=== PATIENT | male | born 1960 | race Caucasian/White ===

== ENCOUNTER 2021-12-16 09:45 | Emergency (ER) | payer OTHER, SELFPAY ==
[2021-12-16 09:45] VITALS: BP 106/77; PULSE 78; RESP 14; TEMP 36.4; O2SAT 93; BMI 25.1
--- NOTE | 2021-12-16 11:28 | RAD_ITS ---
STUDY: X-RAY - LEFT HAND, ATTENTION INDEX FINGER REASON FOR EXAM: Left index finger pain, finger injury. TECHNIQUE: 3 view(s) of the finger were obtained. COMPARISON: None. FINDINGS: Normal metacarpal head. Normal metacarpophalangeal joint. Normal proximal phalanx. Normal middle phalanx. Normal distal phalanx. Normal proximal interphalangeal joint. Normal distal interphalangeal joint. There is a laceration of the distal left index finger with a small foreign body. RAD/Finger(s) Min 2 Views IMPRESSION: Small foreign body in laceration of the distal index finger. Electronically Signed: Jeff Almonte MD at 12:23 EDT ,
--- NOTE | 2021-12-16 12:07 | NURSING ---
See downtime documentation for further information.
--- NOTE | 2021-12-16 12:11 | EX.ED.UPPERE ---
HPI History of Present Illness HPI Narrative: Left index fingertip partial amputation. Chief Complaint: Laceration Informant: patient Onset/Context/Timing Onset: Today Context: Sudden Onset Timing: Continuous Current Severity: Mild Maximum Severity: Mild Associated Symptoms Associated Symptoms: Negative for Parasthesia, Weakness and Loss of Funtion Narrative Narrative: 61-year-old male [id number]. He was at work using a post whole digger and caught his left index finger and it causing a partial rotation of the tip of his left index finger. This occurred about 915. He is unsure of his last tetanus shot will be updated. He does have history of diabetes, hypertension high cholesterol. Tetanus Immunization: Unknown Prior similar symptoms: No Recent Illness/Hospitalization: No PFSH PFSH Home Medications lisinopril 5 mg PO DAILY 08/07/15 [History Last Taken Unknown] metformin 1,000 mg PO BIDCM 08/07/15 [History Last Taken Unknown] ondansetron 4 mg PO Q8H PRN PRN #10 tab 08/07/15 [Rx Last Taken Unknown] oxycodone-acetaminophen 1 - 2 tab PO Q4H PRN PRN #20 tab 08/07/15 [Rx Last Taken Unknown] simvastatin 20 mg PO QHS 08/07/15 [History Last Taken Unknown] tamsulosin 0.4 mg PO DAILY 14 Days capsule 08/07/15 [Rx Last Taken Unknown] Allergy/AdvReac Type Severity Reaction Status Date / Time No Known Allergies Allergy Verified 08/07/15 22:03 Social History Smoking Status: Never smoker ROS ROS ED ROS Narrative Denies recent illness. Review of Systems ROS Unobtainable: Denies due to encephalopathy Constitutional Constitutional ED: Denies fever(s) Eyes Eyes: Denies change in vision ENT ENT ED: Denies ear pain Cardiovascular Cardiovascular: Denies chest pain Respiratory/Chest Respiratory/Chest: Denies dyspnea Gastrointestinal Gastrointestinal: Denies abdominal pain, nausea or vomiting Genitourinary Genitourinary ED: Denies dysuria Musculoskeletal Musculoskeletal: Denies myalgias Integumentary Denies rash Neurologic Neurologic: Denies headache(s) Psychiatric Psychiatric: Denies depression Endocrine Endocrinology: Denies polyuria Hematologic/Lymphatic Hematologic/Lymphatic: Denies easy bruising Allergic/Immunologic Allergic/Immunologic ED: Denies urticaria EXAM Physical Exam Narrative Exam Narrative: 61-year-old male vital signs stable afebrile. HEENT, neck, heart, lung and abdominal exams are unremarkable. His left index finger has a partial amputation of a circular area at the tip where he is basically taken out about 80 to 90% of the blood supply. There is oozing of blood. There is no foreign body. The nailbed and bone do not appear to be involved. He is full range of motion to the finger. There is no infection. No bony deformity. Normal touch sensation. Const Vital Signs: 12/16/21 09:45 Temperature 97.6 F L Temperature Source Temporal Pulse Rate 78 Respiratory Rate 14 Blood Pressure 106/77 Blood Pressure Mean 86 Pulse Ox 93 Oxygen Delivery Method Room Air Positive well nourished and well developed; Negative for obese, cachectic, contractures or unkempt General Appearance ED: well developed and NAD; Negative for unkempt, cachectic, contractures, cyanotic or diaphoretic Nutritional Appearance: Negative for cachectic or obese HEENT Reports moist mucous membranes normocephalic and atraumatic Eyes PERRL and EOMs intact bilaterally Neck full ROM and supple General: Negative for tenderness Chest Wall inspection of chest normal and palpation of chest normal Resp normal respiratory effort and clear to auscultation bilaterally Effort and Inspection: Negative for pain with movement Auscultation: Negative for rales, rhonchi or wheezes Cardio regular rate, regular rhythm, S1 normal heart sound, S2 normal heart sound and no murmurs GI non-tender, non-distended and no masses Auscultation: normoactive bowel sounds Palpation: soft; Negative for tender or guarding Back/Spine no CVA tenderness Extremity normal to inspection and full ROM Extremity Narrative: Except left index finger at the tip he has a circular area that is approximately 3 to 4 cm circumferentially. About 2 cm wide. Its been almost completely avulsed. The partial amputation. General Extremety ED: Negative for edema General Extremity: Negative for edema Neuro oriented x3 Sensorium / Orientation: alert, oriented to person, oriented to place and oriented to time Motor Exam: strength 5/5 throughout Psych mental status grossly normal Appearance: Negative for unkempt Skin Skin Narrative: Left index fingertip partial amputation. Lesions: no lesions Rashes: no rashes Trauma: laceration; Negative for no lacerations or abrasions MDM MDM MDM Narrative Medical decision making narrative: Worker's Comp. left index finger partial amputation. X-ray obtained was negative. No bony abnormality. No foreign body. Area was digitally blocked and repaired. Patient tolerated well. He was given wound care instructions. Tetanus was updated. Radiography Diagnostic Testing: Left index finger x-ray 3 views interpreted myself shows no acute abnormality. Soft tissue injury. No bony deformity. No foreign body. Procedures Lacerations Left index finger partial amputation at the tip: Length: 1.57 in Depth: Sub Q Shape: Flap Prep: Sterile Conditions and Shure-Clens Laceration repair: Digital block, Irrigated, Lidocaine, Nerve block, Skin sutures and Wound explored Number of Sutures/Jenny: 7 Suture Information: Ethilon, Simple and 4-0 Comment: Today fingertip partial amputation. Approximately 4 cm in length. It was circular. Flat. Washed. Explored. Irrigated. After digital block was repaired using 4-0 Ethilon sutures. 7 simple interrupted sutures. Patient tolerated procedure well. Discharge Plan Triage Chief Complaint: Laceration ED Provider: Primitivo Solano Dx/Rx/DC Orders Clinical Impression: Finger laceration, Encounter related to worker's compensation claim Instructions: ED Laceration, Hand: All Closures Prescriptions: No Action simvastatin 10 MG tablet 20 mg PO QHS RF: 0 metformin 1,000 MG tablet 1,000 mg PO BIDCM RF: 0 lisinopril 5 MG tablet 5 mg PO DAILY RF: 0 oxycodone-acetaminophen 1 TABLET tablet 1 - 2 tab PO Q4H PRN PRN (Reason: Pain) Qty: 20 RF: 0 ondansetron 4 MG tablet 4 mg PO Q8H PRN PRN (Reason: Nausea) Qty: 10 RF: 0 tamsulosin 0.4 MG capsule 0.4 mg PO DAILY 14 Days RF: 0 Primary Care Provider: Gregg Torrez Referrals: Gregg Torrez MD [Primary Care Provider] - 10 Day for suture removal Activity Restrictions/Additional Instructions: Keep the wound clean and dry. Do not soak it in bath water or dishwater. If it gets wet or dirty clean and dry it well. Ice and elevate to decrease pain and swelling. If our dressing stays dry and clean leave it on for for 5 days then change and clean daily. Remove the sutures in 10 days. We can do that, you can do it or your primary care physician's office. Any signs of infection such as pus, redness, streaks or fever return. If this takes it will heal nicely. If it does not the skin will dry up eventually come off and it will just be a larger wound that will take longer to heal. Disposition Disposition: Home, Self Care
== END 2021-12-16 12:32 | disposition home or self-care (01) ==
PROVIDERS: Emergency Provider Emergency Medicine; PCP Family Medicine; Visit Provider Emergency Medicine
DX: S68.121A Partial traumatic metacarpophalangeal amputation of left index finger, initial encounter (principal); E11.9 Type 2 diabetes mellitus without complications; E78.00 Pure hypercholesterolemia, unspecified; W23.0XXA Caught, crushed, jammed, or pinched between moving objects, initial encounter; Y99.0 Civilian activity done for income or pay; I10 Essential (primary) hypertension; Z79.899 Other long term (current) drug therapy; Z79.84 Long term (current) use of oral hypoglycemic drugs; Z23 Encounter for immunization
CPT/HCPCS: 12002; 99281; 73140; 90471; 90715; 99284

== ENCOUNTER 2022-05-13 20:25 | Emergency (ER) | payer OTHER, SELFPAY ==
[2022-05-13 20:26] VITALS: BP 131/82; PULSE 78; RESP 18; TEMP 36.7; O2SAT 99; BMI 24.1
--- NOTE | 2022-05-13 20:32 | RAD_ITS ---
STUDY: X-RAY CHEST REASON FOR EXAM: Male, 61 years old. HIT IN THE L RIBS TECHNIQUE: AP portable COMPARISON: None. FINDINGS: The lungs are clear and expanded. There is no demonstrated pleural abnormality. Normal size heart. Normal mediastinum and jono. Normal visualized pulmonary arteries. Normal visualized aortic arch and descending thoracic aorta. Dorsal spine demonstrates mild degenerative change Normal visualized ribs, clavicles, and shoulders. There is no demonstrated abnormality of the visualized soft tissue structures of the upper abdomen. RAD/Chest 1 View IMPRESSION: No acute cardiopulmonary pathology Electronically Signed: oJe Gold MD at 20:47 EDT ,
--- NOTE | 2022-05-13 22:35 | EDS_ITS ---
HPI History of Present Illness Chief Complaint: Other, Pain/Inj Detail of Chief Complaint: Left rib contusion Informant: patient Onset/Context/Timing Onset: Yesterday Current Severity: Mild Maximum Severity: Moderate Narrative Narrative: Patient presents after contusion to left lower ribs. Patient states he was cutting trees yesterday. A tree splintered and came back striking him in the left lower ribs. It knocked him backwards. He had to sit there for a few seconds to catch his breath. Tonight he has had intermittent sharp pain to the left lower ribs. He was concerned about possible internal injury so presented for evaluation. [facility] Medical History (Updated 05/13/22 @ 22:[address] Mariann Gates MD) BPH (benign prostatic hyperplasia) Diabetes High cholesterol Hypertension Medical History no medical history Home Medications lisinopril 5 mg tablet 5 mg PO DAILY 08/07/15 [History Last Taken Unknown] metformin 1,000 mg tablet 1,000 mg PO BIDCM 08/07/15 [History Last Taken Unknown] ondansetron 4 mg disintegrating tablet 4 mg PO Q8H PRN PRN Nausea #10 tabs 08/07/15 [Rx Last Taken Unknown] oxycodone-acetaminophen 5 mg-325 mg tablet 1 - 2 tab PO Q4H PRN PRN Pain #20 tabs 08/07/15 [Rx Last Taken Unknown] simvastatin 10 mg tablet 20 mg PO QHS 08/07/15 [History Last Taken Unknown] tamsulosin 0.4 mg capsule 0.4 mg PO DAILY 14 days 08/07/15 [Rx Last Taken Unknown] Allergy/AdvReac Type Severity Reaction Status Date / Time No Known Allergies Allergy Verified 05/13/22 20:29 Social History Smoking Status: Never smoker ROS ROS ED Constitutional Constitutional ED: Denies chills or fever(s) Eyes Eyes: Denies discharge from eye(s) ENT ENT ED: Denies discharge from eye(s), rhinorrhea or sore throat Cardiovascular Cardiovascular: Reports chest pain; Denies palpitations Respiratory/Chest Respiratory/Chest: Denies cough or dyspnea Gastrointestinal Gastrointestinal: Denies abdominal pain, nausea or vomiting Musculoskeletal Musculoskeletal: Denies back pain Integumentary Denies Abrasions or rash Neurologic Neurologic: Denies headache(s), paresthesias or weakness Psychiatric Psychiatric: Denies anxiety or depression Allergic/Immunologic Allergic/Immunologic ED: Denies lip swelling or urticaria EXAM Physical Exam Const Vital Signs: 05/13/22 20:26 Temperature 98.0 F Temperature Source Temporal Pulse Rate 78 Respiratory Rate 18 Blood Pressure 131/82 H Blood Pressure Mean 98 Pulse Ox 99 Oxygen Delivery Method Room Air Positive well nourished and well developed General Appearance ED: well developed HEENT Reports normocephalic and head/scalp atraumatic Eyes PERRL and EOMs intact bilaterally Neck supple Chest Wall inspection of chest normal Chest Narrative: Reproducible focal tenderness to the left lower anterior ribs along the cartilage/bone border. No crepitus noted. No overlying skin change. Resp normal respiratory effort and clear to auscultation bilaterally Cardio regular rate and regular rhythm GI normal to inspection, nondistended, normoactive bowel sounds Palpation: soft Neuro oriented x3 and no sensory deficits noted Sensorium / Orientation: alert Motor Exam: strength 5/5 throughout Psych mental status grossly normal Skin no rashes or lesions noted MDM MDM MDM Narrative Medical decision making narrative: Chest x-ray obtained per nursing protocol. Radiography Diagnostic Testing: Clinical Impression(s) from Imaging Studies Chest X-Ray 05/13/22 20:32 IMPRESSION: No acute cardiopulmonary pathology Electronically Signed: Joe Gold MD at 20:47 EDT , Treatment and Re-Evaluation Narrative: Chest x-ray per my interpretation shows no obvious rib fracture. No pneumothorax. No free air under the diaphragm. Radiology interpretation is reviewed and agrees. Patient has no tenderness over the spleen or abdomen. He has reproducible tenderness over the bony lower ribs. I do not feel patient needs further imaging. He will continue supportive care at home. Discharge Plan Triage Chief Complaint: Other, Pain/Inj ED Provider: Mariann Gates Dx/Rx/DC Orders Clinical Impression: Chest wall contusion Instructions: ED Chest Wall Contusion Prescriptions: No Action simvastatin 10 MG tablet 20 mg PO QHS metformin 1,000 MG tablet 1,000 mg PO BIDCM lisinopril 5 MG tablet 5 mg PO DAILY oxycodone-acetaminophen 1 TABLET tablet 1 - 2 tab PO Q4H PRN PRN (Reason: Pain) Qty: 20 0RF ondansetron 4 MG tablet 4 mg PO Q8H PRN PRN (Reason: Nausea) Qty: 10 0RF tamsulosin 0.4 MG capsule 0.4 mg PO DAILY 14 Days 0RF Stand Alone Forms: Work Status Form Primary Care Provider: Gregg Torrez Referrals: [facility] [Group of Physicians] - 3-5 Days Gregg Torrez MD [Primary Care Provider] - 10-14 Days if not better Disposition Disposition: Home, Self Care
[2022-05-13] MEDS: predniSONE 20 MG Tablet 40 MG PO (22:56)
== END 2022-05-13 23:06 | disposition home or self-care (01) ==
PROVIDERS: Emergency Provider Emergency Medicine; PCP Family Medicine; Visit Provider Emergency Medicine
DX: S20.20XA Contusion of thorax, unspecified, initial encounter (principal); E11.9 Type 2 diabetes mellitus without complications; R07.9 Chest pain, unspecified; E78.00 Pure hypercholesterolemia, unspecified; I10 Essential (primary) hypertension; X58.XXXA Exposure to other specified factors, initial encounter
CPT/HCPCS: 71045; 99283

== ENCOUNTER → 2025-04-13 | Outpatient (CLI) | payer BC, SELFPAY ==
--- OUTSIDE RECORDS SUMMARY | 2025-04-13 08:20 | XMS RPT_ITS | CCD ---
Author Organization [facility] Inform ion Partnership [facility] Care Team Providers Care Vehicle Safety Inspector Name Role Phone Cisco Koroma MD Primary Care Provider Cisco Koroma MD Primary Care Provider Abraham SLIP TENDER.Karrie KIM Unavailable Scot SLIP TENDER.Cal KIM Unavailable [phone] CISCO KOROMA Primary Care Unavailable KARRIE ROSARIO Attending Unavailable CISCO KOROMA Primary Care Unavailable KARRIE ROSARIO Referring Unavailable CISCO KOROMA Primary Care Unavailable KARRIE ROSARIO Attending Unavailable CISCO KOROMA Primary Care Unavailable KARRIE ROSARIO Referring Unavailable CISCO KOROMA Primary Care Unavailable KARRIE ROSARIO Attending Unavailable CISCO KOROMA Primary Care Unavailable KARRIE ROSARIO Referring Unavailable CISCO KOROMA Primary Care Unavailable KARRIE ROSARIO Attending Unavailable CISCO KOROMA Primary Care Unavailable KARRIE ROSARIO Referring Unavailable Cisco Koroma Primary Care Unavailable Karrie Rosario Attending Unavailable Medications Current Medications Medication Drug Class(es) Dates Sig (Normalized) Sig (Original) acetaminophen 325 mg / oxyCODONE hydrochloride 5 mg oral tablet (2 sources) Opioid Agonist Start: 08-07-2015 take 1 tablet by mouth every four hours as needed Oxycodone-Acetamino phen Active 1 - 2 TABLET PO EVERY 4 HOURS NEEDED August 08, 2015 12:27am aspirin 81 mg delayed release oral tablet (20 sources) Platelet Aggregation Inhibitor, Nonsteroidal Anti-inflammatory Drug Start: 04-18-2014 take 1 tablet by mouth once daily aspirin, enteric coated (ASPIRIN LOW DOSE) 81 mg EC tablet Take 1 tablet by mouth once daily. 0 04/18/2014 Active Comment on above: Take 1 tablet by [facility] once daily. benzonatate 100 mg oral capsule (16 sources) Non-narcotic Antitussive Start: 10-12-2022 take 1 capsule by mouth every eight hours as needed benzonatate (TESSALON PERLES) 100 mg capsule Take 1 capsule by mouth three times daily as needed for cough. 14 capsule 10/12/2022 Active Comment on above: Take 1 capsule by mo [facility] three times daily as needed for cough. 0.5 ml dulaglutide 3 mg/ml auto-injector (7 sources) GLP-1 Receptor Agonist Start: 09-26-2024 End: 03-25-2025 inject 1.5 mg by subcutaneous injection every week dulaglutide (TRULICITY) 1.5 mg/0.5 mL pen injector Indications: Controlled type 2 diabetes mellitus without complication, without long-term current use of insulin (HCC) Inject 1.5 mg subcutaneously one time a week. Discard Pen After 2 mL 5 09/26/2024 03/25/2025 Active Start: 06-06-2024 End: 12-03-2024 inject 0.75 mg by subcutaneous injection every week dulaglutide (TRULICITY) 0.75 mg/0.5 mL pen injector Indications: Controlled type 2 diabetes mellitus without complication, without long-term current use of insulin (HCC) Inject 0.75 mg subcutaneously one time a week. Inject dose once per week. Discard Pen After 2 mL 5 06/06/2024 09/26/2024 Discontinued glimepiride 4 mg oral tablet (20 sources) Sulfonylurea Start: 09-22-2021 End: 10-24-2024 take 2 tablets by mouth once daily at breakfast glimepiride (AMARYL) 4 mg tablet Indications: Controlled type 2 diabetes mellitus without complication, without long-term current use of insulin (HCC) Take 2 tablets by mouth daily with breakfast. 180 tablet 3 10/24/2024 Active Comment on above: Take 2 tablets by mo [facility] daily with breakfast. TAKE 2 TABLETS BY MO [facility] DAILY WITH BREAKFAST lisinopril 2.5 mg oral tablet (20 sources) Angiotensin Converting Enzyme Inhibitor Start: 09-16-2021 End: 10-24-2024 take 1 tablet by mouth once daily lisinopril 2.5 mg tablet Take 1 tablet by mouth once daily. 90 tablet 3 10/24/2024 Active Start: 08-07-2015 take 5 mg by mouth once daily Lisinopril Active 5 MG PO DAILY August 07, 2015 11:25pm Comment on above: Take 1 tablet by berna th once daily. take 1 tablet by berna th once daily metFORMIN hydrochloride 1000 mg oral tablet (20 sources) Biguanide Start: 016 End: 025 take 1 tablet by mouth twice daily at mealtime metFORMIN (GLUCOPHAGE) 1,000 mg tablet Indications: Controlled type 2 diabetes mellitus without complication, without long-term current use of insulin (HCC) Take 1 tablet by mouth two times a day with meals. 180 tablet 3 10/24/2024 Active Comment on above: Take 1 tablet by berna th twice daily with meals. take 1 tablet by berna th twice daily with meals ondansetron 4 mg disintegrating oral tablet (2 sources) Serotonin-3 Receptor Antagonist Start: 016 take 4 mg by mouth every eight hours as needed Ondansetron Active 4 MG PO EVERY 8 HOURS NEEDED August 08, 2015 12:27am pioglitazone 30 mg oral tablet (10 sources) Peroxisome Proliferator Receptor alpha Agonist, Peroxisome Proliferator Receptor gamma Agonist, Thiazolidinedione Start: 024 End: 026 take 1 tablet by mouth once daily pioglitazone (ACTOS) 30 mg tablet Indications: Controlled type 2 diabetes mellitus without complication, without long-term current use of insulin (HCC) Take 1 tablet by mouth once daily. 90 tablet 3 10/24/2024 10/24/2025 Active Start: 11-09-2023 End: 02-08-2024 take 1 tablet by mouth once daily pioglitazone (ACTOS) 15 mg tablet Indications: Controlled type 2 diabetes mellitus without complication, without long-term current use of insulin (HCC) Take 1 tablet by mouth once daily. 30 tablet 11 11/09/2023 02/08/2024 Discontinued Comment on above: Take 1 tablet by berna th once daily. predniSONE 20 mg oral tablet (2 sources) Start: 10-13-19 End: 10-17-19 take 2 tablets by mouth once daily at mealtime predniSONE (DELTASONE) 20 mg tablet Take 2 tablets by mouth once daily for 4 days. Take daily with food. 8 tablet 0 10/12/2022 10/16/2022 Active Comment on above: Take 2 tablets by mo [facility] once daily for 4 days. Take daily with food. propranolol hydrochloride 10 mg oral tablet (1 source) beta-Adrenergic Reza Start: 10-25-19 End: 04-22-20 take 1 tablet by mouth twice daily propranolol (INDERAL) 10 mg tablet Indications: Tremor Take 1 tablet by mouth two times a day. 60 tablet 5 10/24/2024 04/22/2025 Active simvastatin 20 mg oral tablet (20 sources) HMG-CoA Reductase Inhibitor Start: 09-16-19 End: 10-25-19 take 1 tablet by mouth once daily at bedtime simvastatin (ZOCOR) 20 mg tablet Indications: Controlled type 2 diabetes mellitus without complication, without long-term current use of insulin (HCC) , Mixed hyperlipidemia Take 1 tablet by mouth daily at bedtime. 90 tablet 3 10/24/2024 Active Start: 08-07-2015 take 20 mg by mouth at bedtime Simvastatin Active 20 MG PO AT BEDTIME August 07, 2015 11:25pm Comment on above: Take 1 tablet by berna daily at bedtime. take 1 tablet by berna th daily at bedtime SUMAtriptan 100 mg oral tablet (20 sources) Serotonin-1b and Serotonin-1d Receptor Agonist Start: 022 End: SUMAtriptan (IMITREX) 100 mg tablet Indications: Migraine without aura, intractable, without status migrainosus Take 1 tablet by mouth as needed for migraine headache (see administration instructions). 9 tablet 5 11/08/2022 Active Comment on above: Take 1 tablet by berna th as needed for migraine headache (see administration instructions). tamsulosin hydrochloride 0.4 mg oral capsule (2 sources) alpha-Adrenergic Reza Start: 016 take 0.4 mg by mouth once daily Tamsulosin Active 0.4 MG PO DAILY August 08, 2015 12:27am traZODone hydrochloride 100 mg oral tablet (5 sources) Serotonin Reuptake Inhibitor Start: 024 End: 025 take 1 tablet by mouth once daily at bedtime traZODone (DESYREL) 100 mg tablet Indications: Difficulty sleeping Take 1 tablet by mouth daily at bedtime. 30 tablet 5 02/08/2024 08/06/2024 Active Start: 11-09-2023 End: 02-07-2024 take 1 tablet by mouth once daily at bedtime traZODone (DESYREL) 50 mg tablet Indications: Difficulty sleeping Take 1 tablet by mouth daily at bedtime. 30 tablet 2 11/09/2023 02/07/2024 Active Comment on above: Take 1 tablet by berna th daily at bedtime. Problems Active Problems Problem Classification Problem Date Documented Da te Episodic/Chronic Chronic obstructive pulmonary disease and bronchiectasis (1 source) Bronchitis; Translations: [Bronchitis, not specified as acute or chronic] Episodic Diabetes mellitus without complication (20 sources) Type 2 diabetes mellitus without complication; Translations: [Type 2 diabetes mellitus without complications] Onset: 01-15-2009 07-18-2015 Chronic Disorders of lipid metabolism (20 sources) Mixed hyperlipidemia; Translations: [Mixed hyperlipidemia] Onset: 01-15-2009 01-15-2009 Chronic Essential hypertension (5 sources) Essential hypertension; Translations: [Essential (primary) hypertension] Onset: 02-08-2024 11-07-2023 Chronic Headache; including migraine (20 sources) Migraine without aura, not refractory ; Translations: [Migraine without aura, not intractable, without status migrainosus] Onset: 02-24-2018 02-24-2018 Chronic Open wounds of extremities (2 sources) Laceration of finger; Translations: [Laceration without foreign body of unspecified finger without damage to nail, initial encounter] Episodic Other aftercare (1 source) Removal of sutures done; Translations: [Encounter for removal of sutures] Episodic Other hereditary and degenerative nervous system conditions (20 sources) Essential tremor; Translations: [Essential tremor] Onset: 07-18-2015 07-18-2015 Chronic Other injuries and conditions due to external causes (1 source) Injury of finger; Translations: [Unspecified injury of left wrist, hand and finger(s), initial encounter] Episodic Other injuries and conditions due to external causes (1 source) Muscle strain; Translations: [Other injury of unspecified body region, initial encounter] Episodic Other lower respiratory disease (1 source) Cough; Translations: [Acute cough] Episodic Other lower respiratory disease (1 source) Cough; Translations: [Acute cough] 10-12-2022 Episodic Other nervous system disorders (2 sources) Tremor; Translations: [Tremor, unspecified] 06-06-2024 Episodic Other nervous system disorders (1 source) Tremor, unspecified; Translations: [Tremor] Onset: 10-24-2024 Episodic Other non-traumatic joint disorders (2 sources) Pain in elbow; Translations: [Pain in right elbow] Episodic Residual codes; unclassified (3 sources) Difficulty sleeping ; Translations: [Sleep disorder, unspecified] 11-09-2023 Episodic Superficial injury; contusion (1 source) Contusion of chest; Translations: [Contusion of unspecified front wall of thorax, initial encounter] Episodic Past or Other Problems Problem Classification Problem Date Documented Da te Episodic/Chronic Abdominal pain (9 sources) Abdominal pain; Translations: [Unspecified abdominal pain] Onset: 02-21-2007 Resolved: 08-28-2010 08-28-2010 Episodic Administrative/social admission (12 sources) Patient encounter status; Translations: [Encounter for examination for insurance purposes] Onset: 07-15-2008 Resolved: 08-28-2010 08-28-2010 Episodic Calculus of urinary tract (20 sources) Kidney stone; Translations: [Calculus of kidney] Onset: 02-13-2016 02-13-2016 Episodic Immunizations and screening for infectious disease (1 source) Encounter for immunization; Translations: [Encounter for immunization] Onset: 06-06-2024 Episodic Other injuries and conditions due to external causes (20 sources) Foreign body in left cornea; Translations: [Foreign body in cornea, left eye, initial encounter] Onset: 07-20-2018 07-20-2018 Episodic Residual codes; unclassified (1 source) Sleep disorder, unspecified; Translations: [Difficulty sleeping] Onset: 02-08-2024 Episodic Spondylosis; intervertebral disc disorders; other back problems (20 sources) Cervical radiculopathy; Translations: [Radiculopathy, cervical region] Onset: 10-01-2010 10-01-2010 Episodic Results Test Name Value Interpretation Reference Range Facility [facility] 10-24-2024 CNOV Office Visit (FAMPWS ) ERICK SERNA ([id number]) 1960 M Date Time Provider Department 10/24/24 3:20 PM KARRIE ROSARIO During your visit today, we recorded the following information about you: Pulse Respiration Blood pressure Weight 98/minute 16/minute 130/88 75.5 kg Karrie Rosario APRN.CNP 10/24/2024 6:31 PM Signed This is a 63 year old male who presents today with: Patient presents with: Follow Up: 3 month HISTORY OF PRESENT ILLNESS: Erick Serna is a 63 year old male. Patient presents with: Follow Up: 3 month 3 month follow up Tremor in the hands bilaterally, has been on going for years. 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 Denies difficulty with gait, no family history of Parkinson's. Refers that symptoms seem to be getting worse. Has noticed some trouble trying to weld at work. Has an active consult for neurology, has yet to schedule. DM: Reports overall feeling well. Medication side effects: No. Home sugar checks: 130-150's Hypoglycemic spells: No. Watching diet: Trying to work on watching diet but due to work will eat late. Likes sweets. Unexpected weight loss: No. Polyuria, polydipsia: No. Vision Changes: No. Foot lesions or numbness or pain: No. Taking Metformin 1000 mg BID, amaryl 4 mg, 2 tablets daily, Actos 30 mg daily, and in September increase Trulicity 1.5 mg weekly. Had to stop Amaryl due to hypoglycemia, since he has been out of Trulicity due to cost started back on current dosing of Amaryl. Last A1C 7.0. Repeat labs due in November. due for eye exam. Refers that he has been having difficulty getting Trulicity due to insurance deductible. Has noticed some tingling in the tip of the feet at the end of the day and then resolves. Noitces in the morning and evening. HTN: Taking Lisinopril 2.5 mg for kidney protection. Migraines: Stable without medication Lipids: Taking atorvastatin 20 mg daily. Watching diet. Colonoscopy: Past due, would like to address at next visit. PAST MEDICAL HISTORY: PAST MEDICAL HISTORY Diagnosis Date Back pain Essential hypertension Hypercholesteremia Other and unspecified hyperlipidemia Type II or unspecified type diabetes mellitus without mention of complication, not stated as uncontrolled PAST SURGICAL HISTORY Procedure Laterality Date APPENDECTOMY 1990 COLONOSCOPY FLX DX W/COLLJ SPEC WHEN PFRMD Colonoscopy PAST SURGICAL HISTORY OF 05/23/2002 VENTERAL HERNIA REPAIR ALLERGIES Patient has no known allergies. MEDICATIONS Current Outpatient Medications Medication Sig dulaglutide (TRULICITY) 1.5 mg/0.5 mL pen injector Inject 1.5 mg subcutaneously one time a week. Discard Pen After pioglitazone (ACTOS) 30 mg tablet Take 1 tablet by mouth once daily. simvastatin (ZOCOR) 20 mg tablet take 1 tablet by mouth daily at bedtime lisinopril 2.5 mg tablet take 1 tablet by mouth once daily glimepiride (AMARYL) 4 mg tablet TAKE 2 TABLETS BY MOUTH DAILY WITH BREAKFAST metFORMIN (GLUCOPHAGE) 1,000 mg tablet take 1 tablet by mouth twice daily with meals SUMAtriptan (IMITREX) 100 mg tablet Take 1 tablet by mouth as needed for migraine headache (see administration instructions). benzonatate (TESSALON PERLES) 100 mg capsule Take 1 capsule by mouth three times daily as needed for cough. (Patient not taking: Reported on 12/29/2022) blood sugar diagnostic (BLOOD GLUCOSE TEST) test strip Test blood sugar(s) 1 times daily. Dx: Type 2 DM - Controlled E11.9 Insulin: No aspirin, enteric coated (ASPIRIN LOW DOSE) 81 mg EC tablet Take 1 tablet by mouth once daily. No current facility-administered medications for this visit. FAMILY HISTORY Problem Relation Age of Onset Diabetes Father No Ocular Disease No Family History Social History Tobacco Use Smoking status: Never Smokeless tobacco: Never Vaping Use Vaping status: Never Used Substance Use Topics Alcohol use: No Drug use: No REVIEW OF SYSTEMS GENERAL: No weight loss, malaise or fevers/chills HEENT: Negative for frequent or significant headaches, No changes in hearing or vision. NECK: Negative for lumps, goiter, pain and significant neck swelling RESPIRATORY: Negative for cough, hemoptysis, wheezing, dyspnea or shortness of breath CARDIOVASCULAR: Negative for chest pain, leg swelling, orthopnea, or palpitations GI: No nausea, vomiting, or diarrhea/constipation. No hematochezia/melena. No heartburn or reflux symptoms. : No history of dysuria, frequency or incontinence MUSCULOSKELETAL: Negative for joint pain or swelling. SKIN: Negative for lesions, rash, and itching ENDOCRINE: Negative for cold or heat intolerance, polyuria, polydipsia and goiter NEURO: + Tremor MOOD: Negative for depression, anxiety, or suicidal ideation. EXAM: BP 130/88 Pulse 98 Resp 16 Wt 75.5 kg (166 lb 7.2 oz) SpO2 98% BMI 23.21 (more content not included)... [facility] (FAMWS) ERICK SERNA ([id number]) 1960 M Date Time Provider Department 09/03/24 [facility] During your visit today, we recorded the following information about you: Karrie Rosario APRN.JULIO 09/03/2024 9:09 AM Signed Can you please call the patient and let him know that I reviewed his lab results. Labs are relatively stable. A1c went from 7.6 to 7.0. I would recommend increasing the Trulicity 1.5 mg weekly and recheck fasting labs in 3 months with office visit. Please let me know what he prefers. I would like him to continue to work on eating a low-carb diet and get some form exercise. Thank you. Karrie Rosario APRN.Garry Kennedy LPN 09/03/2024 9:27 AM Signed Patient notified of results, verbalizes understanding of instructions. Pt made 3 month appt. Garry Gonsales LPN Allergies As of Date: 09/03/2024 (No Known Allergies) Date Reviewed: 06/06/2024 Reviewed by: Garry Gonsales LPN - Fully Assessed Reason for Visit: Results [95] Cmt: Labs Primary Visit Diagnosis:Controlled type 2 diabetes mellitus without complication, without long-term current use of insulin (HCC) [E11.9] Other Visit Diagnosis:Mixed hyperlipidemia [E78.2] Order(s):COMPREHENSIVE METABOLIC PANEL [SQCMP] Order #: [id number] FUTURE HEMOGLOBIN A1C [WLYCW7E] Order #: [id number] FUTURE LIPID PANEL BASIC [SQLIPB] Order #: [id number] FUTURE Prescriptions as of 09/03/2024 - dulaglutide (TRULICITY) 0.75 mg/0.5 mL pen injector Inject 0.75 mg subcutaneously one time a week. Inject dose once per week. Discard Pen After - pioglitazone (ACTOS) 30 mg tablet Take 1 tablet by mouth once daily. - simvastatin (ZOCOR) 20 mg tablet take 1 tablet by mouth daily at bedtime - lisinopril 2.5 mg tablet take 1 tablet by mouth once daily - glimepiride (AMARYL) 4 mg tablet TAKE 2 TABLETS BY MOUTH DAILY WITH BREAKFAST - metFORMIN (GLUCOPHAGE) 1,000 mg tablet take 1 tablet by mouth twice daily with meals - SUMAtriptan (IMITREX) 100 mg tablet Take 1 tablet by mouth as needed for migraine headache (see administration instructions). - benzonatate (TESSALON PERLES) 100 mg capsule Take 1 capsule by mouth three times daily as needed for cough. - blood sugar diagnostic (BLOOD GLUCOSE TEST) test strip Test blood sugar(s) 1 times daily. Dx: Type 2 DM - Controlled E11.9 Insulin: No - aspirin, enteric coated (ASPIRIN LOW DOSE) 81 mg EC tablet Take 1 tablet by mouth once daily. Problem List As Of Date 09/03/2024 Noted Resolved Abdominal pain, other specified site [R10.9] 02/21/2007 08/28/2010 Screening for unspecified condition [Z13.9] 07/15/2008 08/28/2010 MIXED HYPERLIPIDEMIA [E78.2] 01/15/2009 Diabetes mellitus type 2, controlled, without c*01/15/2009 Cervical radiculopathy [M54.12] 10/01/2010 Benign essential tremor [G25.0] 07/18/2015 Kidney stone [N20.0] 02/13/2016 Migraine without aura and without status migrai*02/24/2018 Foreign body of left cornea [T15.02XA] 07/20/2018 Type 2 diabetes mellitus without retinopathy (H*07/20/2018 Encounter Status:Closed by GARRY GONSALES on 09/03/24 Normal [facility] Comprehensive metabolic 2000 panelon 08-31-2024 Albumin [Mass/Vol] 4.2 g/dL Normal 3.9-4.9 [facility] Comment on above: Order Comment: Speci men Type: BLOOD SPECIMEN Ordering Facility: [facility] Address: [address] [place] [address] Performed By: #### 5 5454-3 #### [facility] CLIA [id number] [address] [place] [address] [place] ALP [Catalytic activity/Vol] 64 U/L Normal 38-113 [facility] Comment on above: Order Comment: Speci men Type: BLOOD SPECIMEN Ordering Facility: [facility] Address: [address] [place] [address] Performed By: #### 5 5454-3 #### [facility] CLIA [id number] [address] [place] [address] [place] ALT [Catalytic activity/Vol] 16 U/L Normal 10-54 [facility] Comment on above: Order Comment: Speci men Type: BLOOD SPECIMEN Ordering Facility: [facility] Address: [address] [place] [address] Performed By: #### 5 5454-3 #### [facility] CLIA [id number] [address] [place] [address] [place] Anion gap [Moles/Vol] 11 mmol/L Normal 8-15 [facility] Comment on above: Order Comment: Speci men Type: BLOOD SPECIMEN Ordering Facility: [facility] Address: [address] [place] [address] Performed By: #### 5 5454-3 #### [facility] CLIA [id number] [address] [place] [address] [place] AST [Catalytic activity/Vol] 19 U/L Normal 14-40 [facility] Comment on above: Order Comment: Speci men Type: BLOOD SPECIMEN Ordering Facility: [facility] Address: [address] [place] [address] Performed By: #### 5 5454-3 #### [facility] CLIA [id number] [address] [place] [address] [place] Bilirubin [Mass/Vol] 0.8 mg/dL Normal 0.2-1.3 [facility] Comment on above: Order Comment: Speci men Type: BLOOD SPECIMEN Ordering Facility: [facility] Address: [address] [place] [address] Performed By: #### 5 5454-3 #### [facility] CLIA [id number] [address] [place] [address] [place] Calcium [Mass/Vol] 8.8 mg/dL Normal 8.5-10.2 [facility] Comment on above: Order Comment: Speci men Type: BLOOD SPECIMEN Ordering Facility: [facility] Address: [address] [place] [address] Performed By: #### 5 5454-3 #### [facility] CLIA [id number] [address] [place] [address] [place] Chloride [Moles/Vol] 104 mmol/L Normal 98-107 [facility] Comment on above: Order Comment: Speci men Type: BLOOD SPECIMEN Ordering Facility: [facility] Address: [address] [place] [address] Performed By: #### 5 5454-3 #### [facility] CLIA [id number] [address] [place] [address] [place] CO2 [Moles/Vol] 27 mmol/L Normal 22-30 [facility] Comment on above: Order Comment: Speci men Type: BLOOD SPECIMEN Ordering Facility: [facility] Address: [address] [place], [place] [id number] Performed By: #### 5 5454-3 #### [facility] CLIA [id number] [address] [place] [address] [place] Creatinine [Mass/Vol] 1.29 mg/dL High 0.73-1.22 [facility] Comment on above: Order Comment: Anaya cuevas Type: BLOOD SPECIMEN Ordering Facility: [facility] Address: [address] [place] [address] Performed By: #### 5 5454-3 #### [facility] CLIA [id number] [address] [place] [address] [place] Creatinine and Glomerular filtration rate.predicted panel (S/P/Bld) 62 mL/min/1.73m??? Normal >=60 [facility] Comment on above: Order Comment: Anaya cuevas Type: BLOOD SPECIMEN Ordering Facility: [facility] Address: [address] [place] [address] Result Comment: Guera mated Glomerular Filtration Rate (eGFR) is calculated using the 2020 CKD-EPI creatinine equation. This equation utilizes serum creatinine, sex, and age as parameters. The creatinine assay has traceable calibration to isotope dilution-mass spectrometry. Refer to KDIGO guidelines for clinical interpretation. In patients with unstable renal function, e.g. those with acute kidney injury, the eGFR may not accurately reflect actual GFR. Performed By: #### 5 5454-3 #### [facility] CLIA [id number] [address] [place] [address] [place] Glucose [Mass/Vol] 142 mg/dL High 74-99 [facility] Comment on above: Order Comment: Anaya cuevas Type: BLOOD SPECIMEN Ordering Facility: [facility] Address: [address] [place] [address] Result Comment: The [place] Diabetes Association (ADA) provides guidance for cutoff values for fasting glucose and random glucose. The ADA defines fasting as no caloric intake for at least 8 hours. Fasting plasma glucose results between 100 to 125 mg/dL indicate increased risk for diabetes (prediabetes). Fasting plasma glucose results greater than or equal to 126 mg/dL meet the criteria for diagnosis of diabetes. In the absence of unequivocal hyperglycemia, results should be confirmed by repeat testing. In a patient with classic symptoms of hyperglycemia or hyperglycemic crisis, random plasma glucose results greater than or equal to 200 mg/dL meet the criteria for diagnosis of diabetes. Reference: Standards of Medical Care in Diabetes 2016, [place] Diabetes Association. Diabetes Care. 2016.39(Suppl 1). Performed By: #### 5 5454-3 #### [facility] CLIA [id number] [address] [place] [address] [place] Potassium [Moles/Vol] 5.1 mmol/L Normal 3.7-5.1 [facility] Comment on above: Order Comment: Speci men Type: BLOOD SPECIMEN Ordering Facility: [facility] Address: [address] [place] [address] Performed By: #### 5 5454-3 #### [facility] CLIA [id number] [address] [place] [address] [place] Protein [Mass/Vol] 6.5 g/dL Normal 6.3-8.0 [facility] Comment on above: Order Comment: Speci men Type: BLOOD SPECIMEN Ordering Facility: [facility] Address: [address] [place] [address] Performed By: #### 5 5454-3 #### [facility] CLIA [id number] [address] [place] [address] [place] Sodium [Moles/Vol] 142 mmol/L Normal 136-144 [facility] Comment on above: Order Comment: Speci men Type: BLOOD SPECIMEN Ordering Facility: [facility] Address: [address] [place] [address] Performed By: #### 5 5454-3 #### [facility] CLIA [id number] [address] [place] [address] [place] Urea nitrogen [Mass/Vol] 29 mg/dL High 9-24 [facility] Comment on above: Order Comment: Speci men Type: BLOOD SPECIMEN Ordering Facility: [facility] Address: [address] [place] [address] Performed By: #### 5 5454-3 #### [facility] [place] [id number] [address] [place] [address] OF [facility] HbA1c (Bld)on 08-31-2024 Average glucose Estimated from glycated hemoglobin (Bld) [Mass/Vol] 154 mg/dL Normal [facility] Comment on above: Order Comment: Anaya cuevas Type: BLOOD SPECIMEN Ordering Facility: [facility] Address: [address] [place] [address] Result Comment: eAG: (Estimated average glucose) is a calculated value from HgbA1c and is advertising sales representative of the average blood glucose level in the last 2-3 month period. Performed By: #### 5 5454-3 #### [facility] IA [id number] [address] [place] [address] HbA1c (Bld) [Mass fraction] 7.0 % High 4.3-5.6 [facility] Comment on above: Order Comment: nAaya cuevas Type: BLOOD SPECIMEN Ordering Facility: [facility] Address: [address] [place] [address] Result Comment: Amer [place] Diabetes Association guidelines indicate that patients with HgbA1c in the range 5.7-6.4% are at increased risk for development of diabetes, and intervention by lifestyle modification may be beneficial. HgbA1c greater or equal to 6.5% is considered diagnostic of diabetes. Performed By: #### 5 5454-3 #### [facility] IA [id number] [address] [place] [address] OF [facility] Marcial 07-30-2024 CNPN Telephone (FAMPWS) ERICK SERNA ([id number]) 1960 M Date Time Provider Department 07/30/24 CISCO KOROMA During your visit today, we recorded the following information about you: Jessica Yin RN 07/30/2024 4:14 PM Signed Patient calling to give Karrie Rosario CNP a message. Patient reports Karrie ordered him Trulicity a couple months ago. He was able to pay $25-34 per month over the last 2 months, but his pharmacy has informed him that it will now cost him $900 a month. Patent states he cannot afford this and asking if Karrie can advise him. Patient also states his pharmacy told him that he will most likely have a high cost no matter what injectable medication is ordered.due to him having a high deducible. He believes he will likely have to take oral medication, moving forward, but he will await response from Karrie. Sandie advise patient. Thank you. Karrie Rosario APRN.JULIO 07/31/2024 12:34 PM Signed Can you please call the patient back and let him know that he has a couple options to consider. Most of the injectables such as Ozempic and Mounjaro offer savings cards on their websites. Usually this will give you a deal for 24 months. If he prefers to use oral medication this would include SGLT2 medication such as Farxiga or Jardiance. He is Welcome to check with his insurance to evaluate cost. Thank you Karrie Rosario APRN.Ami Thompson RN 07/31/2024 1:16 PM Signed Pt called and is notified of providers results and instructions. Pt voices understanding. He is going to see if his insurance will put the medication through now. He is going to call and see about the cost and will call back in. Ami Nova RN Allergies As of Date: 07/30/2024 (No Known Allergies) Date Reviewed: 06/06/2024 Reviewed by: Garry Gonsales LPN - Fully Assessed Reason for Visit: Patient Request [1696] Prescriptions as of 08/03/2024 - dulaglutide (TRULICITY) 0.75 mg/0.5 mL pen injector Inject 0.75 mg subcutaneously one time a week. Inject dose once per week. Discard Pen After - pioglitazone (ACTOS) 30 mg tablet Take 1 tablet by mouth once daily. - traZODone (DESYREL) 100 mg tablet Take 1 tablet by mouth daily at bedtime. - simvastatin (ZOCOR) 20 mg tablet take 1 tablet by mouth daily at bedtime - lisinopril 2.5 mg tablet take 1 tablet by mouth once daily - glimepiride (AMARYL) 4 mg tablet TAKE 2 TABLETS BY MOUTH DAILY WITH BREAKFAST - metFORMIN (GLUCOPHAGE) 1,000 mg tablet take 1 tablet by mouth twice daily with meals - SUMAtriptan (IMITREX) 100 mg tablet Take 1 tablet by mouth as needed for migraine headache (see administration instructions). - benzonatate (TESSALON PERLES) 100 mg capsule Take 1 capsule by mouth three times daily as needed for cough. - blood sugar diagnostic (BLOOD GLUCOSE TEST) test strip Test blood sugar(s) 1 times daily. Dx: Type 2 DM - Controlled E11.9 Insulin: No - aspirin, enteric coated (ASPIRIN LOW DOSE) 81 mg EC tablet Take 1 tablet by mouth once daily. 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] 07/20/2018 Type 2 diabetes mellitus without retinopathy (H*07/20/2018 Encounter Status:Closed by JESSICA YIN on 08/03/24 [facility] 06-06-2024 CNOV Office Visit (FAMPWS ) ERICK SERNA ([id number]) 1960 M Date Time Provider Department 06/06/24 6:00 PM KARRIE ROSARIO During your visit today, we recorded the following information about you: Pulse Respiration Blood pressure Weight 84/minute 16/minute 128/80 78.1 kg Karrie Rosario APRN.[place] [employer] 06/06/2024 6:35 PM Signed This is a 63 year old male who presents today with: Patient presents with: Follow Up: 3 month follow up and labs HISTORY OF PRESENT ILLNESS: Erick Serna is a 63 year old male. Patient presents with: Follow Up: 3 month follow up and labs 3 month follow up Tremor in the hands bilaterally, has been on going for years. 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 Denies difficulty with gait, no family history of Parkinson's. DM: Reports overall feeling well. Medication side effects: No. Home sugar checks: 130-150's Hypoglycemic spells: No. Watching diet: Trying to work on watching diet but due to work will eat late. Likes sweets. Unexpected weight loss: No. Polyuria, polydipsia: No. Vision Changes: No. Foot lesions or numbness or pain: No. Taking Metformin 1000 mg BID, amaryl 4 mg, 2 tablets daily. At last office visit Increased Actos 30 mg daily. A1C went from 7.7 to 7.6. Due for eye exam. Has noticed some tingling in the tip of the feet at the end of the day and then resolves. Noitces in the morning and evening. Sleep: Using trazodone 100 mg as needed. HTN: Taking Lisinopril 2.5 mg for kidney protection. Migraines: Stable without medication Lipids: Taking atorvastatin 20 mg daily. Watching diet. Colonoscopy: Past due, would like to address at next visit. Vaccines: Would like flu vaccine PAST MEDICAL HISTORY: PAST MEDICAL HISTORY Diagnosis Date Back pain Essential hypertension Hypercholesteremia Other and unspecified hyperlipidemia Type II or unspecified type diabetes mellitus without mention of complication, not stated as uncontrolled PAST SURGICAL HISTORY Procedure Laterality Date APPENDECTOMY 1990 COLONOSCOPY FLX DX W/COLLJ SPEC WHEN PFRMD Colonoscopy PAST SURGICAL HISTORY OF 05/23/2002 VENTERAL HERNIA REPAIR ALLERGIES Patient has no known allergies. MEDICATIONS Current Outpatient Medications Medication Sig pioglitazone (ACTOS) 30 mg tablet Take 1 tablet by mouth once daily. traZODone (DESYREL) 100 mg tablet Take 1 tablet by mouth daily at bedtime. simvastatin (ZOCOR) 20 mg tablet take 1 tablet by mouth daily at bedtime lisinopril 2.5 mg tablet take 1 tablet by mouth once daily glimepiride (AMARYL) 4 mg tablet TAKE 2 TABLETS BY MOUTH DAILY WITH BREAKFAST metFORMIN (GLUCOPHAGE) 1,000 mg tablet take 1 tablet by mouth twice daily with meals SUMAtriptan (IMITREX) 100 mg tablet Take 1 tablet by mouth as needed for migraine headache (see administration instructions). benzonatate (TESSALON PERLES) 100 mg capsule Take 1 capsule by mouth three times daily as needed for cough. (Patient not taking: Reported on 12/29/2022) blood sugar diagnostic (BLOOD GLUCOSE TEST) test strip Test blood sugar(s) 1 times daily. Dx: Type 2 DM - Controlled E11.9 Insulin: No aspirin, enteric coated (ASPIRIN LOW DOSE) 81 mg EC tablet Take 1 tablet by mouth once daily. No current facility-administered medications for this visit. FAMILY HISTORY Problem Relation Age of Onset Diabetes Father No Ocular Disease No Family History Social History Tobacco Use Smoking status: Never Smokeless tobacco: Never Vaping Use Vaping status: Never Used Substance Use Topics Alcohol use: No Drug use: No REVIEW OF SYSTEMS GENERAL: No weight loss, malaise or fevers/chills HEENT: Negative for frequent or significant headaches, No changes in hearing or vision. NECK: Negative for lumps, goiter, pain and significant neck swelling RESPIRATORY: Negative for cough, hemoptysis, wheezing, dyspnea or shortness of breath CARDIOVASCULAR: Negative for chest pain, leg swelling, orthopnea, or palpitations GI: No nausea, vomiting, or diarrhea/constipation. No hematochezia/melena. No heartburn or reflux symptoms. : No history of dysuria, frequency or incontinence MUSCULOSKELETAL: Negative for joint pain or swelling. SKIN: Negative for lesions, rash, and itching ENDOCRINE: Negative for cold or heat intolerance, polyuria, polydipsia and goiter NEURO: + Tremor MOOD: Negative for depression, anxiety, or suicidal ideation. EXAM: BP 128/80 Pulse 84 Resp 16 Wt 78.1 kg (172 lb 2.9 oz) SpO2 96% BMI 24.01 kg/m? PHYSICAL EXAM: General Appearance: Well appearing, alert, in no acute distress, well-hydrated, well nourished.. Skin: Skin color, texture, turgor normal, no suspicious rashes or lesions. Head: Normocephalic, no masses, lesions, tenderness or abnormalities. Eyes: Anicteric sclera. Pupils are equally round and reactive to (more content not included)... Normal [facility] ALBUMIN/CREATININE RATIO, UR INEon 06-02-2024 Albumin DL <= 20 mg/L (U) [Mass/Vol] 16.5 mg/L Normal [facility] Comment on above: Order Comment: Speci men Type: URINE SPECIMEN Ordering Facility: [facility] Address: [address] [place] [address] Performed By: #### U ACR #### [facility] CLIA [id number] [address] [place] [address] [place] Albumin/Creatinine (U) [Mass ratio] 12 mg/g Normal <30 [facility] Comment on above: Order Comment: Speci men Type: URINE SPECIMEN Ordering Facility: [facility] Address: [address] [place] [address] Result Comment: Adul t Male and Female Nephrotic Criteria: <30 mg/g is considered normal to mildly increased 30-300 mg/g is considered moderately increased >300 mg/g is considered severely increased KDIGO. (2013). KDIGO 2012 Clinical Practice Guideline for the Evaluation and Management of Chronic Kidney Disease. Official Journal of the International Society of Nephrology, 3(1), 1-150. Performed By: #### U ACR #### [facility] CLIA [id number] [address] [place] [address] [place] Creatinine (U) [Mass/Vol] 137.6 mg/dL Normal 20.0-300.0 [facility] Comment on above: Order Comment: Speci men Type: URINE SPECIMEN Ordering Facility: [facility] Address: [address] [place] [address] Performed By: #### U ACR #### [facility] CLIA [id number] [address] [place] [address] [place] Comprehensive metabolic 2000 panelon 06-02-2024 Albumin [Mass/Vol] 4.2 g/dL Normal 3.9-4.9 [facility] Comment on above: Order Comment: Speci men Type: BLOOD SPECIMEN Ordering Facility: [facility] Address: [address] [place] [address] Performed By: #### 5 5454-3 #### [facility] CLIA [id number] [address] [place] [address] [place] ALP [Catalytic activity/Vol] 70 U/L Normal 38-113 [facility] Comment on above: Order Comment: Speci men Type: BLOOD SPECIMEN Ordering Facility: [facility] Address: [address] [place] [address] Performed By: #### 5 5454-3 #### [facility] CLIA [id number] [address] [place] [address] [place] ALT [Catalytic activity/Vol] 18 U/L Normal 10-54 [facility] Comment on above: Order Comment: Speci men Type: BLOOD SPECIMEN Ordering Facility: [facility] Address: [address] [place] [address] Performed By: #### 5 5454-3 #### [facility] CLIA [id number] [address] [place] [address] [place] Anion gap [Moles/Vol] 13 mmol/L Normal 8-15 [facility] Comment on above: Order Comment: Speci men Type: BLOOD SPECIMEN Ordering Facility: [facility] Address: [address] [place] [address] Performed By: #### 5 5454-3 #### [facility] CLIA [id number] [address] [place] [address] [place] AST [Catalytic activity/Vol] 22 U/L Normal 14-40 [facility] Comment on above: Order Comment: Speci men Type: BLOOD SPECIMEN Ordering Facility: [facility] Address: [address] [place] [address] Performed By: #### 5 5454-3 #### [facility] CLIA [id number] [address] [place] [address] [place] Bilirubin [Mass/Vol] 1.0 mg/dL Normal 0.2-1.3 [facility] Comment on above: Order Comment: Speci men Type: BLOOD SPECIMEN Ordering Facility: [facility] Address: [address] [place] [address] Performed By: #### 5 5454-3 #### [facility] CLIA [id number] [address] [place] [address] [place] Calcium [Mass/Vol] 8.1 mg/dL Low 8.5-10.2 [facility] Comment on above: Order Comment: Speci men Type: BLOOD SPECIMEN Ordering Facility: [facility] Address: [address] [place] [address] Performed By: #### 5 5454-3 #### [facility] CLIA [id number] [address] [place] [address] [place] Chloride [Moles/Vol] 106 mmol/L Normal 98-107 [facility] Comment on above: Order Comment: Speci men Type: BLOOD SPECIMEN Ordering Facility: [facility] Address: [address] [place] [address] Performed By: #### 5 5454-3 #### [facility] CLIA [id number] [address] [place] [address] [place] CO2 [Moles/Vol] 23 mmol/L Normal 22-30 [facility] Comment on above: Order Comment: Speci men Type: BLOOD SPECIMEN Ordering Facility: [facility] Address: [address] [place] [address] Performed By: #### 5 5454-3 #### [facility] CLIA [id number] [address] [place] [address] [place] Creatinine [Mass/Vol] 1.19 mg/dL Normal 0.73-1.22 [facility] Comment on above: Order Comment: Anaya cuevas Type: BLOOD SPECIMEN Ordering Facility: [facility] Address: [address] [place] [address] Performed By: #### 5 5454-3 #### [facility] CLIA [id number] [address] [place] [address] [place] Creatinine and Glomerular filtration rate.predicted panel (S/P/Bld) 69 mL/min/1.73m??? Normal >=60 [facility] Comment on above: Order Comment: Anaya cuevas Type: BLOOD SPECIMEN Ordering Facility: [facility] Address: [address] [place] [address] Result Comment: Guera mated Glomerular Filtration Rate (eGFR) is calculated using the 2020 CKD-EPI creatinine equation. This equation utilizes serum creatinine, sex, and age as parameters. The creatinine assay has traceable calibration to isotope dilution-mass spectrometry. Refer to KDIGO guidelines for clinical interpretation. In patients with unstable renal function, e.g. those with acute kidney injury, the eGFR may not accurately reflect actual GFR. Performed By: #### 5 5454-3 #### [facility] CLIA [id number] [address] [place] [address] [place] Glucose [Mass/Vol] 147 mg/dL High 74-99 [facility] Comment on above: Order Comment: Anaya cuevas Type: BLOOD SPECIMEN Ordering Facility: [facility] Address: [address] [place] [address] Result Comment: The [place] Diabetes Association (ADA) provides guidance for cutoff values for fasting glucose and random glucose. The ADA defines fasting as no caloric intake for at least 8 hours. Fasting plasma glucose results between 100 to 125 mg/dL indicate increased risk for diabetes (prediabetes). Fasting plasma glucose results greater than or equal to 126 mg/dL meet the criteria for diagnosis of diabetes. In the absence of unequivocal hyperglycemia, results should be confirmed by repeat testing. In a patient with classic symptoms of hyperglycemia or hyperglycemic crisis, random plasma glucose results greater than or equal to 200 mg/dL meet the criteria for diagnosis of diabetes. Reference: Standards of Medical Care in Diabetes 2016, [place] Diabetes Association. Diabetes Care. 2016.39(Suppl 1). Performed By: #### 5 5454-3 #### [facility] CLIA [id number] [address] [place] [address] [place] Potassium [Moles/Vol] 4.7 mmol/L Normal 3.7-5.1 [facility] Comment on above: Order Comment: Speci men Type: BLOOD SPECIMEN Ordering Facility: [facility] Address: [address] [place] [address] Performed By: #### 5 5454-3 #### [facility] CLIA [id number] [address] [place] [address] [place] Protein [Mass/Vol] 6.5 g/dL Normal 6.3-8.0 [facility] Comment on above: Order Comment: Winteri men Type: BLOOD SPECIMEN Ordering Facility: [facility] Address: [address] [place] [address] Performed By: #### 5 5454-3 #### [facility] CLIA [id number] [address] [place] [address] [place] Sodium [Moles/Vol] 142 mmol/L Normal 136-144 [facility] Comment on above: Order Comment: Speci men Type: BLOOD SPECIMEN Ordering Facility: [facility] Address: [address] [place] [address] Performed By: #### 5 5454-3 #### [facility] CLIA [id number] [address] [place] [address] [place] Urea nitrogen [Mass/Vol] 21 mg/dL Normal 9-24 [facility] Comment on above: Order Comment: Speci men Type: BLOOD SPECIMEN Ordering Facility: [facility] Address: [address] [place] [address] Performed By: #### 5 5454-3 #### [facility] CLIA [id number] [address] [place] [address] [place] HbA1c (Bld)on 06-02-2024 Average glucose Estimated from glycated hemoglobin (Bld) [Mass/Vol] 171 mg/dL Normal [facility] Comment on above: Order Comment: Anaya cuevas Type: BLOOD SPECIMENOrdering Facility: [facility] Address: [address] [place] [address] Result Comment: eAG: (Estimated average glucose) is a calculated value from HgbA1c and is advertising sales representative of the average blood glucose level in the last 2-3 month period. Performed By: #### 5 5454-3 ####[facility] [id number] [address] [place] HbA1c (Bld) [Mass fraction] 7.6 % High 4.3-5.6 [facility] Comment on above: Order Comment: Anaya cuevas Type: BLOOD SPECIMENOrdering Facility: [facility] Address: [address] [place] [address] Result Comment: Amer [place] Diabetes Association guidelines indicate that patients with HgbA1c in the range 5.7-6.4% are at increased risk for development of diabetes, and intervention by lifestyle modification may be beneficial. HgbA1c greater or equal to 6.5% is considered diagnostic of diabetes. Performed By: #### 5 5454-3 ####[facility] [id number] [place] [address] [place] Lipid 1996 panelon 4 Cholesterol [Mass/Vol] 155 mg/dL Normal <200 [facility] Comment on above: Order Comment: Anaya cuevas Type: BLOOD SPECIMEN Ordering Facility: [facility] Address: [address] [place] [address] Result Comment: <200 mg/dL, Desirable 200-239 mg/dL, Borderline high >239 mg/dL, High Performed By: #### 5 5454-3 #### [facility] CLIA [id number] [facility] [address] OF [facility] Cholesterol in HDL [Mass/Vol] 53 mg/dL Normal >39 [facility] Comment on above: Order Comment: Anaya cuevas Type: BLOOD SPECIMEN Ordering Facility: [facility] Address: [address] [place] [address] Result Comment: 40-5 9 mg/dL, Acceptable >59 mg/dL, High: Negative risk factor for coronary heart disease <40 mg/dL, Low: Positive risk factor for coronary heart disease Performed By: #### 5 5454-3 #### [facility] CLIA [id number] [address] [place] [address] Cholesterol in LDL [Mass/Vol] 88 mg/dL Normal <100 [facility] Comment on above: Order Comment: Anaya cuevas Type: BLOOD SPECIMEN Ordering Facility: [facility] Address: [address] [place] [address] Result Comment: <100 mg/dL, Optimal 100-129 mg/dL, Near optimal/above optimal 130-159 mg/dL, Borderline high 160-189 mg/dL, High >189 mg/dL, Very high Secondary prevention optimal LDL Cholesterol levels are recommended to be < 70 mg/dL Performed By: #### 5 5454-3 #### [facility] CLIA [id number] [address] [place] [address] STATES OF [facility] Cholesterol in LDL/Cholesterol in HDL [Mass ratio] 1.66 {ratio} Normal <2.54 [facility] Comment on above: Order Comment: Anaya cuevas Type: BLOOD SPECIMEN Ordering Facility: [facility] Address: [address] [place] [address] Result Comment: Celina howard: 1. National Cholesterol Education Program ATP III Guideline At-A-Glance Quick Desk Reference: National Heart, Lung, and Blood [place]. National Institutes of Health. 2001: NIH Publication No. 01-3305. 2. An International Atherosclerosis Society position paper: global recommendations for the management of dyslipidemia: executive summary, Atherosclerosis. 2014: 232(2):410-413. Performed By: #### 5 5454-3 #### [facility] CLIA [id number] [address] [place] [address] [place] Cholesterol in VLDL [Mass/Vol] 14 mg/dL Normal <30 [facility] Comment on above: Order Comment: Speci men Type: BLOOD SPECIMEN Ordering Facility: [facility] Address: [address] [place] [address] Performed By: #### 5 5454-3 #### [facility] CLIA [id number] [address] [place] [address] [place] Cholesterol non HDL [Mass/Vol] 102 mg/dL Normal <130 [facility] Comment on above: Order Comment: Speci men Type: BLOOD SPECIMEN Ordering Facility: [facility] Address: [address] [place] [address] Result Comment: <130 mg/dL, Optimal 130-159 mg/dL, Near optimal/above optimal 160-189 mg/dL, Borderline high 190-219 mg/dL, High >219 mg/dL, Very high Secondary prevention optimal non HDL Cholesterol levels are recommended to be <100 mg/dL Performed By: #### 5 5454-3 #### [facility] CLIA [id number] [address] [place] [address] [place] Cholesterol.total/Ch olesterol in HDL [Mass ratio] 2.92 {ratio} Normal <5.10 [facility] Comment on above: Order Comment: Speci men Type: BLOOD SPECIMEN Ordering Facility: [facility] Address: [address] [place] [address] Performed By: #### 5 5454-3 #### [facility] CLIA [id number] [address] [place] [address] [place] FASTING TIME 13 hrs Normal [facility] Comment on above: Order Comment: Speci men Type: BLOOD SPECIMEN Ordering Facility: [facility] Address: [address] [place] [address] Performed By: #### 5 5454-3 #### [facility] CLIA [id number] [address] [place] [address] [place] Triglyceride [Mass/Vol] 69 mg/dL Normal <150 [facility] Comment on above: Order Comment: Speci men Type: BLOOD SPECIMEN Ordering Facility: [facility] Address: [address] [place] [address] [place] [address] Result Comment: <150 mg/dL, Normal 150-199 mg/dL, Borderline high 200-499 mg/dL, High >499 mg/dL, Very high Performed By: #### 5 5454-3 #### [facility] CLIA [id number] [address] [place] [address] [place] CNOV[facility] 02-08-2024 [facility] ERICK SERNA ([id number]) 1960 M Date Time Provider Department 02/08/24 4:00 PM KARRIE ROSARIO [facility] During your visit today, we recorded the following information about you: Pulse Respiration Blood pressure Weight 86/minute 16/minute 120/89 76.7 kg Karrie Rosario APRN.[place] MACHINE OPERATOR 02/08/2024 4:30 PM Signed This is a 63 year old male who presents today with: Patient presents with: Follow Up: 3 month follow up with labs HISTORY OF PRESENT ILLNESS: Erick Serna is a 63 year old male. Patient presents with: Follow Up: 3 month follow up with labs 3 month follow up LABS PENDING DM: Reports overall feeling well. Medication side effects: No. Home sugar checks: 130-150's Hypoglycemic spells: No. Watching diet: Trying to work on watching diet but due to work will eat late. Likes sweets. Unexpected weight loss: No. Polyuria, polydipsia: No. Vision Changes: No. Foot lesions or numbness or pain: No. Taking Metformin 1000 mg BID, amaryl 4 mg, 2 tablets daily. At last office visit started on Actos 15 mg daily. A1C went from 8.6 to 7.7. Due for eye exam. Has noticed some tingling in the tip of the feet at the end of the day and then resolves. Noitces in the morning and evening. Sleep: Some difficulty sleeping, over thinking. Refers that he has had some increased stress at work. Denies any increased sadness, anxiety, or SI/Hi. 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 Stopped taking trazodone-reports it was not helping. HTN: Taking Lisinopril 2.5 mg for kidney protection. Migraines: Using Imitrex 100 mg prn. Stable-not taking Imitrex. Lipids: Taking atorvastatin 20 mg daily. Watching diet. Colonoscopy: Past due, would like to address at next visit. PAST MEDICAL HISTORY: PAST MEDICAL HISTORY Diagnosis Date Back pain Essential hypertension Hypercholesteremia Other and unspecified hyperlipidemia Type II or unspecified type diabetes mellitus without mention of complication, not stated as uncontrolled PAST SURGICAL HISTORY Procedure Laterality Date APPENDECTOMY 1990 COLONOSCOPY FLX DX W/COLLJ SPEC WHEN PFRMD Colonoscopy PAST SURGICAL HISTORY OF 05/23/2002 VENTERAL HERNIA REPAIR ALLERGIES Patient has no known allergies. MEDICATIONS Current Outpatient Medications Medication Sig pioglitazone (ACTOS) 15 mg tablet Take 1 tablet by mouth once daily. traZODone (DESYREL) 50 mg tablet Take 1 tablet by mouth daily at bedtime. simvastatin (ZOCOR) 20 mg tablet take 1 tablet by mouth daily at bedtime lisinopril 2.5 mg tablet take 1 tablet by mouth once daily glimepiride (AMARYL) 4 mg tablet TAKE 2 TABLETS BY MOUTH DAILY WITH BREAKFAST metFORMIN (GLUCOPHAGE) 1,000 mg tablet take 1 tablet by mouth twice daily with meals SUMAtriptan (IMITREX) 100 mg tablet Take 1 tablet by mouth as needed for migraine headache (see administration instructions). benzonatate (TESSALON PERLES) 100 mg capsule Take 1 capsule by mouth three times daily as needed for cough. (Patient not taking: Reported on 12/29/2022) blood sugar diagnostic (BLOOD GLUCOSE TEST) test strip Test blood sugar(s) 1 times daily. Dx: Type 2 DM - Controlled E11.9 Insulin: No aspirin, enteric coated (ASPIRIN LOW DOSE) 81 mg EC tablet Take 1 tablet by mouth once daily. No current facility-administered medications for this visit. FAMILY HISTORY Problem Relation Age of Onset Diabetes Father No Ocular Disease No Family History Social History Tobacco Use Smoking status: Never Smokeless tobacco: Never Vaping Use Vaping Use: Never used Substance Use Topics Alcohol use: No Drug use: No REVIEW OF SYSTEMS GENERAL: No weight loss, malaise or fevers/chills HEENT: Negative for frequent or significant headaches, No changes in hearing or vision. NECK: Negative for lumps, goiter, pain and significant neck swelling RESPIRATORY: Negative for cough, hemoptysis, wheezing, dyspnea or shortness of breath CARDIOVASCULAR: Negative for chest pain, leg swelling, orthopnea, or palpitations GI: No nausea, vomiting, or diarrhea/constipation. No hematochezia/melena. No heartburn or reflux symptoms. : No history of dysuria, frequency or incontinence MUSCULOSKELETAL: Negative for joint pain or swelling. SKIN: Negative for lesions, rash, and itching ENDOCRINE: Negative for cold or heat intolerance, polyuria, polydipsia and goiter NEURO: No history of headaches, syncope, paralysis, seizures or tremors MOOD: Negative for depression, anxiety, or suicidal ideation. EXAM: BP 120/89 Pulse 86 Resp 16 Wt 76.7 kg (169 lb) SpO2 97% BMI 23.57 kg/m? PHYSICAL EXAM: General Appearance: Well appearing, alert, in no acute distress, well-hydrated, well nourished.. Skin: Skin color, texture, turgor normal, no suspiciou (more content not included)... Normal [facility] Comprehensive metabolic 2000 panelon 02-06-2024 Albumin [Mass/Vol] 4.2 g/dL Normal 3.9-4.9 [facility] Comment on above: Order Comment: Speci men Type: BLOOD SPECIMEN Ordering Facility: [facility] Address: [address] [place] [address] Performed By: #### 5 5454-3 #### [facility] CLIA [id number] [address] [place] [address] [place] ALP [Catalytic activity/Vol] 68 U/L Normal 38-113 [facility] Comment on above: Order Comment: Speci men Type: BLOOD SPECIMEN Ordering Facility: [facility] Address: [address] [place] [address] Performed By: #### 5 5454-3 #### [facility] CLIA [id number] [address] [place] [address] [place] ALT [Catalytic activity/Vol] 15 U/L Normal 10-54 [facility] Comment on above: Order Comment: Speci men Type: BLOOD SPECIMEN Ordering Facility: [facility] Address: [address] [place] [address] Performed By: #### 5 5454-3 #### [facility] CLIA [id number] [address] [place] [address] [place] Anion gap [Moles/Vol] 9 mmol/L Normal 8-15 [facility] Comment on above: Order Comment: Speci men Type: BLOOD SPECIMEN Ordering Facility: [facility] Address: [address] [place] [address] Performed By: #### 5 5454-3 #### [facility] CLIA [id number] [address] [place] [address] [place] AST [Catalytic activity/Vol] 19 U/L Normal 14-40 [facility] Comment on above: Order Comment: Speci men Type: BLOOD SPECIMEN Ordering Facility: [facility] Address: [address] [place] [address] Performed By: #### 5 5454-3 #### [facility] CLIA [id number] [address] [place] [address] [place] Bilirubin [Mass/Vol] 1.4 mg/dL High 0.2-1.3 [facility] Comment on above: Order Comment: Speci men Type: BLOOD SPECIMEN Ordering Facility: [facility] Address: [address] [place] [address] Performed By: #### 5 5454-3 #### [facility] CLIA [id number] [address] [place] [address] [place] Calcium [Mass/Vol] 7.9 mg/dL Low 8.5-10.2 [facility] Comment on above: Order Comment: Speci men Type: BLOOD SPECIMEN Ordering Facility: [facility] Address: [address] [place] [address] Performed By: #### 5 5454-3 #### [facility] CLIA [id number] [address] [place] [address] [place] Chloride [Moles/Vol] 104 mmol/L Normal 98-107 [facility] Comment on above: Order Comment: Speci men Type: BLOOD SPECIMEN Ordering Facility: [facility] Address: [address] [place] [address] Performed By: #### 5 5454-3 #### [facility] CLIA [id number] [address] [place] [address] [place] CO2 [Moles/Vol] 25 mmol/L Normal 22-30 [facility] Comment on above: Order Comment: Speci men Type: BLOOD SPECIMEN Ordering Facility: [facility] Address: [address] [place] [address] Performed By: #### 5 5454-3 #### [facility] CLIA [id number] [address] [place] [address] [place] Creatinine [Mass/Vol] 1.20 mg/dL Normal 0.73-1.22 [facility] Comment on above: Order Comment: Speci men Type: BLOOD SPECIMEN Ordering Facility: [facility] Address: [address] [place] [address] Performed By: #### 5 5454-3 #### [facility] CLIA [id number] [address] [place] [address] [place] Creatinine and Glomerular filtration rate.predicted panel (S/P/Bld) 68 mL/min/1.73m??? Normal >=60 [facility] Comment on above: Order Comment: Anaya cuevas Type: BLOOD SPECIMEN Ordering Facility: [facility] Address: [address] [place] [address] Result Comment: Guera mated Glomerular Filtration Rate (eGFR) is calculated using the 2020 CKD-EPI creatinine equation. This equation utilizes serum creatinine, sex, and age as parameters. The creatinine assay has traceable calibration to isotope dilution-mass spectrometry. Refer to KDIGO guidelines for clinical interpretation. In patients with unstable renal function, e.g. those with acute kidney injury, the eGFR may not accurately reflect actual GFR. Performed By: #### 5 5454-3 #### [facility] CLIA [id number] [address] [place] [address] [place] Glucose [Mass/Vol] 158 mg/dL High 74-99 [facility] Comment on above: Order Comment: Anaya cuevas Type: BLOOD SPECIMEN Ordering Facility: [facility] Address: [address] [place] [address] Result Comment: The [place] Diabetes Association (ADA) provides guidance for cutoff values for fasting glucose and random glucose. The ADA defines fasting as no caloric intake for at least 8 hours. Fasting plasma glucose results between 100 to 125 mg/dL indicate increased risk for diabetes (prediabetes). Fasting plasma glucose results greater than or equal to 126 mg/dL meet the criteria for diagnosis of diabetes. In the absence of unequivocal hyperglycemia, results should be confirmed by repeat testing. In a patient with classic symptoms of hyperglycemia or hyperglycemic crisis, random plasma glucose results greater than or equal to 200 mg/dL meet the criteria for diagnosis of diabetes. Reference: Standards of Medical Care in Diabetes 2016, [place] Diabetes Association. Diabetes Care. 2016.39(Suppl 1). Performed By: #### 5 5454-3 #### [facility] CLIA [id number] [address] [place] [address] [place] Potassium [Moles/Vol] 4.8 mmol/L Normal 3.7-5.1 [facility] Comment on above: Order Comment: Speci men Type: BLOOD SPECIMEN Ordering Facility: [facility] Address: [address] [place] [address] Performed By: #### 5 5454-3 #### [facility] CLIA [id number] [address] [place] [address] [place] Protein [Mass/Vol] 6.5 g/dL Normal 6.3-8.0 [facility] Comment on above: Order Comment: Speci men Type: BLOOD SPECIMEN Ordering Facility: [facility] Address: [address] [place] [address] Performed By: #### 5 5454-3 #### [facility] CLIA [id number] [address] [place] [address] [place] Sodium [Moles/Vol] 138 mmol/L Normal 136-144 [facility] Comment on above: Order Comment: Speci men Type: BLOOD SPECIMEN Ordering Facility: [facility] Address: [address] [place] [address] Performed By: #### 5 5454-3 #### [facility] CLIA [id number] [address] [place] [address] [place] Urea nitrogen [Mass/Vol] 27 mg/dL High 9-24 [facility] Comment on above: Order Comment: Speci men Type: BLOOD SPECIMEN Ordering Facility: [facility] Address: [address] [place] [address] Performed By: #### 5 5454-3 #### [facility] CLIA [id number] [address] [place] [address] [place] HbA1c (Bld)on 02-06-2024 Average glucose Estimated from glycated hemoglobin (Bld) [Mass/Vol] 174 mg/dL Normal [facility] Comment on above: Order Comment: Speci men Type: BLOOD SPECIMEN Ordering Facility: [facility] Address: [address], [place] [address] Result Comment: eAG: (Estimated average glucose) is a calculated value from HgbA1c and is advertising sales representative of the average blood glucose level in the last 2-3 month period. Performed By: #### 5 5454-3 #### [facility] CLIA [id number] [address] [place] [address] [place] HbA1c (Bld) [Mass fraction] 7.7 % High 4.3-5.6 [facility] Comment on above: Order Comment: Speci men Type: BLOOD SPECIMEN Ordering Facility: [facility] Address: [address] [place] [address] Result Comment: [place] Diabetes Association guidelines indicate that patients with HgbA1c in the range 5.7-6.4% are at increased risk for development of diabetes, and intervention by lifestyle modification may be beneficial. HgbA1c greater or equal to 6.5% is considered diagnostic of diabetes. Performed By: #### 5 5454-3 #### [facility] CLIA [id number] [address] [place] [address] OF [facility] CNOVon 11-09-2023 [facility] ERICK SERNA ([id number]) 1960 M Date Time Provider Department 11/09/23 4:00 PM [facility]AR[facility]E [facility]AR[facility] During your visit today, we recorded the following information about you: Pulse Respiration Blood pressure Weight 82/minute 16/minute 110/70 79.8 kg Karrie Rosario APRN.[place] MACHINE OPERATOR 11/09/2023 3:42 PM Addendum Start Actos 15 mg daily Continue to take all medication as prescribed. Work on eating a low carb diet. Increase protein, veggies, and stay active. May try Trazodone 1/2 tab-1 tablet 30 minutes prior to bed. Stay hydrated Get repeat labs in 3 months prior to next visit. Karrie Rosario APRN.JULIO 11/09/2023 5:39 PM Signed This is a 62 year old male who presents today with: Patient presents with: Follow Up: 3 month follow up HISTORY OF PRESENT ILLNESS: Erick Serna is a 62 year old male. Patient presents with: Follow Up: 3 month follow up 3 month follow up DM: Reports overall feeling well. Medication side effects: No. Home sugar checks: Has not been checking Hypoglycemic spells: No. Watching diet: Trying to work on watching diet but due to work will eat late. Likes sweets. Unexpected weight loss: No. Polyuria, polydipsia: No. Vision Changes: No. Foot lesions or numbness or pain: No. Taking Metformin 1000 mg BID, amaryl 4 mg, 2 tablets daily. A1C went from 7.3 to 8.6 Sleep: Some difficulty sleeping, over thinking. Refers that he has had some increased stress at work. Denies any increased sadness, anxiety, or SI/Hi. Has tried Tylenol PM but wasn't sure if he could take this care home. HTN: Taking Lisinopril 2.5 mg for kidney protection. Migraines: Using Imitrex 100 mg prn. Stable. Lipids: Taking atorvastatin 20 mg daily. Watching diet. PAST MEDICAL HISTORY: PAST MEDICAL HISTORY Diagnosis Date Back pain Essential hypertension Hypercholesteremia Other and unspecified hyperlipidemia Type II or unspecified type diabetes mellitus without mention of complication, not stated as uncontrolled PAST SURGICAL HISTORY Procedure Laterality Date APPENDECTOMY 1990 COLONOSCOPY FLX DX W/COLLJ SPEC WHEN PFRMD Colonoscopy PAST SURGICAL HISTORY OF 05/23/2002 VENTERAL HERNIA REPAIR ALLERGIES Patient has no known allergies. MEDICATIONS Current Outpatient Medications Medication Sig simvastatin (ZOCOR) 20 mg tablet take 1 tablet by mouth daily at bedtime lisinopril 2.5 mg tablet take 1 tablet by mouth once daily glimepiride (AMARYL) 4 mg tablet TAKE 2 TABLETS BY MOUTH DAILY WITH BREAKFAST metFORMIN (GLUCOPHAGE) 1,000 mg tablet take 1 tablet by mouth twice daily with meals SUMAtriptan (IMITREX) 100 mg tablet Take 1 tablet by mouth as needed for migraine headache (see administration instructions). benzonatate (TESSALON PERLES) 100 mg capsule Take 1 capsule by mouth three times daily as needed for cough. (Patient not taking: Reported on 12/29/2022) blood sugar diagnostic (BLOOD GLUCOSE TEST) test strip Test blood sugar(s) 1 times daily. Dx: Type 2 DM - Controlled E11.9 Insulin: No aspirin, enteric coated (ASPIRIN LOW DOSE) 81 mg EC tablet Take 1 tablet by mouth once daily. No current facility-administered medications for this visit. FAMILY HISTORY Problem Relation Age of Onset Diabetes Father No Ocular Disease No Family History Social History Tobacco Use Smoking status: Never Smokeless tobacco: Never Vaping Use Vaping Use: Never used Substance Use Topics Alcohol use: No Drug use: No REVIEW OF SYSTEMS GENERAL: No weight loss, malaise or fevers/chills HEENT: Negative for frequent or significant headaches, No changes in hearing or vision. NECK: Negative for lumps, goiter, pain and significant neck swelling RESPIRATORY: Negative for cough, hemoptysis, wheezing, dyspnea or shortness of breath CARDIOVASCULAR: Negative for chest pain, leg swelling, orthopnea, or palpitations GI: No nausea, vomiting, or diarrhea/constipation. No hematochezia/melena. No heartburn or reflux symptoms. : No history of dysuria, frequency or incontinence MUSCULOSKELETAL: Negative for joint pain or swelling. SKIN: Negative for lesions, rash, and itching ENDOCRINE: Negative for cold or heat intolerance, polyuria, polydipsia and goiter NEURO: No history of headaches, syncope, paralysis, seizures or tremors MOOD: Negative for depression, anxiety, or suicidal ideation. + Difficulty Sleeping EXAM: BP 110/70 Pulse 82 Resp 16 Wt 79.8 kg (176 lb) SpO2 97% BMI 24.55 kg/m? PHYSICAL EXAM: General Appearance: Well appearing, alert, in no acute distress, well-hydrated, well nourished. Skin: Skin color, texture, turgor normal, no suspicious rashes or lesions. Head: Normocephalic, no masses, lesions, tenderness or abnormalities. Eyes: Anicteric sclera. Extraocular movements are intact. Lungs: Lungs clear to auscultation. No wheezing, rho (more content not included)... Normal [facility] Comprehensive metabolic 2000 panelon 11-05-2023 Albumin [Mass/Vol] 4.1 g/dL Normal 3.9-4.9 [facility] Comment on above: Order Comment: Speci men Type: BLOOD SPECIMEN Ordering Facility: [facility] Address: [address] [place] [id number] Performed By: #### 5 5454-3 #### [facility] CLIA [id number] [address] [place] [address] [place] ALP [Catalytic activity/Vol] 66 U/L Normal 38-113 [facility] Comment on above: Order Comment: Speci men Type: BLOOD SPECIMEN Ordering Facility: [facility] Address: [address] [place], [place] [address] Performed By: #### 5 5454-3 #### [facility] CLIA [id number] [address] [place] [address] [place] ALT [Catalytic activity/Vol] 12 U/L Normal 10-54 [facility] Comment on above: Order Comment: Speci men Type: BLOOD SPECIMEN Ordering Facility: [facility] Address: [address] [place] [address] Performed By: #### 5 5454-3 #### [facility] CLIA [id number] [address] [place] [address] [place] Anion gap [Moles/Vol] 11 mmol/L Normal 9-18 [facility] [facility] Comment on above: Order Comment: Speci men Type: BLOOD SPECIMEN Ordering Facility: [facility] Address: [address] [id number] Performed By: #### 5 5454-3 #### [facility] CLIA [id number] [address] [id number] [place] AST [Catalytic activity/Vol] 16 U/L Normal 14-40 [facility] Comment on above: Order Comment: Speci men Type: BLOOD SPECIMEN Ordering Facility: [facility] Address: [address] [place], [place] [id number] Performed By: #### 5 5454-3 #### [facility] CLIA [id number] [address] [place] [address] [place] Bilirubin [Mass/Vol] 1.3 mg/dL Normal 0.2-1.3 [facility] Comment on above: Order Comment: Speci men Type: BLOOD SPECIMEN Ordering Facility: [facility] Address: [address] [place] [address] Performed By: #### 5 5454-3 #### [facility] CLIA [id number] [address] [place] [address] [place] Calcium [Mass/Vol] 8.6 mg/dL Normal 8.5-10.2 [facility] Comment on above: Order Comment: Speci men Type: BLOOD SPECIMEN Ordering Facility: [facility] Address: [address] [place] [address] Performed By: #### 5 5454-3 #### [facility] CLIA [id number] [address] [place] [address] [place] Chloride [Moles/Vol] 102 mmol/L Normal 97-105 [facility] Comment on above: Order Comment: Speci men Type: BLOOD SPECIMEN Ordering Facility: [facility] Address: [address] [place] [address] Performed By: #### 5 5454-3 #### [facility] CLIA [id number] [address] [place] [address] [place] CO2 [Moles/Vol] 25 mmol/L Normal 22-30 [facility] Comment on above: Order Comment: Speci men Type: BLOOD SPECIMEN Ordering Facility: [facility] Address: [address] [place] [address] Performed By: #### 5 5454-3 #### [facility] CLIA [id number] [address] [place] [address] [place] Creatinine [Mass/Vol] 1.06 mg/dL Normal 0.73-1.22 [facility] Comment on above: Order Comment: Speci men Type: BLOOD SPECIMEN Ordering Facility: [facility] Address: [address] [place] [address] Performed By: #### 5 5454-3 #### [facility] CLIA [id number] [address] [place] [address] [place] Creatinine and Glomerular filtration rate.predicted panel (S/P/Bld) 79 mL/min/1.73m??? Normal >=60 [facility] Comment on above: Order Comment: Anaya cuevas Type: BLOOD SPECIMEN Ordering Facility: [facility] Address: [address] [place] [address] Result Comment: Guera mated Glomerular Filtration Rate (eGFR) is calculated using the 2020 CKD-EPI creatinine equation. This equation utilizes serum creatinine, sex, and age as parameters. The creatinine assay has traceable calibration to isotope dilution-mass spectrometry. Refer to KDIGO guidelines for clinical interpretation. In patients with unstable renal function, e.g. those with acute kidney injury, the eGFR may not accurately reflect actual GFR. Performed By: #### 5 5454-3 #### [facility] CLIA [id number] [address] [place] [address] [place] Glucose [Mass/Vol] 198 mg/dL High 74-99 [facility] Comment on above: Order Comment: Anaya cuevas Type: BLOOD SPECIMEN Ordering Facility: [facility] Address: [address] [place] [address] Result Comment: The [place] Diabetes Association (ADA) provides guidance for cutoff values for fasting glucose and random glucose. The ADA defines fasting as no caloric intake for at least 8 hours. Fasting plasma glucose results between 100 to 125 mg/dL indicate increased risk for diabetes (prediabetes). Fasting plasma glucose results greater than or equal to 126 mg/dL meet the criteria for diagnosis of diabetes. In the absence of unequivocal hyperglycemia, results should be confirmed by repeat testing. In a patient with classic symptoms of hyperglycemia or hyperglycemic crisis, random plasma glucose results greater than or equal to 200 mg/dL meet the criteria for diagnosis of diabetes. Reference: Standards of Medical Care in Diabetes 2016, [place] Diabetes Association. Diabetes Care. 2016.39(Suppl 1). Performed By: #### 5 5454-3 #### [facility] CLIA [id number] [address] [id number] [place] Potassium [Moles/Vol] 5.0 mmol/L Normal 3.7-5.1 [facility] Comment on above: Order Comment: Speci men Type: BLOOD SPECIMEN Ordering Facility: [facility] Address: [address] [place] [address] Performed By: #### 5 5454-3 #### [facility] CLIA [id number] [address] [place] [address] [place] Protein [Mass/Vol] 6.5 g/dL Normal 6.3-8.0 [facility] Comment on above: Order Comment: Speci men Type: BLOOD SPECIMEN Ordering Facility: [facility] Address: [address] [place] [address] Performed By: #### 5 5454-3 #### [facility] CLIA [id number] [address] [place] [address] [place] Sodium [Moles/Vol] 138 mmol/L Normal 136-144 [facility] Comment on above: Order Comment: Speci men Type: BLOOD SPECIMEN Ordering Facility: [facility] Address: [address] [place] [address] Performed By: #### 5 5454-3 #### [facility] CLIA [id number] [address] [place] [address] [place] Urea nitrogen [Mass/Vol] 19 mg/dL Normal 9-24 [facility] Comment on above: Order Comment: Speci men Type: BLOOD SPECIMEN Ordering Facility: [facility] Address: [address] [place] [address] Performed By: #### 5 5454-3 #### [facility] CLIA [id number] [address] [place], [place] [id number] [place] HbA1c (Bld)on 11-05-2023 Average glucose Estimated from glycated hemoglobin (Bld) [Mass/Vol] 200 mg/dL Normal [facility] Comment on above: Order Comment: Anaya cuevas Type: BLOOD SPECIMEN Ordering Facility: [facility] Address: [address] [place] [address] Result Comment: eAG: (Estimated average glucose) is a calculated value from HgbA1c and is advertising sales representative of the average blood glucose level in the last 2-3 month period. Performed By: #### 5 5454-3 #### [facility] CLIA [id number] [address] [place] [address] [place] HbA1c (Bld) [Mass fraction] 8.6 % High 4.3-5.6 [facility] Comment on above: Order Comment: Anaya cuevas Type: BLOOD SPECIMEN Ordering Facility: [facility] Address: [address] [place] [address] Result Comment: [place] Diabetes Association guidelines indicate that patients with HgbA1c in the range 5.7-6.4% are at increased risk for development of diabetes, and intervention by lifestyle modification may be beneficial. HgbA1c greater or equal to 6.5% is considered diagnostic of diabetes. Performed By: #### 5 5454-3 #### [facility] CLIA [id number] [address] [place] [address] [place] Lipid 1996 panelon 4 Cholesterol [Mass/Vol] 165 mg/dL Normal <200 [facility] Comment on above: Order Comment: Anaya cuevas Type: BLOOD SPECIMEN Ordering Facility: [facility] Address: [address] [place] [address] Result Comment: <200 mg/dL, Desirable 200-239 mg/dL, Borderline high >239 mg/dL, High Performed By: #### 5 5454-3 #### [facility] CLIA [id number] [address] [place] [address] [place] Cholesterol in HDL [Mass/Vol] 51 mg/dL Normal >39 [facility] Comment on above: Order Comment: Anaya cuevas Type: BLOOD SPECIMEN Ordering Facility: [facility] Address: [address] [place] [address] Result Comment: 40-5 9 mg/dL, Acceptable >59 mg/dL, High: Negative risk factor for coronary heart disease <40 mg/dL, Low: Positive risk factor for coronary heart disease Performed By: #### 5 5454-3 #### [facility] CLIA [id number] [address] [place] [address] [place] Cholesterol in LDL [Mass/Vol] 96 mg/dL Normal <100 [facility] Comment on above: Order Comment: Anaya cuevas Type: BLOOD SPECIMEN Ordering Facility: [facility] Address: [address] [place] [address] Result Comment: <100 mg/dL, Optimal 100-129 mg/dL, Near optimal/above optimal 130-159 mg/dL, Borderline high 160-189 mg/dL, High >189 mg/dL, Very high Secondary prevention optimal LDL Cholesterol levels are recommended to be < 70 mg/dL Performed By: #### 5 5454-3 #### [facility] CLIA [id number] [address] [place] [address] [place] Cholesterol in LDL/Cholesterol in HDL [Mass ratio] 1.88 {ratio} Normal <2.54 [facility] Comment on above: Order Comment: Anaya cuevas Type: BLOOD SPECIMEN Ordering Facility: [facility] Address: [address] [place] [address] Result Comment: Refgrey howard: 1. National Cholesterol Education Program ATP III Guideline At-A-Glance Quick Desk Reference: National Heart, Lung, and Blood [place]. National Institutes of Health. 2001: NIH Publication No. 01-3305. 2. An International Atherosclerosis Society position paper: global recommendations for the management of dyslipidemia: executive summary, Atherosclerosis. 2014: 232(2):410-413. Performed By: #### 5 5454-3 #### [facility] CLIA [id number] [address] [place] [address] [place] Cholesterol in VLDL [Mass/Vol] 18 mg/dL Normal <30 [facility] Comment on above: Order Comment: Speci men Type: BLOOD SPECIMEN Ordering Facility: [facility] Address: [address] [place] [address] Performed By: #### 5 5454-3 #### [facility] CLIA [id number] [address] [place] [address] [place] Cholesterol non HDL [Mass/Vol] 114 mg/dL Normal <130 [facility] Comment on above: Order Comment: Speci men Type: BLOOD SPECIMEN Ordering Facility: [facility] Address: [address] [place] [address] Result Comment: <130 mg/dL, Optimal 130-159 mg/dL, Near optimal/above optimal 160-189 mg/dL, Borderline high 190-219 mg/dL, High >219 mg/dL, Very high Secondary prevention optimal non HDL Cholesterol levels are recommended to be <100 mg/dL Performed By: #### 5 5454-3 #### [facility] CLIA [id number] [address] [place] [address] [place] Cholesterol.total/Ch olesterol in HDL [Mass ratio] 3.24 {ratio} Normal <5.10 [facility] Comment on above: Order Comment: Speci men Type: BLOOD SPECIMEN Ordering Facility: [facility] Address: [address] [place] [address] Performed By: #### 5 5454-3 #### [facility] CLIA [id number] [address] [place] [address] [place] FASTING TIME 12 hrs Normal [facility] Comment on above: Order Comment: Speci men Type: BLOOD SPECIMEN Ordering Facility: [facility] Address: [address] [place], [place] [address] Performed By: #### 5 5454-3 #### [facility] CLIA [id number] [address] [place] [address] [place] Triglyceride [Mass/Vol] 90 mg/dL Normal <150 [facility] Comment on above: Order Comment: Speci men Type: BLOOD SPECIMEN Ordering Facility: [facility] Address: [address] [place], [place] [id number] Result Comment: <150 mg/dL, Normal 150-199 mg/dL, Borderline high 200-499 mg/dL, High >499 mg/dL, Very high Performed By: #### 5 5454-3 #### [facility] CLIA [id number] [address] [place] [address] [id number] [place] [address] [place] XR CHEST 2V FRONTAL/LATon [facility] XR Chest PA and Lateralon IMPRESSION: No acute radiographic abnormality. Cripple Worker: PSCB Transcribe Date/Time: Oct 12 2022 8:20A Dictated by : MAGGI RIVAS MD This examination was interpreted and the report reviewed and electronically signed by: MAGGI RIVAS MD on Oct 12 2022 8:21AM [facility] DIVISION OF RADIOLOGY * * *Final Report* * * DATE OF EXAM: Oct 12 2022 8:17AM WOX [id number] - XR CHEST 2V FRONTAL/LAT / PROCEDURE REASON: Acute cough * * * * Physician Interpretation * * * * EXAMINATION: CHEST RADIOGRAPH (2 VIEW FRONTAL & LATERAL) CLINICAL HISTORY: Acute cough MQ: XC2_6 EXAM DATE/TIME: 10/12/2022 8:17 AM COMPARISON: No relevant prior studies available. RESULT: Lines, tubes, and devices: None. Lungs and pleura: No consolidation. No lung mass. No pleural effusion. No pneumothorax. Cardiomediastinal silhouette: Normal cardiomediastinal silhouette. Bones and soft tissues: Unremarkable. DIVISION OF RADIOLOGY Provider, [facility] - 10/12/2022 * * *Final Report* * * DATE OF EXAM: Oct 12 2022 8:17AM WOX [id number] - XR CHEST 2V FRONTAL/LAT / PROCEDURE REASON: Acute cough * * * * Physician Interpretation * * * * EXAMINATION: CHEST RADIOGRAPH (2 VIEW FRONTAL & LATERAL) CLINICAL HISTORY: Acute cough MQ: XC2_6 EXAM DATE/TIME: 10/12/2022 8:17 AM COMPARISON: No relevant prior studies available. RESULT: Lines, tubes, and devices: None. Lungs and pleura: No consolidation. No lung mass. No pleural effusion. No pneumothorax. Cardiomediastinal silhouette: Normal cardiomediastinal silhouette. Bones and soft tissues: Unremarkable. IMPRESSION IMPRESSION: No acute radiographic abnormality. Cripple Worker: SABRINA Transcribe Date/Time: Oct 12 2022 8:20A Dictated by : MAGGI RIVAS MD This examination was interpreted and the report reviewed and electronically signed by: MAGGI RIVAS MD on Oct 12 2022 8:21AM EST [facility] Radiology Study observation (narrative) [facility] XR Chest PA and LateralOrder ed By: [facility] Provider on 10-12-2022 [facility] XR ELBOW SPECIAL VIEWS AP/LA T/OTHER RIGHTon 01-09-2022 [facility] XR Elbow - right AP and Late ral and obliqueon 01-09-2022 IMPRESSION: Negative Cripple Worker: SABRINA Transcribe Date/Time: Jan 09 2022 9:11A Dictated by : FIDEL DENISE MD This examination was interpreted and the report reviewed and electronically signed by: FIDEL DENISE MD on Jan 09 2022 9:11AM EST [facility]_DO_NOT_USE _DIVISION OF RADIOLOGY * * *Final Report* * * DATE OF EXAM: Jan 09 2022 8:58AM WOX [id number] - XR ELBOW 3V AP/LAT/OTHER RT / PROCEDURE REASON: Right elbow pain * * * * Physician Interpretation * * * * PROCEDURE: Right elbow INDICATION: Right elbow pain .Pt. states anterior Rt elbow pain for 3 days. No injury. TECHNIQUE: XR ELBOW 3V AP/LAT/OTHER RT COMPARISON: None FINDINGS: No fractures or dislocations are seen. No significant degenerative or arthritic change is evident. There is no evidence for joint effusion or significant soft tissue swelling. [facility]_DO_NOT_USE _DIVISION OF RADIOLOGY Provider, [facility] - 01/09/2022 * * *Final Report* * * DATE OF EXAM: Jan 09 2022 8:58AM WOX [id number] - XR ELBOW 3V AP/LAT/OTHER RT / PROCEDURE REASON: Right elbow pain * * * * Physician Interpretation * * * * PROCEDURE: Right elbow INDICATION: Right elbow pain .Pt. states anterior Rt elbow pain for 3 days. No injury. TECHNIQUE: XR ELBOW 3V AP/LAT/OTHER RT COMPARISON: None FINDINGS: No fractures or dislocations are seen. No significant degenerative or arthritic change is evident. There is no evidence for joint effusion or significant soft tissue swelling. IMPRESSION IMPRESSION: Negative Cripple Worker: SABRINA Transcribe Date/Time: Jan 09 2022 9:11A Dictated by : FIDEL DENISE MD This examination was interpreted and the report reviewed and electronically signed by: FIDEL DENISE MD on Jan 09 2022 9:11AM EST [facility] Radiology Study observation (narrative) [facility] XR Elbow - right AP and Late ral and obliqueOrdered By: [facility] Provider on 01-09-2022 [facility] Vital Signs Date Time Vital Sign Value Performing Clinician Facility 10-24-2024 14:54-0400 Body mass index (BMI) [Ratio] 23.21 kg/m2 Karrie Rosario APRN.[place] MACHINE OPERATOR Work Phone: [facility] 10-24-2024 14:54-0400 Body weight 75.5 kg Karrie Rosario APRN.[place] MACHINE OPERATOR Work Phone: [facility] 10-24-2024 14:54-0400 Diastolic blood pressure 88 mm[Hg] Karrie Rosario APRN.[place] MACHINE OPERATOR Work Phone: [facility] 10-24-2024 14:54-0400 Heart rate 98 /min Karrie Rosario APRN.[place] MACHINE OPERATOR Work Phone: [facility] 10-24-2024 14:54-0400 Respiratory rate 16 /min Karrie Rosario APRN.[place] MACHINE OPERATOR Work Phone: [facility] 10-24-2024 14:54-0400 SaO2% (BldA) [Mass fraction] 98 % Karrie Rosario APRN.[place] MACHINE OPERATOR Work Phone: [facility] 10-24-2024 14:54-0400 Systolic blood pressure 130 mm[Hg] Karrie Rosario APRN.[place] MACHINE OPERATOR Work Phone: [facility] 06-06-2024 17:41-0500 Body mass index (BMI) [Ratio] 24.01 kg/m2 Karrie Tannhof SLIP TENDER.[place] MACHINE OPERATOR Work Phone: [facility] 06-06-2024 17:41-0500 Body weight 78.1 kg Karrie Tannhof SLIP TENDER.[place] MACHINE OPERATOR Work Phone: [facility] 06-06-2024 17:41-0500 Diastolic blood pressure 80 mm[Hg] Karrie Tannhof SLIP TENDER.[place] MACHINE OPERATOR Work Phone: [facility] 06-06-2024 17:41-0500 Heart rate 84 /min Karrie Tannhof SLIP TENDER.[place] MACHINE OPERATOR Work Phone: [facility] 06-06-2024 17:41-0500 Respiratory rate 16 /min Karrie Tannhof SLIP TENDER.[place] MACHINE OPERATOR Work Phone: [facility] 06-06-2024 17:41-0500 SaO2% (BldA) [Mass fraction] 96 % Karrie Tannhof SLIP TENDER.[place] MACHINE OPERATOR Work Phone: [facility] 06-06-2024 17:41-0500 Systolic blood pressure 128 mm[Hg] Karrie Tannhof SLIP TENDER.[place] MACHINE OPERATOR Work Phone: [facility] 02-08-2024 15:52-0400 Body mass index (BMI) [Ratio] 23.57 kg/m2 Karrie Tannhof SLIP TENDER.[place] MACHINE OPERATOR Work Phone: [facility] 02-08-2024 15:52-0400 Body weight 76.66 kg Karrie Tannhof SLIP TENDER.[place] MACHINE OPERATOR Work Phone: [facility] 02-08-2024 15:52-0400 Diastolic blood pressure 89 mm[Hg] Karrie Tannhof SLIP TENDER.[place] MACHINE OPERATOR Work Phone: [facility] 02-08-2024 15:52-0400 Heart rate 86 /min Karrie Tannhof SLIP TENDER.[place] MACHINE OPERATOR Work Phone: [facility] 02-08-2024 15:52-0400 Respiratory rate 16 /min Karrie Tannhof SLIP TENDER.[place] MACHINE OPERATOR Work Phone: [facility] 02-08-2024 15:52-0400 SaO2% (BldA) [Mass fraction] 97 % Karrie Tannhof SLIP TENDER.[place] MACHINE OPERATOR Work Phone: [facility] 02-08-2024 15:52-0400 Systolic blood pressure 120 mm[Hg] Karrie Tannhof SLIP TENDER.[place] MACHINE OPERATOR Work Phone: [facility] 11-09-2023 15:27-0400 Body weight 79.83 kg Karrie Tannhof SLIP TENDER.[place] MACHINE OPERATOR Work Phone: [facility] 11-09-2023 15:27-0400 Diastolic blood pressure 70 mm[Hg] Karrie Tannhof SLIP TENDER.[place] MACHINE OPERATOR Work Phone: [facility] 11-09-2023 15:27-0400 Heart rate 82 /min Karrie Tannhof SLIP TENDER.[place] MACHINE OPERATOR Work Phone: [facility] 11-09-2023 15:27-0400 Respiratory rate 16 /min Karrie Tannhof SLIP TENDER.[place] MACHINE OPERATOR Work Phone: [facility] 11-09-2023 15:27-0400 SaO2% (BldA) [Mass fraction] 97 % Karrie Tannhof SLIP TENDER.[place] MACHINE OPERATOR Work Phone: [facility] 11-09-2023 15:27-0400 Systolic blood pressure 110 mm[Hg] Karrie Tannhof SLIP TENDER.[place] MACHINE OPERATOR Work Phone: [facility] 03-30-2023 17:51-0400 Body weight 77.11 kg Karrie Tannhof SLIP TENDER.[place] MACHINE OPERATOR Work Phone: [facility] 03-30-2023 17:51-0400 Diastolic blood pressure 88 mm[Hg] Karrie Tannhof SLIP TENDER.[place] MACHINE OPERATOR Work Phone: [facility] 03-30-2023 17:51-0400 Heart rate 89 /min Karrie Tannhof SLIP TENDER.[place] MACHINE OPERATOR Work Phone: [facility] 03-30-2023 17:51-0400 Respiratory rate 16 /min Karrie Tannhof SLIP TENDER.[place] MACHINE OPERATOR Work Phone: [facility] 03-30-2023 17:51-0400 SaO2% (BldA) [Mass fraction] 97 % Karrie Tannhof SLIP TENDER.[place] MACHINE OPERATOR Work Phone: [facility] 03-30-2023 17:51-0400 Systolic blood pressure 124 mm[Hg] Karrie Tannhof SLIP TENDER.[place] MACHINE OPERATOR Work Phone: [facility] 12-29-2022 17:44-0400 Body weight 75.75 kg Karrie Tannhof SLIP TENDER.[place] MACHINE OPERATOR Work Phone: [facility] 12-29-2022 17:44-0400 Diastolic blood pressure 80 mm[Hg] Karrie Tannhof SLIP TENDER.[place] MACHINE OPERATOR Work Phone: [facility] 12-29-2022 17:44-0400 Heart rate 99 /min Karrie Tannhof SLIP TENDER.[place] MACHINE OPERATOR Work Phone: [facility] 12-29-2022 17:44-0400 Respiratory rate 16 /min Karrie Tannhof SLIP TENDER.[place] MACHINE OPERATOR Work Phone: [facility] 12-29-2022 17:44-0400 SaO2% (BldA) [Mass fraction] 97 % Karrie Tannhof SLIP TENDER.[place] MACHINE OPERATOR Work Phone: [facility] 12-29-2022 17:44-0400 Systolic blood pressure 110 mm[Hg] Karrie Tannhof SLIP TENDER.[place] MACHINE OPERATOR Work Phone: [facility] 10-12-2022 07:45-0400 Body temperature 100.4 [degF] Krislyn Aberegg PA Work Phone: [facility] 10-12-2022 07:45-0400 Body weight 82.92 kg Krislyn Aberegg PA Work Phone: [facility] 10-12-2022 07:45-0400 Diastolic blood pressure 82 mm[Hg] Krislyn Aberegg PA Work Phone: [facility] 10-12-2022 07:45-0400 Heart rate 92 /min Krislyn Aberegg PA Work Phone: [facility] 10-12-2022 07:45-0400 Respiratory rate 20 /min Krislyn Aberegg PA Work Phone: [facility] 10-12-2022 07:45-0400 SaO2% (BldA) [Mass fraction] 98 % Krislyn Aberegg PA Work Phone: [facility] 10-12-2022 07:45-0400 Systolic blood pressure 122 mm[Hg] Krislyn Aberegg PA Work Phone: [facility] 09-22-2022 17:58-0500 Body weight 80.74 kg Karrie Tannhof SLIP TENDER.[place] MACHINE OPERATOR Work Phone: [facility] 09-22-2022 17:58-0500 Diastolic blood pressure 82 mm[Hg] Karrie Tannhof SLIP TENDER.[place] MACHINE OPERATOR Work Phone: [facility] 09-22-2022 17:58-0500 Heart rate 89 /min Karrie Tannhof SLIP TENDER.[place] MACHINE OPERATOR Work Phone: [facility] 09-22-2022 17:58-0500 Respiratory rate 16 /min Karrie Tannhof SLIP TENDER.[place] MACHINE OPERATOR Work Phone: [facility] 09-22-2022 17:58-0500 SaO2% (BldA) [Mass fraction] 99 % Karrie Tannhof SLIP TENDER.[place] MACHINE OPERATOR Work Phone: [facility] 09-22-2022 17:58-0500 Systolic blood pressure 136 mm[Hg] Karrie Tannhof SLIP TENDER.[place] MACHINE OPERATOR Work Phone: [facility] 05-13-2022 20:26-0400 Body height 180.34 cm [facility] Work Phone: 05-13-2022 20:26-0400 Body mass index (BMI) [Ratio] 24.1 kg/m2 [facility] Work Phone: 05-13-2022 20:26-0400 Body temperature 98 [degF] [facility] Work Phone: 05-13-2022 20:26-0400 Body weight 78.47 kg [facility] Work Phone: 05-13-2022 20:26-0400 Diastolic blood pressure 82 mm[Hg] [facility] Work Phone: 05-13-2022 20:26-0400 Heart rate 78 /min [facility] Work Phone: 05-13-2022 20:26-0400 Respiratory rate 18 /min [facility] Work Phone: 05-13-2022 20:26-0400 SaO2% (BldA) [Mass fraction] 99 % [facility] Work Phone: 05-13-2022 20:26-0400 Systolic blood pressure 131 mm[Hg] [facility] Work Phone: 01-09-2022 08:19-0400 Body temperature 98.01 [degF] Karrie Tannhof SLIP TENDER.[place] MACHINE OPERATOR Work Phone: [facility] [facility] 01-09-2022 08:19-0400 Body weight 81.1 kg Karrie Tannhof SLIP TENDER.[place] MACHINE OPERATOR Work Phone: [facility] 01-09-2022 08:19-0400 Diastolic blood pressure 80 mm[Hg] Karrie Tannhof SLIP TENDER.[place] MACHINE OPERATOR Work Phone: [facility] 01-09-2022 08:19-0400 Heart rate 92 /min Karrie Tannhof SLIP TENDER.[place] MACHINE OPERATOR Work Phone: [facility] 01-09-2022 08:19-0400 Respiratory rate 16 /min Karrie Tannhof SLIP TENDER.[place] MACHINE OPERATOR Work Phone: [facility] 01-09-2022 08:19-0400 SaO2% (BldA) [Mass fraction] 99 % Karrie Tannhof SLIP TENDER.[place] MACHINE OPERATOR Work Phone: [facility] 01-09-2022 08:19-0400 Systolic blood pressure 130 mm[Hg] Karrie Tannhof SLIP TENDER.[place] MACHINE OPERATOR Work Phone: [facility] 12-30-2021 07:02-0400 Body weight 78.93 kg Karrie Abraham SLIP TENDER.[place] MACHINE OPERATOR Work Phone: [facility] 12-30-2021 07:02-0400 Diastolic blood pressure 80 mm[Hg] Karrie Bakerhof SLIP TENDER.[place] MACHINE OPERATOR Work Phone: [facility] 12-30-2021 07:02-0400 Heart rate 91 /min Karrie Perezf SLIP TENDER.[place] MACHINE OPERATOR Work Phone: [facility] 12-30-2021 07:02-0400 Respiratory rate 16 /min Karrie Perezf SLIP TENDER.[place] MACHINE OPERATOR Work Phone: [facility] 12-30-2021 07:02-0400 SaO2% (BldA) [Mass fraction] 97 % Karrie Perezf SLIP TENDER.[place] MACHINE OPERATOR Work Phone: [facility] 12-30-2021 07:02-0400 Systolic blood pressure 110 mm[Hg] Karrie Perezf SLIP TENDER.[place] MACHINE OPERATOR Work Phone: [facility] 12-16-2021 09:45-0400 Body height 180.34 cm [facility] Work Phone: 12-16-2021 09:45-0400 Body mass index (BMI) [Ratio] 25.1 kg/m2 [facility] Work Phone: 12-16-2021 09:45-0400 Body temperature 97.6 [degF] [facility] Work Phone: 12-16-2021 09:45-0400 Body weight 81.64 kg [facility] Work Phone: 12-16-2021 09:45-0400 Diastolic blood pressure 77 mm[Hg] [facility] Work Phone: 12-16-2021 09:45-0400 Heart rate 78 /min [facility] Work Phone: 12-16-2021 09:45-0400 Respiratory rate 14 /min [facility] Work Phone: 12-16-2021 09:45-0400 SaO2% (BldA) [Mass fraction] 93 % [facility] Work Phone: 12-16-2021 09:45-0400 Systolic blood pressure 106 mm[Hg] [facility] Work Phone: Encounters Encounter Date Encounter Type Care Provider Facility Start: 04-08-2025 ambulatory Cisco Koroma Facilit y:[facility] Start: 10-24-2024 End: 10-24-2024 Office outpatient visit 25 minutes Karrie Rosario APRN.[place] MACHINE OPERATOR Work Phone: [facility] Comment on above: Tremor (Primary Dx); Controlled type 2 diabetes mellitus without complication, without long-term current use of insulin (HCC); Hypertension, essential; Mixed hyperlipidemia; Migraine without aura, intractable, without status migrainosus Start: 10-24-2024 End: 10-24-2024 ambulatory CISCO KOROMA Facility:[facility] Start: 09-26-2024 End: 09-26-2024 Refill Cisco Koroma MD Work Phone: [facility] Comment on above: Refill Request Start: 09-03-2024 End: 09-03-2024 Telephone encounter Karrie Rosario APRN.[place] MACHINE OPERATOR Work Phone: [facility] Comment on above: Results (Labs) Start: 08-31-2024 End: 08-31-2024 ambulatory CISCO KOROMA Facility:[facility] Start: 07-30-2024 End: 08-03-2024 Telephone encounter Cisco Koroma MD Work Phone: [facility] [place] Comment on above: Patient Request Start: 07-17-2024 End: 07-17-2024 ambulatory Cisco Koroma MD Work Phone: [facility] [place] Comment on above: Low Blood Sugar Start: 06-06-2024 End: 06-06-2024 Patient encounter procedure Karrie Rosario APRN.[place] MACHINE OPERATOR Work Phone: [facility] Comment on above: Tremor (Primary Dx); Controlled type 2 diabetes mellitus without complication, without long-term current use of insulin (HCC); Hypertension, essential; Mixed hyperlipidemia; Migraine without aura, intractable, without status migrainosus; Difficulty sleeping; Encounter for immunization Start: 06-06-2024 End: 06-06-2024 [facility] Facility:[facility] Start: 06-02-2024 End: 06-02-2024 [facility] Facility:[facility] Start: 02-08-2024 End: 02-08-2024 Patient encounter procedure Karrie Rosario APRN.[place] MACHINE OPERATOR Work Phone: [facility] Comment on above: Controlled type 2 di abetes mellitus without complication, without long-term current use of insulin (HCC) (Primary Dx); Hypertension, essential; Mixed hyperlipidemia; Migraine without aura, intractable, without status migrainosus; Difficulty sleeping; Type 2 diabetes mellitus without retinopathy (HCC) Start: 02-08-2024 End: 02-08-2024 [facility] Facility:[facility] Start: 02-06-2024 End: 02-06-2024 [facility] Facility:[facility] Start: 11-09-2023 End: 11-09-2023 Patient encounter procedure Karrie Rosario APRN.[place] MACHINE OPERATOR Work Phone: [facility] Comment on above: Controlled type 2 di abetes mellitus without complication, without long-term current use of insulin (HCC) (Primary Dx); Hypertension, essential; Mixed hyperlipidemia; Migraine without aura, intractable, without status migrainosus; Difficulty sleeping Start: 11-09-2023 End: 11-09-2023 [facility] Facility:[facility] Start: 11-05-2023 End: 11-05-2023 [facility] Facility:[facility] Start: 10-25-2023 Telephone encounter Cisco nieto MD Work Phone: [facility] [place] Comment on above: Erroneous encounter- disregard Start: 10-15-2023 Refill Karrie Rosario APRN.[place] MACHINE OPERATOR Work Phone: [facility] Comment on above: Refill Request Start: 03-30-2023 End: 03-30-2023 Patient encounter procedure Karrie Rosario APRN.[place] MACHINE OPERATOR Work Phone: [facility] Comment on above: Controlled type 2 di abetes mellitus without complication, without long-term current use of insulin (HCC) (Primary Dx); Migraine without aura, intractable, without status migrainosus; Mixed hyperlipidemia Start: 12-29-2022 End: 12-29-2022 Patient encounter procedure Karrie Rosario APRN.[place] MACHINE OPERATOR Work Phone: [facility] Comment on above: Controlled type 2 di abetes mellitus without complication, without long-term current use of insulin (HCC) (Primary Dx); Migraine without aura, intractable, without status migrainosus; Mixed hyperlipidemia Start: 11-08-2022 Refill Cisco schilling MD Work Phone: [facility] [place] Comment on above: Refill Request Start: 10-13-2022 Telephone encounter Nhgia pérez APRN.[place] MACHINE OPERATOR Work Phone: [facility] Comment on above: Results Start: 10-12-2022 End: 10-12-2022 Subsequent hospital visit by physician Xr [facility] [place] Work Phone: Radiology Comment on above: Acute cough [R05.1] Start: 10-12-2022 End: 10-12-2022 Patient encounter procedure Gaby MORAN Work Phone: [facility] Comment on above: Acute cough (Primary Dx); Bronchitis Start: 09-22-2022 End: 09-22-2022 Patient encounter procedure Karrie Rosario APRN.CNP Work Phone: [facility] [place] Comment on above: Controlled type 2 di abetes mellitus without complication, without long-term current use of insulin (HCC) (Primary Dx); Mixed hyperlipidemia; Migraine without aura and without status migrainosus, not intractable Start: 09-20-2022 Telephone encounter Karrie ogden APRN.[place] MACHINE OPERATOR Work Phone: [facility] [place] Comment on above: Orders Start: 05-13-2022 End: 05-13-2022 Emergency department patient visit [facility] Start: 03-22-2022 Telephone encounter Karrie ogden APRN.[place] MACHINE OPERATOR Work Phone: [facility] Comment on above: Orders (Requesting l ab work) Start: 01-09-2022 End: 01-09-2022 Subsequent hospital visit by physician Xr [facility] Work Phone: Radiology Comment on above: Right elbow pain [M2 5.521] Start: 01-09-2022 End: 01-09-2022 Patient encounter procedure Karrie Rosario APRN.[place] MACHINE OPERATOR Work Phone: [facility] Comment on above: Right elbow pain (Pr imary Dx); Muscle strain Start: 12-30-2021 End: 12-30-2021 Patient encounter procedure Karrie Rosario APRN.[place] MACHINE OPERATOR Work Phone: [facility] Comment on above: Visit for suture rem oval (Primary Dx); Injury of left index finger, initial encounter; Controlled type 2 diabetes mellitus without complication, without long-term current use of insulin (HCC) Start: 12-16-2021 Telephone encounter Cisco nieto MD Work Phone: [facility] Comment on above: Patient Question Start: 12-16-2021 End: 12-16-2021 Emergency department patient visit [facility] Procedures Date Procedure Procedure Detail Performing Clinician Start: 02-08-2024 Adult depression scr eening assessment [facility] Work Phone: Start: 10-12-2022 Radiologic exam ches t 2 views Gaby Cervantes PA Work Phone: Start: 05-13-2022 Plain chest X-ray Start: 01-09-2022 Radex elbow complete minimum 3 views Karrie Rosario APRN.[place] MACHINE OPERATOR Work Phone: Start: 12-16-2021 Diagnostic radiograp hy of finger Start: 03-11-2021 Adult depression scr eening assessment Cisco Koroma MD Work Phone: Start: 07-26-2013 Colonoscopy Cisco madrid MD Work Phone: Plan of Treatment Date Care Activity Detail Author Start: 11-20-2035 RSV Vaccine (1 - 1-d ose 75+ series) RSV Vaccine (1 - 1-dose 75+ series) [facility] Start: 12-17-2031 Urine microalbumin profile [facility] Start: 03-31-2027 PROSTATE CANCER SCREENING DISCUSSION PROSTATE CANCER SCREENING DISCUSSION [facility] Start: 03-31-2027 Prostate specific antigen measurement Prostate Cancer Screening Discussion [facility] Start: 10-24-2025 Annual PCP Team Research Nutritionist janeth Disease Visit Annual PCP Team Chronic Disease Visit [facility] Start: 06-06-2025 Annual PCP Team Research Nutritionist janeth Disease Visit Annual PCP Team Chronic Disease Visit [facility] Start: 06-02-2025 Hepatitis B screening Urine Al bumin:Creatinine Ratio [facility] Start: 06-02-2025 Hepatitis B surface antibody level LDL Cholesterol [facility] Start: 02-28-2025 Hemoglobin A1c measurement HbA1C [facility] Start: 02-25-2025 End: 02-25-2025 Patient encounter procedure 02/25/2025 3:40 PM EDT Office Visit Neurology [address] [place] [id number] [address] Jr., MD [address] [place] [address] Tremor [R25.1] Neurology Comment on above: Tremor [R25.1] Start: 02-07-2025 Annual PCP Team Research Nutritionist janeth Disease Visit Annual PCP Team Chronic Disease Visit [facility] Start: 02-07-2025 Anxiety Screening Anxiety Screening [facility] Start: 02-07-2025 Depression Screening Depression Scre ening [facility] Start: 02-07-2025 HIV screening HIV Screening [facility] Comment on above: Postponed from 11/19 (Declined at this time) Start: 12-01-2024 End: 03-02-2025 Comprehensive metabolic 2000 panel - Serum or Plasma COMPREHENSIVE METABOLIC PANEL Lab Routine Mixed hyperlipidemia Expected: 12/01/2024, Expires: 03/02/2025 [facility] Work Phone: Comment on above: Expected: 12/01/2024 , Expires: 03/02/2025 Start: 12-01-2024 End: 03-02-2025 Hemoglobin A1c in Blood HEMOGLOBIN A1C Lab Routine Controlled type 2 diabetes mellitus without complication, without long-term current use of insulin (HCC) Expected: 12/01/2024, Expires: 03/02/2025 [facility] Comment on above: Expected: 12/01/2024 , Expires: 03/02/2025 Start: 12-01-2024 End: 03-02-2025 Lipid 1996 panel - Serum or Plasma LIPID PANEL BASIC Lab Routine Mixed hyperlipidemia Expected: 12/01/2024, Expires: 03/02/2025 [facility] Comment on above: Expected: 12/01/2024 , Expires: 03/02/2025 Start: 11-30-2024 Hemoglobin A1c measurement HbA1C [facility] Start: 11-08-2024 Annual PCP Team Research Nutritionist janeth Disease Visit Annual PCP Team Chronic Disease Visit [facility] Start: 11-08-2024 BP Controlled (<130/80) BP Controlle d (<130/80) [facility] Start: 11-04-2024 Hepatitis B surface antibody level LDL Cholesterol [facility] Start: 10-31-2024 End: 10-31-2024 Patient encounter procedure 10/31/2024 4:20 PM EDT Office Visit Family [facility] [address] [place] [address] Karrie Rosario APRN.[place] MACHINE OPERATOR [address] [place] [address] 3 month follow up with labs Family [facility] Comment on above: 3 month follow up [facility] labs Start: 09-06-2024 End: 12-06-2024 Comprehensive metabolic 2000 panel - Serum or Plasma COMPREHENSIVE METABOLIC PANEL Lab Routine Controlled type 2 diabetes mellitus without complication, without long-term current use of insulin (HCC) Expected: 09/06/2024, Expires: 12/06/2024 [facility] Work Phone: Comment on above: Expected: 09/06/2024 , Expires: 12/06/2024 Start: 09-06-2024 End: 05-08-2025 Hemoglobin A1c in Blood HEMOGLOBIN A1C Lab Routine Controlled type 2 diabetes mellitus without complication, without long-term current use of insulin (HCC) Expected: 09/06/2024, Expires: 12/06/2024 [facility] Comment on above: Expected: 09/06/2024 , Expires: 12/06/2024 Start: 08-08-2024 Hemoglobin A1c measurement HbA1C [facility] Start: 07-27-2024 Annual PCP Team Research Nutritionist janeth Disease Visit Annual PCP Team Chronic Disease Visit [facility] Start: 05-16-2024 End: 05-16-2024 Patient encounter procedure 05/16/2024 4:00 PM EDT Office Visit [facility] [place] [address] [place], [place] [id number] Karrie Rosario APRN.[place] MACHINE OPERATOR [address] [facility] [place] [address] 3 month follow up [facility] [place] Comment on above: 3 month follow up Start: 05-10-2024 End: 08-09-2024 Comprehensive metabolic 2000 panel - Serum or Plasma COMPREHENSIVE METABOLIC PANEL Lab Routine Controlled type 2 diabetes mellitus without complication, without long-term current use of insulin (HCC) Expected: 05/10/2024, Expires: 08/09/2024 [facility] Work Phone: Comment on above: Expected: 05/10/2024 , Expires: 08/09/2024 Start: 05-10-2024 End: 08-09-2024 Hemoglobin A1c in Blood HEMOGLOBIN A1C Lab Routine Controlled type 2 diabetes mellitus without complication, without long-term current use of insulin (HCC) Expected: 05/10/2024, Expires: 08/09/2024 [facility] Comment on above: Expected: 05/10/2024 , Expires: 08/09/2024 Start: 05-10-2024 End: 08-09-2024 Lipid 1996 panel - Serum or Plasma LIPID PANEL BASIC Lab Routine Mixed hyperlipidemia Expected: 05/10/2024, Expires: 08/09/2024 [facility] Comment on above: Expected: 05/10/2024 , Expires: 08/09/2024 Start: 05-10-2024 End: 08-09-2024 Microalbumin/Creatinine [Mass Ratio] in Urine ALBUMIN/CREATININE RATIO, URINE Lab Routine Controlled type 2 diabetes mellitus without complication, without long-term current use of insulin (HCC) Expected: 05/10/2024, Expires: 08/09/2024 [facility] Comment on above: Expected: 05/10/2024 , Expires: 08/09/2024 Start: 04-01-2024 Covid-19 Vaccine () Covid-19 Vaccine () [facility] Start: 04-01-2024 Influenza vaccination Influenza Vacc ine (#1) [facility] Start: 03-30-2024 ANNUAL PCP TEAM TELECOMMUNICATIONS SPECIALIST JANETH DISEASE VISIT ANNUAL PCP TEAM CHRONIC DISEASE VISIT [facility] Start: 02-08-2024 End: 05-09-2024 Comprehensive metabolic 2000 panel - Serum or Plasma COMPREHENSIVE METABOLIC PANEL Lab Routine Controlled type 2 diabetes mellitus without complication, without long-term current use of insulin (HCC) Expected: 02/08/2024, Expires: 05/09/2024 [facility] Work Phone: Comment on above: Expected: 02/08/2024 , Expires: 05/09/2024 Start: 02-08-2024 End: 05-09-2024 Hemoglobin A1c in Blood HEMOGLOBIN A1C Lab Routine Controlled type 2 diabetes mellitus without complication, without long-term current use of insulin (HCC) Expected: 02/08/2024, Expires: 05/09/2024 [facility] Work Phone: Comment on above: Expected: 02/08/2024 , Expires: 05/09/2024 Start: 02-04-2024 Hemoglobin A1c measurement HbA1C [facility] Start: 01-21-2024 Hemoglobin A1c measurement HbA1C [facility] Start: 12-30-2023 ANNUAL PCP TEAM TELECOMMUNICATIONS SPECIALIST JANETH DISEASE VISIT ANNUAL PCP TEAM CHRONIC DISEASE VISIT [facility] Start: 12-26-2023 Hepatitis B screening URINE AL BUMIN:CREATININE RATIO [facility] Start: 09-22-2023 ANNUAL PCP TEAM TELECOMMUNICATIONS SPECIALIST JANETH DISEASE VISIT ANNUAL PCP TEAM CHRONIC DISEASE VISIT [facility] Start: 09-22-2023 COVID-19 VACCINE (3 - Booster for Moderna series) COVID-19 VACCINE (3 - Booster for Moderna series) [facility] Comment on above: Postponed from 01/01 (Declined at this time) Start: 09-22-2023 COVID-19 VACCINE (3 - Moderna series) COVID-19 VACCINE (3 - Moderna series) [facility] Comment on above: Postponed from 01/01 (Declined at this time) Start: 09-22-2023 PNEUMOCOCCAL (2 - PCV) PNEUMOCOCCAL (2 - PCV) [facility] Comment on above: Postponed from 02/24 (Declined at this time) Start: 09-22-2023 SHINGRIX VACCINE (1 of 2) SHINGRIX VACCINE (1 of 2) [facility] Comment on above: Postponed from 11/19 (Declined at this time) Start: 09-21-2023 Hepatitis B surface antibody level LDL CHOLESTEROL [facility] Start: 08-01-2023 Behavioral Health Screening Behavioral Health Screening [facility] Start: 08-01-2023 Depression Assessment Depression Ass essment [facility] Start: 07-26-2023 Colonoscopy COLONOSCOPY [facility] Start: 07-26-2023 COLORECTAL CANCER SCREENING COLORECTAL CANCER SCREENING [facility] Start: 07-26-2023 Screening for malign ant neoplasm of colon [facility] Start: 06-30-2023 End: 08-30-2023 Comprehensive metabolic 2000 panel - Serum or Plasma COMP METABOLIC PANEL Lab Routine Controlled type 2 diabetes mellitus without complication, without long-term current use of insulin (HCC) Expected: 06/30/2023, Expires: 08/30/2023 [facility] Work Phone: Comment on above: Expected: 06/30/2023 , Expires: 08/30/2023 Start: 06-30-2023 End: 08-30-2023 Hemoglobin A1c in Blood HGB A1C Lab Routine Controlled type 2 diabetes mellitus without complication, without long-term current use of insulin (HCC) Expected: 06/30/2023, Expires: 08/30/2023 [facility] Work Phone: Comment on above: Expected: 06/30/2023 , Expires: 08/30/2023 Start: 06-28-2023 Hemoglobin A1c/Hemoglobin.total in Blood HBA1C [facility] Start: 06-27-2023 Hemoglobin A1c/Hemoglobin.total in Blood HBA1C [facility] Start: 04-01-2023 Covid-19 Vaccine ( season) Covid-19 Vaccine () [facility] Start: 04-01-2023 [facility] Start: 03-31-2023 End: 05-31-2023 Comprehensive metabolic 2000 panel - Serum or Plasma COMP METABOLIC PANEL Lab Routine Controlled type 2 diabetes mellitus without complication, without long-term current use of insulin (HCC) Expected: 03/31/2023, Expires: 05/31/2023 [facility] Work Phone: Comment on above: Expected: 03/31/2023 , Expires: 05/31/2023 Start: 03-31-2023 End: 05-31-2023 Hemoglobin A1c in Blood HGB A1C Lab Routine Controlled type 2 diabetes mellitus without complication, without long-term current use of insulin (HCC) Expected: 03/31/2023, Expires: 05/31/2023 [facility] Work Phone: Comment on above: Expected: 03/31/2023 , Expires: 05/31/2023 Start: 03-31-2023 Hepatitis B surface antibody level LDL CHOLESTEROL [facility] Start: 03-24-2023 ANNUAL PCP TEAM TELECOMMUNICATIONS SPECIALIST JANETH DISEASE VISIT ANNUAL PCP TEAM CHRONIC DISEASE VISIT [facility] Start: 03-24-2023 HIV SCREENING HIV SCREENING [facility] Comment on above: Postponed from 11/19 (Declined at this time) Start: 01-28-2023 Influenza vaccination INFLUENZA (#1) [facility] Comment on above: Postponed from 04/01 (Declined at this time) Start: 01-13-2023 Glaucoma screening Dilated Retinal E xam [facility] Start: 01-13-2023 Hepatitis C antibody , confirmatory test DILATED RETINAL EXAM [facility] Start: 12-30-2022 ANNUAL PCP TEAM TELECOMMUNICATIONS SPECIALIST JANETH DISEASE VISIT ANNUAL PCP TEAM CHRONIC DISEASE VISIT [facility] Start: 12-20-2022 End: 02-19-2023 ALBUMIN/CREAT RATIO RND UR ALBUMIN/CREAT RATIO RND UR Lab Routine Controlled type 2 diabetes mellitus without complication, without long-term current use of insulin (HCC) Expected: 12/20/2022, Expires: 02/19/2023 [facility] Work Phone: Comment on above: Expected: 12/20/2022 , Expires: 02/19/2023 Start: 12-20-2022 End: 02-19-2023 Comprehensive metabolic 2000 panel - Serum or Plasma COMP METABOLIC PANEL Lab Routine Controlled type 2 diabetes mellitus without complication, without long-term current use of insulin (HCC) Expected: 12/20/2022, Expires: 02/19/2023 [facility] Work Phone: Comment on above: Expected: 12/20/2022 , Expires: 02/19/2023 Start: 12-20-2022 End: 02-19-2023 Hemoglobin A1c in Blood HGB A1C Lab Routine Controlled type 2 diabetes mellitus without complication, without long-term current use of insulin (HCC) Expected: 12/20/2022, Expires: 02/19/2023 [facility] Work Phone: Comment on above: Expected: 12/20/2022 , Expires: 02/19/2023 Start: 12-19-2022 Hemoglobin A1c/Hemoglobin.total in Blood HBA1C [facility] Start: 10-12-2022 End: 10-26-2022 Influenza virus A and B RNA and SARS-CoV-2 (COVID-19) N gene panel - Respiratory specimen by LUPE with probe detection COVID WITH FLUA+B, ROUTINE Microbiology Routine Acute cough Expected: 10/12/2022, Expires: 10/26/2022 [facility] Work Phone: Comment on above: Expected: 10/12/2022 , Expires: 10/26/2022 Start: 09-28-2022 Hemoglobin A1c/Hemoglobin.total in Blood HBA1C [facility] Start: 09-21-2022 Hepatitis B surface antibody level LDL CHOLESTEROL [facility] Start: 09-20-2022 End: 11-20-2022 Comprehensive metabolic 2000 panel - Serum or Plasma COMP METABOLIC PANEL Lab Routine Controlled type 2 diabetes mellitus without complication, without long-term current use of insulin (HCC) Expected: 09/20/2022, Expires: 11/20/2022 [facility] Work Phone: Comment on above: Expected: 09/20/2022 , Expires: 11/20/2022 Start: 09-20-2022 End: 11-20-2022 Hemoglobin A1c in Blood HGB A1C Lab Routine Controlled type 2 diabetes mellitus without complication, without long-term current use of insulin (HCC) Expected: 09/20/2022, Expires: 11/20/2022 [facility] Work Phone: Comment on above: Expected: 09/20/2022 , Expires: 11/20/2022 Start: 09-20-2022 End: 11-20-2022 Lipid 1996 panel - Serum or Plasma LIPID PANEL BASIC Lab Routine Mixed hyperlipidemia Expected: 09/20/2022, Expires: 11/20/2022 [facility] Work Phone: Comment on above: Expected: 09/20/2022 , Expires: 11/20/2022 Start: 09-16-2022 ANNUAL PCP TEAM TELECOMMUNICATIONS SPECIALIST JANETH DISEASE VISIT ANNUAL PCP TEAM CHRONIC DISEASE VISIT [facility] Start: 08-01-2022 DEPRESSION ASSESSMENT DEPRESSION ASS ESSMENT [facility] Start: 04-01-2022 Influenza vaccination [facility] Start: 03-22-2022 End: 05-22-2022 Comprehensive metabolic 2000 panel - Serum or Plasma COMP METABOLIC PANEL Lab Routine Controlled type 2 diabetes mellitus without complication, without long-term current use of insulin (HCC) Mixed hyperlipidemia Expected: 03/22/2022, Expires: 05/22/2022 [facility] Work Phone: Comment on above: Expected: 03/22/2022 , Expires: 05/22/2022 Start: 03-22-2022 End: 05-22-2022 Hemoglobin A1c in Blood HGB A1C Lab Routine Controlled type 2 diabetes mellitus without complication, without long-term current use of insulin (HCC) Expected: 03/22/2022, Expires: 05/22/2022 [facility] Work Phone: Comment on above: Expected: 03/22/2022 , Expires: 05/22/2022 Start: 03-22-2022 End: 05-22-2022 Lipid 1996 panel - Serum or Plasma LIPID PANEL BASIC Lab Routine Mixed hyperlipidemia Expected: 03/22/2022, Expires: 05/22/2022 [facility] Work Phone: Comment on above: Expected: 03/22/2022 , Expires: 05/22/2022 Start: 03-17-2022 Hepatitis B screening URINE AL BUMIN:CREATININE RATIO [facility] Start: 03-11-2022 Adult depression screening assessment DEPRESSION SCREENING [facility] Start: 03-11-2022 HIV SCREENING HIV SCREENING [facility] Comment on above: Postponed from 11/19 (Declined at this time) Start: 12-30-2021 End: 03-01-2022 Comprehensive metabolic 2000 panel - Serum or Plasma COMP METABOLIC PANEL Lab Routine Controlled type 2 diabetes mellitus without complication, without long-term current use of insulin (HCC) Expected: 12/30/2021, Expires: 03/01/2022 [facility] Work Phone: Comment on above: Expected: 12/30/2021 , Expires: 03/01/2022 Start: 12-30-2021 End: 03-01-2022 Hemoglobin A1c/Hemoglobin.total in Blood HGB A1C Lab Routine Controlled type 2 diabetes mellitus without complication, without long-term current use of insulin (HCC) Expected: 12/30/2021, Expires: 03/01/2022 [facility] Work Phone: Comment on above: Expected: 12/30/2021 , Expires: 03/01/2022 Start: 12-19-2021 Hemoglobin A1c/Hemoglobin.total in Blood HBA1C [facility] Start: 04-08-2021 COVID-19 VACCINE (3 - Booster for Moderna series) COVID-19 VACCINE (3 - Booster for Moderna series) [facility] Start: 01-01-2021 COVID-19 VACCINE (3 - Booster for Moderna series) COVID-19 VACCINE (3 - Booster for Moderna series) [facility] Start: 2020 RSV Vaccine (1 - 1-d ose 60+ series) RSV Vaccine (1 - 1-dose 60+ series) [facility] Start: 03-21-2020 3 comp foot exam completed DIABETIC FOOT EXAM [facility] Start: 03-21-2020 Diabetic foot examination Diabetic Foot Exam [facility] Start: 07-20-2019 Hepatitis C antibody , confirmatory test DILATED RETINAL EXAM [facility] Start: 03-14-2017 PROSTATE CANCER SCREENING DISCUSSION PROSTATE CANCER SCREENING DISCUSSION [facility] Start: 02-24-2011 PNEUMOCOCCAL (2 - PCV) PNEUMOCOCCAL (2 - PCV) [facility] Start: 02-24-2011 Pneumococcal vaccination Pneumococcal Vaccine (2 of 2 - PCV) [facility] Start: 02-24-2011 Pneumococcal Vaccine : 50+ (2 of 2 - PCV) Pneumococcal Vaccine: 50+ (2 of 2 - PCV) [facility] Start: 2010 SHINGRIX VACCINE (1 of 2) SHINGRIX VACCINE (1 of 2) [facility] Start: 2005 COLOGUARD (FIT-DNA) COLOGUARD (FIT-D NA) [facility] Start: [address] COLONOGRAPHY [facility] Start: 2005 FECAL OCCULT BLOOD FECAL OCCULT BLOO D [facility] Start: 2005 Screening for malign ant neoplasm of colon [facility] Start: 2005 SIGMOIDOSCOPY SIGMOIDOSCOPY [facility] Start: 1978 BP Controlled (<130/80) BP Controlle d (<130/80) [facility] Start: 1978 HIV SCREENING HIV SCREENING [facility] Start: 1978 HIV screening HIV Screening [facility] Patient Education [facility] Work Phone: Patient referral [facility] Work Phone: [facility] Immunizations Immunization Date Immunization Notes Care Provider Rosina guadarrama 06-06-2024 influenza, seasonal, injectable Karrie Rosario APRN.CNP Work Phone: [facility] 07-27-2023 influenza, injectabl e, quadrivalent, contains preservative Karrie Rosario APRN.CNP Work Phone: [facility] 07-27-2023 influenza virus vacc ine, unspecified formulation Karrie Rosario APRN.CNP Work Phone: [facility] 12-16-2021 tetanus toxoid, redu maude diphtheria toxoid, and acellular pertussis vaccine, adsorbed Cisco Koroma MD Work Phone: [facility] 11-06-2020 COVID-19 vaccine, fu ll dose (MODERNA) Cisco Koroma MD Work Phone: [facility] 10-08-2020 COVID-19 vaccine, fu ll dose (MODERNA) Cisco Koroma MD Work Phone: [facility] 09-19-2019 influenza, injectabl e, quadrivalent, contains preservative Cisco Koroma MD Work Phone: [facility] 09-01-2018 influenza, injectabl e, quadrivalent, contains preservative Cisco Koroma MD Work Phone: [facility] 05-30-2017 influenza, seasonal, injectable Cisco Koroma MD Work Phone: [facility] 05-27-2016 influenza, seasonal, injectable Cisco Koroma MD Work Phone: [facility] 05-18-2015 influenza, seasonal, injectable Cisco Koroma MD Work Phone: [facility] 04-18-2014 influenza, seasonal, injectable Cisco Koroma MD Work Phone: [facility] 02-24-2010 pneumococcal polysaccharide vaccine, 23 valent Cisco Koroma MD Work Phone: [facility] 02-24-2010 tetanus toxoid, redu maude diphtheria toxoid, and acellular pertussis vaccine, adsorbed Cisco Koroma MD Work Phone: [facility] 04-18-2009 influenza virus vacc ine, unspecified formulation Cisco Koroma MD Work Phone: [facility] Payers Date Payer Category Payer Self-pay [id number] 2025 Formerly [facility] [id number] 2024 Blue [employer] Blue Shield BLUE ACCE SS PPO [id number] 2024 Unknown [id number] 2021 Private Health Insurance MMO SUP ERMED PPO [id number] 2021 Unknown [id number] 2019 Unknown MMO MMO SUPER[employer] PLUS [id number] 2019-Present [phone] [address] [place] [address] PPO [id number] 2019 Unknown [id number] Unknown [id number] Unknown [id number] Social History Date Type Detail Facility Start: 12-16-2021 End: 05-13-2022 Tobacco smoking status NHIS Unknown if ever smoked [facility] Work Phone: Start: 1960 Sex Assigned At Male W [facility] Work Phone: Start: 07-22-2017 End: 03-24-2022 Tobacco smoking status NHIS Never smoked tobacco [facility] Start: 09-16-2021 End: 10-24-2024 Alcohol intake Current non-drinker of alcohol (finding) [facility] Start: 1960 Sex Assigned At Not on file [facility] Start: 12-20-2021 End: 01-09-2022 Exposure to SARS-CoV-2 (event) Not sure [facility] Start: 07-22-2017 End: 03-24-2022 Tobacco use and exposure Smokeless tobacco non-user [facility] Start: 12-29-2022 End: 03-30-2023 History of Social function [facility] Work Phone: Start: 12-29-2022 End: 03-30-2023 Tobacco use panel [facility] Work Phone: Adult Depression Screening Assessment 0 [facility] Work Phone: Medical Equipment Procedure Code Equipment Code Equipment Origin al Text Equipment Identifier Dates Test blood sugar(s) 1 times daily. Dx: Type 2 DM - Controlled E11.9 Insulin: No [id number], [id number] Start: 09-16-2021 End: 09-22-2022 Comment on above: Test blood sugar(s) 1 times daily. Dx: Type 2 DM - Controlled E11.9 Insulin: No Functional Status Date Assessment Result Facility 01-16-2015 Are you deaf, or do you have serious difficulty hearing No 01/16/2015 11:52 AM Lorraine Engel MA [facility] 01-16-2015 Are you blind, or do you have serious difficulty seeing, even when wearing glasses No 01/16/2015 11:52 AM Lorraine Engel MA No [facility] 01-16-2015 Do you have serious difficulty walking or climbing stairs No 01/16/2015 11:52 AM EDT Lorraine Garcia MA No [facility] 01-16-2015 Do you have difficul ty dressing or bathing No 01/16/2015 11:52 AM EDT Lorraine Garcia MA No [facility] 01-16-2015 Because of a physica l, mental, or emotional condition, do you have difficulty doing errands alone such as visiting a physician's office or shopping No 01/16/2015 11:52 AM EDT Lorraine Garcia MA No [facility] Mental Status Date Assessment Result Facility 05-13-2022 Cognitive function Level Of Cons ciousness Awake;Alert;Appropriate;Fol lows Commands [facility] Work Phone: 01-16-2015 Because of a physica l, mental, or emotional condition, do you have serious difficulty concentrating, remembering, or making decisions No 01/16/2015 11:52 AM EDT Lorraine Garcia MA No [facility] Clinical Notes 07-15-2008 to 10-24-2024 Patient InstructionsTanKarrie ogden APRN.CNP - 10/24/2024 3:20 PM EDTTelephone Encounter - Samantha Mi Christopher - 09/26/2024 2:02 PM ESTPatient InstructionsPatient InstructionsPatient Instructions Note Date & Type Note Facility 10-24-2024 Instructions Karrie Rosario APRN.CNP - 10/24/2024 3:21 PM EDT Continue to take all medication as prescribed Work on eating low carb diet Get repeat labs in November prior to next visit Start Propanolol 10 mg twice daily. Start with 1 tablet daily for 5-7 days and then increase to twice daily. Schedule consult with Neurology. ' Follow up in November or sooner as needed. documented in this encounter [facility] 10-24-2024 History of Presen t illness Narrative This is a 63 year old male who presents today with: Patient presents with: Follow Up: 3 month HISTORY OF PRESENT ILLNESS: Erick Serna is a 63 year old male. Patient presents with: Follow Up: 3 month 3 month follow up Tremor in the hands bilaterally, has been on going for years. 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 Denies difficulty with gait, no family history of Parkinson's. Refers that symptoms seem to be getting worse. Has noticed some trouble trying to weld at work. Has an active consult for neurology, has yet to schedule. DM: Reports overall feeling well. Medication side effects: No. Home sugar checks: 130-150's Hypoglycemic spells: No. Watching diet: Trying to work on watching diet but due to work will eat late. Likes sweets. Unexpected weight loss: No. Polyuria, polydipsia: No. Vision Changes: No. Foot lesions or numbness or pain: No. Taking Metformin 1000 mg BID, amaryl 4 mg, 2 tablets daily, Actos 30 mg daily, and in September increase Trulicity 1.5 mg weekly. Had to stop Amaryl due to hypoglycemia, since he has been out of Trulicity due to cost started back on current dosing of Amaryl. Last A1C 7.0. Repeat labs due in November. due for eye exam. Refers that he has been having difficulty getting Trulicity due to insurance deductible. Has noticed some tingling in the tip of the feet at the end of the day and then resolves. Noitces in the morning and evening. HTN: Taking Lisinopril 2.5 mg for kidney protection. Migraines: Stable without medication Lipids: Taking atorvastatin 20 mg daily. Watching diet. Colonoscopy: Past due, would like to address at next visit. PAST MEDICAL HISTORY: PAST MEDICAL HISTORY Diagnosis Date Back pain Essential hypertension Hypercholesteremia Other and unspecified hyperlipidemia Type II or unspecified type diabetes mellitus without mention of complication, not stated as uncontrolled PAST SURGICAL HISTORY Procedure Laterality Date APPENDECTOMY 1990 COLONOSCOPY FLX DX W/COLLJ SPEC WHEN PFRMD Colonoscopy PAST SURGICAL HISTORY OF 05/23/2002 VENTERAL HERNIA REPAIR ALLERGIES Patient has no known allergies. MEDICATIONS Current Outpatient Medications Medication Sig dulaglutide (TRULICITY) 1.5 mg/0.5 mL pen injector Inject 1.5 mg subcutaneously one time a week. Discard Pen After pioglitazone (ACTOS) 30 mg tablet Take 1 tablet by mouth once daily. simvastatin (ZOCOR) 20 mg tablet take 1 tablet by mouth daily at bedtime lisinopril 2.5 mg tablet take 1 tablet by mouth once daily glimepiride (AMARYL) 4 mg tablet TAKE 2 TABLETS BY MOUTH DAILY WITH BREAKFAST metFORMIN (GLUCOPHAGE) 1,000 mg tablet take 1 tablet by mouth twice daily with meals SUMAtriptan (IMITREX) 100 mg tablet Take 1 tablet by mouth as needed for migraine headache (see administration instructions). benzonatate (TESSALON PERLES) 100 mg capsule Take 1 capsule by mouth three times daily as needed for cough. (Patient not taking: Reported on 12/29/2022) blood sugar diagnostic (BLOOD GLUCOSE TEST) test strip Test blood sugar(s) 1 times daily. Dx: Type 2 DM - Controlled E11.9 Insulin: No aspirin, enteric coated (ASPIRIN LOW DOSE) 81 mg EC tablet Take 1 tablet by mouth once daily. No current facility-administered medications for this visit. FAMILY HISTORY Problem Relation Age of Onset Diabetes Father No Ocular Disease No Family History Social History Tobacco Use Smoking status: Never Smokeless tobacco: Never Vaping Use Vaping status: Never Used Substance Use Topics Alcohol use: No Drug use: No REVIEW OF SYSTEMS GENERAL: No weight loss, malaise or fevers/chills HEENT: Negative for frequent or significant headaches, No changes in hearing or vision. NECK: Negative for lumps, goiter, pain and significant neck swelling RESPIRATORY: Negative for cough, hemoptysis, wheezing, dyspnea or shortness of breath CARDIOVASCULAR: Negative for chest pain, leg swelling, orthopnea, or palpitations GI: No nausea, vomiting, or diarrhea/constipation. No hematochezia/melena. No heartburn or reflux symptoms. : No history of dysuria, frequency or incontinence MUSCULOSKELETAL: Negative for joint pain or swelling. SKIN: Negative for lesions, rash, and itching ENDOCRINE: Negative for cold or heat intolerance, polyuria, polydipsia and goiter NEURO: + Tremor MOOD: Negative for depression, anxiety, or suicidal ideation. EXAM: BP 130/88 Pulse 98 Resp 16 Wt 75.5 kg (166 lb 7.2 oz) SpO2 98% BMI 23.21 kg/m PHYSICAL EXAM: General Appearance: Well appearing, alert, in no acute distress, well-hydrated, well nourished. Skin: Skin color, texture, turgor normal, no suspicious rashes or lesions. Head: Normocephalic, no masses, lesions, tenderness or abnormalities. Eyes: Anicteric sclera. Extraocular movements are intact. Lungs: Lungs clear to auscultation. No wheezing, rhonchi, rales. Heart: RRR without murmur, gallop, or rubs. No ectopy. Extremities: No deformities, edema, skin discoloration, clubbing or cyanosis. Good capillary refill. Peripheral Pulses: Normal, Capillary refill <2secs, strong peripheral pulses, Pulses palpable. Neurologic: Gait normal. Reflexes normal and symmetric. Sensation grossly intact., Tremor noted in bilateral hands with movement, no tremor noted at rest. ASSESSMENT/PLAN: 1. Tremor - ICD9: 781.0, ICD10: R25.1 (primary diagnosis) - Start propranolol 10 mg twice daily. - Schedule consult with neurology. - PROPRANOLOL 10 MG TABLET 2. Controlled type 2 diabetes mellitus without complication, without long-term current use of insulin (HCC) - ICD9: 250.00, ICD10: E11.9 - Repeat labs due in November. - Instructed to continue take all medication as prescribed. - Continue to work on eating a low-carb diet and get some form of exercise. - GLIMEPIRIDE 4 MG TABLET - METFORMIN 1,000 MG TABLET - SIMVASTATIN 20 MG TABLET - PIOGLITAZONE 30 MG TABLET 3. Hypertension, essential - ICD9: 401.9, ICD10: I10 - Controlled - Continue current medications - Recommend home blood pressure monitoring, to bring results to next visit - Encouraged sodium restriction, DASH or Mediterranean diet - Recommend regular aerobic exercise 4. Mixed hyperlipidemia - ICD9: 272.2, ICD10: E78.2 - Control undetermined, due for labs - Continue current medications - Counseled on healthy diet and regular exercise - SIMVASTATIN 20 MG TABLET 5. Migraine without aura, intractable, without status migrainosus - ICD9: 346.11, ICD10: G43.019 - Stable, continue to take current medication. Follow-up in 2 months or sooner as needed Discussed treatment plan and patient voices understanding. Patient's questions answered appropriately. Medications and potential side effects were discussed and patient voices understanding. Karrie Rosario APRN.[place] MACHINE OPERATOR This note was partially generated using [employer] recognition system. Note was reviewed for accuracy. There may be minor misspellings or grammar miscues with [employer] voice recognition. documented in this encounter [facility] 10-24-2024 Note HNO ID: [id number] Author: KARRIE ROSARIO APRN.JULIO Service: ? Author Type: Nurse Practitioner Type: Progress Notes Filed: 10/24/2024 18:31 Note Text: This is a 63 year old male who presents today with: Patient presents with: Follow Up: 3 month HISTORY OF PRESENT ILLNESS: Erick Serna is a 63 year old male. Patient presents with: Follow Up: 3 month 3 month follow up Tremor in the hands bilaterally, has been on going for years. 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 Denies difficulty with gait, no family history of Parkinson's. Refers that symptoms seem to be getting worse. Has noticed some trouble trying to weld at work. Has an active consult for neurology, has yet to schedule. DM: Reports overall feeling well. Medication side effects: No. Home sugar checks: 130-150's Hypoglycemic spells: No. Watching diet: Trying to work on watching diet but due to work will eat late. Likes sweets. Unexpected weight loss: No. Polyuria, polydipsia: No. Vision Changes: No. Foot lesions or numbness or pain: No. Taking Metformin 1000 mg BID, amaryl 4 mg, 2 tablets daily, Actos 30 mg daily, and in September increase Trulicity 1.5 mg weekly. Had to stop Amaryl due to hypoglycemia, since he has been out of Trulicity due to cost started back on current dosing of Amaryl. Last A1C 7.0. Repeat labs due in November. due for eye exam. Refers that he has been having difficulty getting Trulicity due to insurance deductible. Has noticed some tingling in the tip of the feet at the end of the day and then resolves. Noitces in the morning and evening. HTN: Taking Lisinopril 2.5 mg for kidney protection. Migraines: Stable without medication Lipids: Taking atorvastatin 20 mg daily. Watching diet. Colonoscopy: Past due, would like to address at next visit. PAST MEDICAL HISTORY: PAST MEDICAL HISTORY Diagnosis Date Back pain Essential hypertension Hypercholesteremia Other and unspecified hyperlipidemia Type II or unspecified type diabetes mellitus without mention of complication, not stated as uncontrolled PAST SURGICAL HISTORY Procedure Laterality Date APPENDECTOMY 1990 COLONOSCOPY FLX DX W/COLLJ SPEC WHEN PFRMD Colonoscopy PAST SURGICAL HISTORY OF 05/23/2002 VENTERAL HERNIA REPAIR ALLERGIES Patient has no known allergies. MEDICATIONS Current Outpatient Medications Medication Sig dulaglutide (TRULICITY) 1.5 mg/0.5 mL pen injector Inject 1.5 mg subcutaneously one time a week. Discard Pen After pioglitazone (ACTOS) 30 mg tablet Take 1 tablet by mouth once daily. simvastatin (ZOCOR) 20 mg tablet take 1 tablet by mouth daily at bedtime lisinopril 2.5 mg tablet take 1 tablet by mouth once daily glimepiride (AMARYL) 4 mg tablet TAKE 2 TABLETS BY MOUTH DAILY WITH BREAKFAST metFORMIN (GLUCOPHAGE) 1,000 mg tablet take 1 tablet by mouth twice daily with meals SUMAtriptan (IMITREX) 100 mg tablet Take 1 tablet by mouth as needed for migraine headache (see administration instructions). benzonatate (TESSALON PERLES) 100 mg capsule Take 1 capsule by mouth three times daily as needed for cough. (Patient not taking: Reported on 12/29/2022) blood sugar diagnostic (BLOOD GLUCOSE TEST) test strip Test blood sugar(s) 1 times daily. Dx: Type 2 DM - Controlled E11.9 Insulin: No aspirin, enteric coated (ASPIRIN LOW DOSE) 81 mg EC tablet Take 1 tablet by mouth once daily. No current facility-administered medications for this visit. FAMILY HISTORY Problem Relation Age of Onset Diabetes Father No Ocular Disease No Family History Social History Tobacco Use Smoking status: Never Smokeless tobacco: Never Vaping Use Vaping status: Never Used Substance Use Topics Alcohol use: No Drug use: No REVIEW OF SYSTEMS GENERAL: No weight loss, malaise or fevers/chills HEENT: Negative for frequent or significant headaches, No changes in hearing or vision. NECK: Negative for lumps, goiter, pain and significant neck swelling RESPIRATORY: Negative for cough, hemoptysis, wheezing, dyspnea or shortness of breath CARDIOVASCULAR: Negative for chest pain, leg swelling, orthopnea, or palpitations GI: No nausea, vomiting, or diarrhea/constipation. No hematochezia/melena. No heartburn or reflux symptoms. : No history of dysuria, frequency or incontinence MUSCULOSKELETAL: Negative for joint pain or swelling. SKIN: Negative for lesions, rash, and itching ENDOCRINE: Negative for cold or heat intolerance, polyuria, polydipsia and goiter NEURO: + Tremor MOOD: Negative for depression, anxiety, or suicidal ideation. EXAM: BP 130/88 Pulse 98 Resp 16 Wt 75.5 kg (166 lb 7.2 oz) SpO2 98% BMI 23.21 kg/m? PHYSICAL EXAM: General Appearance: Well appearing, alert, in no acute distress, well-hydrated, well nourished. Skin: Skin color, texture, turgor normal, no suspicious rashes or lesions. Head: Normocephalic, no masses, lesions, tenderness or abnormal (more content not included)... [facility] 09-26-2024 Telephone encount er Note Patient is asking for a refill on his Trulicity. He states the dose needs changed from 0.75 to 1.5 mg. Please review and advise. Samantha Mi September 26, 2024 2:04 PM [facility] 09-26-2024 Miscellaneous Notes Formattin g of this note might be different from the original. Patient is asking for a refill on his Trulicity. He states the dose needs changed from 0.75 to 1.5 mg. Please review and advise. Samantha Mi September 26, 2024 2:04 PM documented in this encounter [facility] 09-03-2024 Telephone encount er Note Patient notified of results, verbalizes understanding of instructions. Pt made 3 month appt. Garry Gonsales LPN [facility] 09-03-2024 Miscellaneous Notes Formattin g of this note might be different from the original. Patient notified of results, verbalizes understanding of instructions. Pt made 3 month appt. Garry Gonsales LPN Can you please call the patient and let him know that I reviewed his lab results. Labs are relatively stable. A1c went from 7.6 to 7.0. I would recommend increasing the Trulicity 1.5 mg weekly and recheck fasting labs in 3 months with office visit. Please let me know what he prefers. I would like him to continue to work on eating a low-carb diet and get some form exercise. Thank you. Karrie Rosario APRN.JULIO documented in this encounter [facility] 09-03-2024 Telephone encount er Note Can you please call the patient and let him know that I reviewed his lab results. Labs are relatively stable. A1c went from 7.6 to 7.0. I would recommend increasing the Trulicity 1.5 mg weekly and recheck fasting labs in 3 months with office visit. Please let me know what he prefers. I would like him to continue to work on eating a low-carb diet and get some form exercise. Thank you. Karrie Rosario APRN.[place] MACHINE OPERATOR [facility] 07-31-2024 Telephone encount er Note Pt called and is notified of providers results and instructions. Pt voices understanding. He is going to see if his insurance will put the medication through now. He is going to call and see about the cost and will call back in. Ami Nova, ANDREA [facility] 07-31-2024 Miscellaneous Notes Formattin g of this note might be different from the original. Pt called and is notified of providers results and instructions. Pt voices understanding. He is going to see if his insurance will put the medication through now. He is going to call and see about the cost and will call back in. Ami Nova RN Can you please call the patient back and let him know that he has a couple options to consider. Most of the injectables such as Ozempic and Mounjaro offer savings cards on their websites. Usually this will give you a deal for 24 months. If he prefers to use oral medication this would include SGLT2 medication such as Farxiga or Jardiance. He is Welcome to check with his insurance to evaluate cost. Thank you Karrie Rosario APRN.CNP Patient calling to give Karrie Rosario CNP a message. Patient reports Karrie ordered him Trulicity a couple months ago. He was able to pay $25-34 per month over the last 2 months, but his pharmacy has informed him that it will now cost him $900 a month. Patent states he cannot afford this and asking if Karrie can advise him. Patient also states his pharmacy told him that he will most likely have a high cost no matter what injectable medication is ordered.due to him having a high deducible. He believes he will likely have to take oral medication, moving forward, but he will await response from Karrie. Sandie advise patient. Thank you. documented in this encounter [facility] 07-31-2024 Telephone encount er Note Can you please call the patient back and let him know that he has a couple options to consider. Most of the injectables such as Ozempic and Mounjaro offer savings cards on their websites. Usually this will give you a deal for 24 months. If he prefers to use oral medication this would include SGLT2 medication such as Farxiga or Jardiance. He is Welcome to check with his insurance to evaluate cost. Thank you Karrie Rosario APRN.CNP [facility] 07-30-2024 Telephone encount er Note Patient calling to give Karrie Rosario CNP a message. Patient reports Karrie ordered him Trulicity a couple months ago. He was able to pay $25-34 per month over the last 2 months, but his pharmacy has informed him that it will now cost him $900 a month. Patent states he cannot afford this and asking if Karrie can advise him. Patient also states his pharmacy told him that he will most likely have a high cost no matter what injectable medication is ordered.due to him having a high deducible. He believes he will likely have to take oral medication, moving forward, but he will await response from Karrie. aSndie advise patient. Thank you. [facility] 07-17-2024 Telephone encount er Note Pt called and notified, verbalized understanding. Will d/c Glimepiride and monitor sugars. Will update office if he continues having issues with lows. Divya Etienne MA [facility] 07-17-2024 Miscellaneous Notes Formattin g of this note might be different from the original. Pt called and notified, verbalized understanding. Will d/c Glimepiride and monitor sugars. Will update office if he continues having issues with lows. Divya Etienne MA I would suggest that he stop the glimepiride and just use Trulicity, metformin and Actos for his sugars Cisco Koroma MD Patient calls for low blood sugar readings x 6 weeks since starting on Trulicity. Nurse triage recommends call PCP within 24 hours. Patient requesting medication review as he feels he is on too much diabetic medication. Care advice reviewed with verbalized understanding. Reason for Disposition [1] Blood glucose 70 mg/dL (3.9 mmol/L) or below OR symptomatic, now improved with Care Advice AND [2] cause unknown Answer Assessment - Initial Assessment Questions 1. SYMPTOMS: Sweaty, Hot, Light-headed at times. No symptoms currently. Reports since starting Trulicity 6 weeks ago he has had several blood sugar readings in the 60 range (lowest 64). He reports that once BS reaches 80-100 range he will start having a hot feeling and sweaty which if continues to drop will feel light-headed. Patient believes he is on too much diabetic medication currently and asking for it to be reviewed. He is wondering if the glimepiride at lunch time is too much as blood sugars have dropped the most after getting off work in the afternoon. 2. ONSET: 6 weeks ago with the addition of Trulicity 3. BLOOD GLUCOSE: 88 currently 4. USUAL RANGE: Patient reports prior to starting Trulicity FBS would be 140-180 and now with Trulicity FBS 80-100. 5. TYPE 1 or 2: Type 2 6. INSULIN:No 7. DIABETES PILLS:Trulicity 0.75 mg on Tuesday, Metformin 1000 mg twice daily (AM/PM), Glimepiride 2 mg 2 tablets daily at noon, Actos 30 mg daily in the AM 8. OTHER SYMPTOMS: No fever, frequent urination, difficulty breathing, vomiting 9. LOW BLOOD GLUCOSE TREATMENT: Patient reports a small glass of orange juice brings the sugar up quickly to a range that doesn't make him feel symptomatic 10. FOOD: Lunch time for food and Before call for Juice 11. ALONE: No Protocols used: Diabetes - Low Blood [id number] documented in this encounter [facility] 07-17-2024 Telephone encount er Note I would suggest that he stop the glimepiride and just use Trulicity, metformin and Actos for his sugars Cisco Koroma MD [facility] 07-17-2024 Telephone encount er Note Patient calls for low blood sugar readings x 6 weeks since starting on Trulicity. Nurse triage recommends call PCP within 24 hours. Patient requesting medication review as he feels he is on too much diabetic medication. Care advice reviewed with verbalized understanding. Reason for Disposition [1] Blood glucose 70 mg/dL (3.9 mmol/L) or below OR symptomatic, now improved with Care Advice AND [2] cause unknown Answer Assessment - Initial Assessment Questions 1. SYMPTOMS: Sweaty, Hot, Light-headed at times. No symptoms currently. Reports since starting Trulicity 6 weeks ago he has had several blood sugar readings in the 60 range (lowest 64). He reports that once BS reaches 80-100 range he will start having a hot feeling and sweaty which if continues to drop will feel light-headed. Patient believes he is on too much diabetic medication currently and asking for it to be reviewed. He is wondering if the glimepiride at lunch time is too much as blood sugars have dropped the most after getting off work in the afternoon. 2. ONSET: 6 weeks ago with the addition of Trulicity 3. BLOOD GLUCOSE: 88 currently 4. USUAL RANGE: Patient reports prior to starting Trulicity FBS would be 140-180 and now with Trulicity FBS 80-100. 5. TYPE 1 or 2: Type 2 6. INSULIN:No 7. DIABETES PILLS:Trulicity 0.75 mg on Tuesday, Metformin 1000 mg twice daily (AM/PM), Glimepiride 2 mg 2 tablets daily at noon, Actos 30 mg daily in the AM 8. OTHER SYMPTOMS: No fever, frequent urination, difficulty breathing, vomiting 9. LOW BLOOD GLUCOSE TREATMENT: Patient reports a small glass of orange juice brings the sugar up quickly to a range that doesn't make him feel symptomatic 10. FOOD: Lunch time for food and Before call for Juice 11. ALONE: No Protocols used: Diabetes - Low Blood [id number] [facility] 06-06-2024 Instructions Karrie Rosario APRN.[place] [employer] - 06/06/2024 6:10 PM EST Get repeat labs in 3 months Start Trulicity 0.75 mg weekly, may increase mg in 1 month if tolerating. Continue to take all medication as prescribed Work on eating a low carb diet, increase protein, veggies, and get some form of exercise. Monitor tremor, if no improvement recommend consult with Neurology, Dr. Church or Sandra Herring. Follow up in 6 months or sooner as needed. Recommend taking a mens multivitamin or calcium/vitamin D combo documented in this encounter [facility] 06-06-2024 History of Presen t illness Narrative This is a 63 year old male who presents today with: Patient presents with: Follow Up: 3 month follow up and labs HISTORY OF PRESENT ILLNESS: Erick Serna is a 63 year old male. Patient presents with: Follow Up: 3 month follow up and labs 3 month follow up Tremor in the hands bilaterally, has been on going for years. 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 Denies difficulty with gait, no family history of Parkinson's. DM: Reports overall feeling well. Medication side effects: No. Home sugar checks: 130-150's Hypoglycemic spells: No. Watching diet: Trying to work on watching diet but due to work will eat late. Likes sweets. Unexpected weight loss: No. Polyuria, polydipsia: No. Vision Changes: No. Foot lesions or numbness or pain: No. Taking Metformin 1000 mg BID, amaryl 4 mg, 2 tablets daily. At last office visit Increased Actos 30 mg daily. A1C went from 7.7 to 7.6. Due for eye exam. Has noticed some tingling in the tip of the feet at the end of the day and then resolves. Noitces in the morning and evening. Sleep: Using trazodone 100 mg as needed. HTN: Taking Lisinopril 2.5 mg for kidney protection. Migraines: Stable without medication Lipids: Taking atorvastatin 20 mg daily. Watching diet. Colonoscopy: Past due, would like to address at next visit. Vaccines: Would like flu vaccine PAST MEDICAL HISTORY: PAST MEDICAL HISTORY Diagnosis Date Back pain Essential hypertension Hypercholesteremia Other and unspecified hyperlipidemia Type II or unspecified type diabetes mellitus without mention of complication, not stated as uncontrolled PAST SURGICAL HISTORY Procedure Laterality Date APPENDECTOMY 1990 COLONOSCOPY FLX DX W/COLLJ SPEC WHEN PFRMD Colonoscopy PAST SURGICAL HISTORY OF 05/23/2002 VENTERAL HERNIA REPAIR ALLERGIES Patient has no known allergies. MEDICATIONS Current Outpatient Medications Medication Sig pioglitazone (ACTOS) 30 mg tablet Take 1 tablet by mouth once daily. traZODone (DESYREL) 100 mg tablet Take 1 tablet by mouth daily at bedtime. simvastatin (ZOCOR) 20 mg tablet take 1 tablet by mouth daily at bedtime lisinopril 2.5 mg tablet take 1 tablet by mouth once daily glimepiride (AMARYL) 4 mg tablet TAKE 2 TABLETS BY MOUTH DAILY WITH BREAKFAST metFORMIN (GLUCOPHAGE) 1,000 mg tablet take 1 tablet by mouth twice daily with meals SUMAtriptan (IMITREX) 100 mg tablet Take 1 tablet by mouth as needed for migraine headache (see administration instructions). benzonatate (TESSALON PERLES) 100 mg capsule Take 1 capsule by mouth three times daily as needed for cough. (Patient not taking: Reported on 12/29/2022) blood sugar diagnostic (BLOOD GLUCOSE TEST) test strip Test blood sugar(s) 1 times daily. Dx: Type 2 DM - Controlled E11.9 Insulin: No aspirin, enteric coated (ASPIRIN LOW DOSE) 81 mg EC tablet Take 1 tablet by mouth once daily. No current facility-administered medications for this visit. FAMILY HISTORY Problem Relation Age of Onset Diabetes Father No Ocular Disease No Family History Social History Tobacco Use Smoking status: Never Smokeless tobacco: Never Vaping Use Vaping status: Never Used Substance Use Topics Alcohol use: No Drug use: No REVIEW OF SYSTEMS GENERAL: No weight loss, malaise or fevers/chills HEENT: Negative for frequent or significant headaches, No changes in hearing or vision. NECK: Negative for lumps, goiter, pain and significant neck swelling RESPIRATORY: Negative for cough, hemoptysis, wheezing, dyspnea or shortness of breath CARDIOVASCULAR: Negative for chest pain, leg swelling, orthopnea, or palpitations GI: No nausea, vomiting, or diarrhea/constipation. No hematochezia/melena. No heartburn or reflux symptoms. : No history of dysuria, frequency or incontinence MUSCULOSKELETAL: Negative for joint pain or swelling. SKIN: Negative for lesions, rash, and itching ENDOCRINE: Negative for cold or heat intolerance, polyuria, polydipsia and goiter NEURO: + Tremor MOOD: Negative for depression, anxiety, or suicidal ideation. EXAM: BP 128/80 Pulse 84 Resp 16 Wt 78.1 kg (172 lb 2.9 oz) SpO2 96% BMI 24.01 kg/m PHYSICAL EXAM: General Appearance: Well appearing, alert, in no acute distress, well-hydrated, well nourished.. Skin: Skin color, texture, turgor normal, no suspicious rashes or lesions. Head: Normocephalic, no masses, lesions, tenderness or abnormalities. Eyes: Anicteric sclera. Pupils are equally round and reactive to light. Extraocular movements are intact. . Lungs: Lungs clear to auscultation. No wheezing, rhonchi, rales.. Heart: RRR without murmur, gallop, or rubs. No ectopy. Extremities: No deformities, edema, skin discoloration, clubbing or cyanosis. Good capillary refill. . Musculoskeletal: No joint swelling, deformity, or tenderness. Peripheral Pulses: Normal, Capillary refill <2secs, strong peripheral pulses, Pulses palpable. Neurologic: Gait normal. Reflexes normal and symmetric. Sensation grossly intact., Noticeable tremor in bilateral hands with intentional movements. 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 Latest Ref Rng 06/02/2024 Protein, Total 6.3 - 8.0 g/dL 6.5 Albumin 3.9 - 4.9 g/dL 4.2 Calcium 8.5 - 10.2 mg/dL 8.1 (L) Bilirubin, Total 0.2 - 1.3 mg/dL 1.0 Alkaline Phosphatase 38 - 113 U/L 70 AST 14 - 40 U/L 22 ALT 10 - 54 U/L 18 Glucose 74 - 99 mg/dL 147 (H) BUN 9 - 24 mg/dL 21 Creatinine 0.73 - 1.22 mg/dL 1.19 Sodium 136 - 144 mmol/L 142 Potassium 3.7 - 5.1 mmol/L 4.7 Chloride 98 - 107 mmol/L 106 CO2 22 - 30 mmol/L 23 Anion Gap 8 - 15 mmol/L 13 eGFR >=60 mL/min/1.73m 69 Cholesterol, Total <200 mg/dL 155 Triglyceride <150 mg/dL 69 HDL Cholesterol >39 mg/dL 53 Non HDL Cholesterol <130 mg/dL 102 Fasting Time hrs 13 VLDL Cholesterol <30 mg/dL 14 TC:HDL Ratio <5.10 2.92 LDL Cholesterol <100 mg/dL 88 LDL:HDL Ratio <2.54 1.66 Creatinine, Ur Random (UCRR) 20.0 - 300.0 mg/dL 137.6 Albumin, Urine Random mg/L 16.5 Albumin/Creat Ratio <30 mg/g 12 Hemoglobin A1C 4.3 - 5.6 % 7.6 (H) Estimated Average Glucose mg/dL 171 Legend: (L) Low (H) High ASSESSMENT/PLAN: 1. Tremor - ICD9: 781.0, ICD10: R25.1 (primary diagnosis) - Denied wanting to start medication at this time. - Recommend consult with neurology - CONSULT TO NEUROLOGY 2. Controlled type 2 diabetes mellitus without complication, without long-term current use of insulin (HCC) - ICD9: 250.00, ICD10: E11.9 - Improving control - Continue current medications - Start dulaglutide (Trulicity) - Counseled on healthy diet and regular exercise - Get repeat labs in 3 months. - DULAGLUTIDE 0.75 MG/0.5 ML SUBCUTANEOUS PEN INJECTOR - COMPREHENSIVE METABOLIC PANEL - HEMOGLOBIN A1C 3. Hypertension, essential - ICD9: 401.9, ICD10: I10 - Controlled - Continue current medications - Recommend home blood pressure monitoring, to bring results to next visit - Encouraged sodium restriction, DASH or Mediterranean diet - Recommend regular aerobic exercise 4. Mixed hyperlipidemia - ICD9: 272.2, ICD10: E78.2 - Controlled - Counseled on healthy diet and regular exercise 5. Migraine without aura, intractable, without status migrainosus - ICD9: 346.11, ICD10: G43.019 - Stable without medication 6. Difficulty sleeping - ICD9: 780.50, ICD10: G47.9 - Stable, continue to use Trazodone prn. 7. Encounter for immunization - ICD9: V03.89, ICD10: Z23 - VIS provided. - INFLUENZA VACCINE, AGE 6MO-64YR, TRIVALENT (AFLURIA, FLULAVAL, FLUVIRIN, FLUZONE) Follow-up in 6 months or sooner pending test results. Discussed treatment plan and patient voices understanding. Patient's questions answered appropriately. Medications and potential side effects were discussed and patient voices understanding. Karrie Rosario APRN.JULIO This note was partially generated using [employer] voice recognition system. Note was reviewed for accuracy. There may be minor misspellings or grammar miscues with [employer] voice recognition. documented in this encounter [facility] 06-06-2024 Note HNO ID: [id number] Author: KARRIE ROSARIO APRN.JULIO Service: ? Author Type: Nurse Practitioner Type: Progress Notes Filed: 06/06/2024 18:35 Note Text: This is a 63 year old male who presents today with: Patient presents with: Follow Up: 3 month follow up and labs HISTORY OF PRESENT ILLNESS: Erick Serna is a 63 year old male. Patient presents with: Follow Up: 3 month follow up and labs 3 month follow up Tremor in the hands bilaterally, has been on going for years. 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 Denies difficulty with gait, no family history of Parkinson's. DM: Reports overall feeling well. Medication side effects: No. Home sugar checks: 130-150's Hypoglycemic spells: No. Watching diet: Trying to work on watching diet but due to work will eat late. Likes sweets. Unexpected weight loss: No. Polyuria, polydipsia: No. Vision Changes: No. Foot lesions or numbness or pain: No. Taking Metformin 1000 mg BID, amaryl 4 mg, 2 tablets daily. At last office visit Increased Actos 30 mg daily. A1C went from 7.7 to 7.6. Due for eye exam. Has noticed some tingling in the tip of the feet at the end of the day and then resolves. Noitces in the morning and evening. Sleep: Using trazodone 100 mg as needed. HTN: Taking Lisinopril 2.5 mg for kidney protection. Migraines: Stable without medication Lipids: Taking atorvastatin 20 mg daily. Watching diet. Colonoscopy: Past due, would like to address at next visit. Vaccines: Would like flu vaccine PAST MEDICAL HISTORY: PAST MEDICAL HISTORY Diagnosis Date Back pain Essential hypertension Hypercholesteremia Other and unspecified hyperlipidemia Type II or unspecified type diabetes mellitus without mention of complication, not stated as uncontrolled PAST SURGICAL HISTORY Procedure Laterality Date APPENDECTOMY 1990 COLONOSCOPY FLX DX W/COLLJ SPEC WHEN PFRMD Colonoscopy PAST SURGICAL HISTORY OF 05/23/2002 VENTERAL HERNIA REPAIR ALLERGIES Patient has no known allergies. MEDICATIONS Current Outpatient Medications Medication Sig pioglitazone (ACTOS) 30 mg tablet Take 1 tablet by mouth once daily. traZODone (DESYREL) 100 mg tablet Take 1 tablet by mouth daily at bedtime. simvastatin (ZOCOR) 20 mg tablet take 1 tablet by mouth daily at bedtime lisinopril 2.5 mg tablet take 1 tablet by mouth once daily glimepiride (AMARYL) 4 mg tablet TAKE 2 TABLETS BY MOUTH DAILY WITH BREAKFAST metFORMIN (GLUCOPHAGE) 1,000 mg tablet take 1 tablet by mouth twice daily with meals SUMAtriptan (IMITREX) 100 mg tablet Take 1 tablet by mouth as needed for migraine headache (see administration instructions). benzonatate (TESSALON PERLES) 100 mg capsule Take 1 capsule by mouth three times daily as needed for cough. (Patient not taking: Reported on 12/29/2022) blood sugar diagnostic (BLOOD GLUCOSE TEST) test strip Test blood sugar(s) 1 times daily. Dx: Type 2 DM - Controlled E11.9 Insulin: No aspirin, enteric coated (ASPIRIN LOW DOSE) 81 mg EC tablet Take 1 tablet by mouth once daily. No current facility-administered medications for this visit. FAMILY HISTORY Problem Relation Age of Onset Diabetes Father No Ocular Disease No Family History Social History Tobacco Use Smoking status: Never Smokeless tobacco: Never Vaping Use Vaping status: Never Used Substance Use Topics Alcohol use: No Drug use: No REVIEW OF SYSTEMS GENERAL: No weight loss, malaise or fevers/chills HEENT: Negative for frequent or significant headaches, No changes in hearing or vision. NECK: Negative for lumps, goiter, pain and significant neck swelling RESPIRATORY: Negative for cough, hemoptysis, wheezing, dyspnea or shortness of breath CARDIOVASCULAR: Negative for chest pain, leg swelling, orthopnea, or palpitations GI: No nausea, vomiting, or diarrhea/constipation. No hematochezia/melena. No heartburn or reflux symptoms. : No history of dysuria, frequency or incontinence MUSCULOSKELETAL: Negative for joint pain or swelling. SKIN: Negative for lesions, rash, and itching ENDOCRINE: Negative for cold or heat intolerance, polyuria, polydipsia and goiter NEURO: + Tremor MOOD: Negative for depression, anxiety, or suicidal ideation. EXAM: BP 128/80 Pulse 84 Resp 16 Wt 78.1 kg (172 lb 2.9 oz) SpO2 96% BMI 24.01 kg/m? PHYSICAL EXAM: General Appearance: Well appearing, alert, in no acute distress, well-hydrated, well nourished.. Skin: Skin color, texture, turgor normal, no suspicious rashes or lesions. Head: Normocephalic, no masses, lesions, tenderness or abnormalities. Eyes: Anicteric sclera. Pupils are equally round and reactive to light. Extraocular movements are intact. . Lungs: Lungs clear to auscultation. No wheezing, rhonchi, rales.. Heart: RRR without murmur, gallop, or rubs. No ectopy. Extremities: No deformities, edema, skin discoloration, clubbing or cyanosis. Good capilla (more content not included)... [facility] 02-08-2024 Instructions Karrie Rosario APRN.CNP - 02/08/2024 4:18 PM EDT Get repeat fasting labs in 3 months prior to next visit Increase Actos 30 mg daily, continue to take all other medications as prescribed. Continue to eat low carb diet and stay active Due for Eye exam Increase Trazodone 100 mg at bedtime as needed to help with sleep. Follow up in 3 months or sooner as needed. documented in this encounter [facility] 02-08-2024 History of Presen t illness Narrative This is a 63 year old male who presents today with: Patient presents with: Follow Up: 3 month follow up with labs HISTORY OF PRESENT ILLNESS: Erick Serna is a 63 year old male. Patient presents with: Follow Up: 3 month follow up with labs 3 month follow up LABS PENDING DM: Reports overall feeling well. Medication side effects: No. Home sugar checks: 130-150's Hypoglycemic spells: No. Watching diet: Trying to work on watching diet but due to work will eat late. Likes sweets. Unexpected weight loss: No. Polyuria, polydipsia: No. Vision Changes: No. Foot lesions or numbness or pain: No. Taking Metformin 1000 mg BID, amaryl 4 mg, 2 tablets daily. At last office visit started on Actos 15 mg daily. A1C went from 8.6 to 7.7. Due for eye exam. Has noticed some tingling in the tip of the feet at the end of the day and then resolves. Noitces in the morning and evening. Sleep: Some difficulty sleeping, over thinking. Refers that he has had some increased stress at work. Denies any increased sadness, anxiety, or SI/Hi. Has tried Tylenol PM but wasn't sure if he could take this care home. 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 Stopped taking trazodone-reports it was not helping. HTN: Taking Lisinopril 2.5 mg for kidney protection. Migraines: Using Imitrex 100 mg prn. Stable-not taking Imitrex. Lipids: Taking atorvastatin 20 mg daily. Watching diet. Colonoscopy: Past due, would like to address at next visit. PAST MEDICAL HISTORY: PAST MEDICAL HISTORY Diagnosis Date Back pain Essential hypertension Hypercholesteremia Other and unspecified hyperlipidemia Type II or unspecified type diabetes mellitus without mention of complication, not stated as uncontrolled PAST SURGICAL HISTORY Procedure Laterality Date APPENDECTOMY 1990 COLONOSCOPY FLX DX W/COLLJ SPEC WHEN PFRMD Colonoscopy PAST SURGICAL HISTORY OF 05/23/2002 VENTERAL HERNIA REPAIR ALLERGIES Patient has no known allergies. MEDICATIONS Current Outpatient Medications Medication Sig pioglitazone (ACTOS) 15 mg tablet Take 1 tablet by mouth once daily. traZODone (DESYREL) 50 mg tablet Take 1 tablet by mouth daily at bedtime. simvastatin (ZOCOR) 20 mg tablet take 1 tablet by mouth daily at bedtime lisinopril 2.5 mg tablet take 1 tablet by mouth once daily glimepiride (AMARYL) 4 mg tablet TAKE 2 TABLETS BY MOUTH DAILY WITH BREAKFAST metFORMIN (GLUCOPHAGE) 1,000 mg tablet take 1 tablet by mouth twice daily with meals SUMAtriptan (IMITREX) 100 mg tablet Take 1 tablet by mouth as needed for migraine headache (see administration instructions). benzonatate (TESSALON PERLES) 100 mg capsule Take 1 capsule by mouth three times daily as needed for cough. (Patient not taking: Reported on 12/29/2022) blood sugar diagnostic (BLOOD GLUCOSE TEST) test strip Test blood sugar(s) 1 times daily. Dx: Type 2 DM - Controlled E11.9 Insulin: No aspirin, enteric coated (ASPIRIN LOW DOSE) 81 mg EC tablet Take 1 tablet by mouth once daily. No current facility-administered medications for this visit. FAMILY HISTORY Problem Relation Age of Onset Diabetes Father No Ocular Disease No Family History Social History Tobacco Use Smoking status: Never Smokeless tobacco: Never Vaping Use Vaping Use: Never used Substance Use Topics Alcohol use: No Drug use: No REVIEW OF SYSTEMS GENERAL: No weight loss, malaise or fevers/chills HEENT: Negative for frequent or significant headaches, No changes in hearing or vision. NECK: Negative for lumps, goiter, pain and significant neck swelling RESPIRATORY: Negative for cough, hemoptysis, wheezing, dyspnea or shortness of breath CARDIOVASCULAR: Negative for chest pain, leg swelling, orthopnea, or palpitations GI: No nausea, vomiting, or diarrhea/constipation. No hematochezia/melena. No heartburn or reflux symptoms. : No history of dysuria, frequency or incontinence MUSCULOSKELETAL: Negative for joint pain or swelling. SKIN: Negative for lesions, rash, and itching ENDOCRINE: Negative for cold or heat intolerance, polyuria, polydipsia and goiter NEURO: No history of headaches, syncope, paralysis, seizures or tremors MOOD: Negative for depression, anxiety, or suicidal ideation. EXAM: BP 120/89 Pulse 86 Resp 16 Wt 76.7 kg (169 lb) SpO2 97% BMI 23.57 kg/m PHYSICAL EXAM: General Appearance: Well appearing, alert, in no acute distress, well-hydrated, well nourished.. Skin: Skin color, texture, turgor normal, no suspicious rashes or lesions. Head: Normocephalic, no masses, lesions, tenderness or abnormalities. Eyes: Anicteric sclera. Extraocular movements are intact. . Lungs: Lungs clear to auscultation. No wheezing, rhonchi, rales.. Heart: RRR without murmur, gallop, or rubs. No ectopy. Extremities: No deformities, edema, skin discoloration, clubbing or cyanosis. Good capillary refill. . Peripheral Pulses: Normal, Capillary refill <2secs, strong peripheral pulses, Pulses palpable. Neurologic: Gait normal. Sensation grossly intact. Behavioral Health Screening PHQ-2 Score: 0 (Lower risk for depression) MAMI-2 Score: 0 (Lower risk for anxiety) Recommendation: no further intervention at this time ASSESSMENT/PLAN: 1. Controlled type 2 diabetes mellitus without complication, without long-term current use of insulin (HCC) - ICD9: 250.00, ICD10: E11.9 (primary diagnosis) - Uncontrolled - Continue current medications - Increase pioglitazone - Counseled on healthy diet and regular exercise - Discussed need for and benefit of weight loss. BMI 23.57 kg/(m^2) - PIOGLITAZONE 30 MG TABLET - COMPREHENSIVE METABOLIC PANEL - HEMOGLOBIN A1C - ALBUMIN/CREATININE RATIO, URINE 2. Hypertension, essential - ICD9: 401.9, ICD10: I10 - Controlled - Continue current medications - Recommend home blood pressure monitoring, to bring results to next visit - Encouraged sodium restriction, DASH or Mediterranean diet - Recommend regular aerobic exercise 3. Mixed hyperlipidemia - ICD9: 272.2, ICD10: E78.2 - Control undetermined, due for labs - Continue current medications - Counseled on healthy diet and regular exercise - LIPID PANEL BASIC 4. Migraine without aura, intractable, without status migrainosus - ICD9: 346.11, ICD10: G43.019 - Stable, continue to use Imitrex as needed 5. Difficulty sleeping - ICD9: 780.50, ICD10: G47.9 - Increase Trazodone to 100 mg PRN - TRAZODONE 100 MG TABLET Follow up in 3 months or sooner as needed Discussed treatment plan and patient voices understanding. Patient's questions answered appropriately. Medications and potential side effects were discussed and patient voices understanding. Karrie Rosario APRN.CNP This note was partially generated using [employer] voice recognition system. Note was reviewed for accuracy. There may be minor misspellings or grammar miscues with [employer] voice recognition. documented in this encounter [facility] 02-08-2024 Note HNO ID: [id number] Author: KARRIE ROSARIO APRN.CNP Service: ? Author Type: Nurse Practitioner Type: Progress Notes Filed: 02/08/2024 16:30 Note Text: This is a 63 year old male who presents today with: Patient presents with: Follow Up: 3 month follow up with labs HISTORY OF PRESENT ILLNESS: Erick Serna is a 63 year old male. Patient presents with: Follow Up: 3 month follow up with labs 3 month follow up LABS PENDING DM: Reports overall feeling well. Medication side effects: No. Home sugar checks: 130-150's Hypoglycemic spells: No. Watching diet: Trying to work on watching diet but due to work will eat late. Likes sweets. Unexpected weight loss: No. Polyuria, polydipsia: No. Vision Changes: No. Foot lesions or numbness or pain: No. Taking Metformin 1000 mg BID, amaryl 4 mg, 2 tablets daily. At last office visit started on Actos 15 mg daily. A1C went from 8.6 to 7.7. Due for eye exam. Has noticed some tingling in the tip of the feet at the end of the day and then resolves. Noitces in the morning and evening. Sleep: Some difficulty sleeping, over thinking. Refers that he has had some increased stress at work. Denies any increased sadness, anxiety, or SI/Hi. 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 Stopped taking trazodone-reports it was not helping. HTN: Taking Lisinopril 2.5 mg for kidney protection. Migraines: Using Imitrex 100 mg prn. Stable-not taking Imitrex. Lipids: Taking atorvastatin 20 mg daily. Watching diet. Colonoscopy: Past due, would like to address at next visit. PAST MEDICAL HISTORY: PAST MEDICAL HISTORY Diagnosis Date Back pain Essential hypertension Hypercholesteremia Other and unspecified hyperlipidemia Type II or unspecified type diabetes mellitus without mention of complication, not stated as uncontrolled PAST SURGICAL HISTORY Procedure Laterality Date APPENDECTOMY 1990 COLONOSCOPY FLX DX W/COLLJ SPEC WHEN PFRMD Colonoscopy PAST SURGICAL HISTORY OF 05/23/2002 VENTERAL HERNIA REPAIR ALLERGIES Patient has no known allergies. MEDICATIONS Current Outpatient Medications Medication Sig pioglitazone (ACTOS) 15 mg tablet Take 1 tablet by mouth once daily. traZODone (DESYREL) 50 mg tablet Take 1 tablet by mouth daily at bedtime. simvastatin (ZOCOR) 20 mg tablet take 1 tablet by mouth daily at bedtime lisinopril 2.5 mg tablet take 1 tablet by mouth once daily glimepiride (AMARYL) 4 mg tablet TAKE 2 TABLETS BY MOUTH DAILY WITH BREAKFAST metFORMIN (GLUCOPHAGE) 1,000 mg tablet take 1 tablet by mouth twice daily with meals SUMAtriptan (IMITREX) 100 mg tablet Take 1 tablet by mouth as needed for migraine headache (see administration instructions). benzonatate (TESSALON PERLES) 100 mg capsule Take 1 capsule by mouth three times daily as needed for cough. (Patient not taking: Reported on 12/29/2022) blood sugar diagnostic (BLOOD GLUCOSE TEST) test strip Test blood sugar(s) 1 times daily. Dx: Type 2 DM - Controlled E11.9 Insulin: No aspirin, enteric coated (ASPIRIN LOW DOSE) 81 mg EC tablet Take 1 tablet by mouth once daily. No current facility-administered medications for this visit. FAMILY HISTORY Problem Relation Age of Onset Diabetes Father No Ocular Disease No Family History Social History Tobacco Use Smoking status: Never Smokeless tobacco: Never Vaping Use Vaping Use: Never used Substance Use Topics Alcohol use: No Drug use: No REVIEW OF SYSTEMS GENERAL: No weight loss, malaise or fevers/chills HEENT: Negative for frequent or significant headaches, No changes in hearing or vision. NECK: Negative for lumps, goiter, pain and significant neck swelling RESPIRATORY: Negative for cough, hemoptysis, wheezing, dyspnea or shortness of breath CARDIOVASCULAR: Negative for chest pain, leg swelling, orthopnea, or palpitations GI: No nausea, vomiting, or diarrhea/constipation. No hematochezia/melena. No heartburn or reflux symptoms. : No history of dysuria, frequency or incontinence MUSCULOSKELETAL: Negative for joint pain or swelling. SKIN: Negative for lesions, rash, and itching ENDOCRINE: Negative for cold or heat intolerance, polyuria, polydipsia and goiter NEURO: No history of headaches, syncope, paralysis, seizures or tremors MOOD: Negative for depression, anxiety, or suicidal ideation. EXAM: BP 120/89 Pulse 86 Resp 16 Wt 76.7 kg (169 lb) SpO2 97% BMI 23.57 kg/m? PHYSICAL EXAM: General Appearance: Well appearing, alert, in no acute distress, well-hydrated, well nourished.. Skin: Skin color, texture, turgor normal, no suspicious rashes or lesions. Head: Normocephalic, no masses, lesions, tenderness or abnormalities. Eyes: Anicteric sclera. Extraocular movements are intact. . Lungs: Lungs clear to auscultation. No wheezing, rhonchi, rales.. Heart: RRR without murmur, gallop, or ru (more content not included)... [facility] 11-09-2023 History of Presen t illness Narrative This is a 62 year old male who presents today with: Patient presents with: Follow Up: 3 month follow up HISTORY OF PRESENT ILLNESS: Erick Serna is a 62 year old male. Patient presents with: Follow Up: 3 month follow up 3 month follow up DM: Reports overall feeling well. Medication side effects: No. Home sugar checks: Has not been checking Hypoglycemic spells: No. Watching diet: Trying to work on watching diet but due to work will eat late. Likes sweets. Unexpected weight loss: No. Polyuria, polydipsia: No. Vision Changes: No. Foot lesions or numbness or pain: No. Taking Metformin 1000 mg BID, amaryl 4 mg, 2 tablets daily. A1C went from 7.3 to 8.6 Sleep: Some difficulty sleeping, over thinking. Refers that he has had some increased stress at work. Denies any increased sadness, anxiety, or SI/Hi. Has tried Tylenol PM but wasn't sure if he could take this care home. HTN: Taking Lisinopril 2.5 mg for kidney protection. Migraines: Using Imitrex 100 mg prn. Stable. Lipids: Taking atorvastatin 20 mg daily. Watching diet. PAST MEDICAL HISTORY: PAST MEDICAL HISTORY Diagnosis Date Back pain Essential hypertension Hypercholesteremia Other and unspecified hyperlipidemia Type II or unspecified type diabetes mellitus without mention of complication, not stated as uncontrolled PAST SURGICAL HISTORY Procedure Laterality Date APPENDECTOMY 1990 COLONOSCOPY FLX DX W/COLLJ SPEC WHEN PFRMD Colonoscopy PAST SURGICAL HISTORY OF 05/23/2002 VENTERAL HERNIA REPAIR ALLERGIES Patient has no known allergies. MEDICATIONS Current Outpatient Medications Medication Sig simvastatin (ZOCOR) 20 mg tablet take 1 tablet by mouth daily at bedtime lisinopril 2.5 mg tablet take 1 tablet by mouth once daily glimepiride (AMARYL) 4 mg tablet TAKE 2 TABLETS BY MOUTH DAILY WITH BREAKFAST metFORMIN (GLUCOPHAGE) 1,000 mg tablet take 1 tablet by mouth twice daily with meals SUMAtriptan (IMITREX) 100 mg tablet Take 1 tablet by mouth as needed for migraine headache (see administration instructions). benzonatate (TESSALON PERLES) 100 mg capsule Take 1 capsule by mouth three times daily as needed for cough. (Patient not taking: Reported on 12/29/2022) blood sugar diagnostic (BLOOD GLUCOSE TEST) test strip Test blood sugar(s) 1 times daily. Dx: Type 2 DM - Controlled E11.9 Insulin: No aspirin, enteric coated (ASPIRIN LOW DOSE) 81 mg EC tablet Take 1 tablet by mouth once daily. No current facility-administered medications for this visit. FAMILY HISTORY Problem Relation Age of Onset Diabetes Father No Ocular Disease No Family History Social History Tobacco Use Smoking status: Never Smokeless tobacco: Never Vaping Use Vaping Use: Never used Substance Use Topics Alcohol use: No Drug use: No REVIEW OF SYSTEMS GENERAL: No weight loss, malaise or fevers/chills HEENT: Negative for frequent or significant headaches, No changes in hearing or vision. NECK: Negative for lumps, goiter, pain and significant neck swelling RESPIRATORY: Negative for cough, hemoptysis, wheezing, dyspnea or shortness of breath CARDIOVASCULAR: Negative for chest pain, leg swelling, orthopnea, or palpitations GI: No nausea, vomiting, or diarrhea/constipation. No hematochezia/melena. No heartburn or reflux symptoms. : No history of dysuria, frequency or incontinence MUSCULOSKELETAL: Negative for joint pain or swelling. SKIN: Negative for lesions, rash, and itching ENDOCRINE: Negative for cold or heat intolerance, polyuria, polydipsia and goiter NEURO: No history of headaches, syncope, paralysis, seizures or tremors MOOD: Negative for depression, anxiety, or suicidal ideation. + Difficulty Sleeping EXAM: BP 110/70 Pulse 82 Resp 16 Wt 79.8 kg (176 lb) SpO2 97% BMI 24.55 kg/m PHYSICAL EXAM: General Appearance: Well appearing, alert, in no acute distress, well-hydrated, well nourished. Skin: Skin color, texture, turgor normal, no suspicious rashes or lesions. Head: Normocephalic, no masses, lesions, tenderness or abnormalities. Eyes: Anicteric sclera. Extraocular movements are intact. Lungs: Lungs clear to auscultation. No wheezing, rhonchi, rales. Heart: RRR without murmur, gallop, or rubs. No ectopy. Extremities: No deformities, edema, skin discoloration, clubbing or cyanosis. Good capillary refill. Peripheral Pulses: Normal, Capillary refill <2secs, strong peripheral pulses, Pulses palpable. Neurologic: Gait normal. Reflexes normal and symmetric. Sensation grossly intact. Mood: Pleasant, good eye contact, engaged. Latest Ref Rng 11/05/2023 Protein, Total 6.3 - 8.0 g/dL 6.5 Albumin 3.9 - 4.9 g/dL 4.1 Calcium 8.5 - 10.2 mg/dL 8.6 Bilirubin, Total 0.2 - 1.3 mg/dL 1.3 Alkaline Phosphatase 38 - 113 U/L 66 AST 14 - 40 U/L 16 ALT 10 - 54 U/L 12 Glucose 74 - 99 mg/dL 198 (H) BUN 9 - 24 mg/dL 19 Creatinine 0.73 - 1.22 mg/dL 1.06 Sodium 136 - 144 mmol/L 138 Potassium 3.7 - 5.1 mmol/L 5.0 Chloride 97 - 105 mmol/L 102 CO2 22 - 30 mmol/L 25 Anion Gap 9 - 18 mmol/L 11 eGFR >=60 mL/min/1.73m 79 Cholesterol, Total <200 mg/dL 165 Triglyceride <150 mg/dL 90 HDL Cholesterol >39 mg/dL 51 Non HDL Cholesterol <130 mg/dL 114 Fasting Time hrs 12 VLDL Cholesterol <30 mg/dL 18 TC:HDL Ratio <5.10 3.24 LDL Cholesterol <100 mg/dL 96 LDL:HDL Ratio <2.54 1.88 Hemoglobin A1C 4.3 - 5.6 % 8.6 (H) Estimated Average Glucose mg/dL 200 Legend: (H) High ASSESSMENT/PLAN: 1. Controlled type 2 diabetes mellitus without complication, without long-term current use of insulin (HCC) - ICD9: 250.00, ICD10: E11.9 (primary diagnosis) - Worsening control - Continue current medications - Start Actos 15 mg daily - Counseled on healthy diet and regular exercise - Discussed need for and benefit of weight loss. BMI 24.55 kg/(m^2) - Get repeat labs in 3 months prior to next OV. - PIOGLITAZONE 15 MG TABLET - HEMOGLOBIN A1C - COMPREHENSIVE METABOLIC PANEL 2. Hypertension, essential - ICD9: 401.9, ICD10: I10 - Controlled - Continue current medications - Recommend home blood pressure monitoring, to bring results to next visit - Encouraged sodium restriction, DASH or Mediterranean diet - Recommend regular aerobic exercise 3. Mixed hyperlipidemia - ICD9: 272.2, ICD10: E78.2 - Controlled - Counseled on healthy diet and regular exercise 4. Migraine without aura, intractable, without status migrainosus - ICD9: 346.11, ICD10: G43.019 - Stable 5. Difficulty sleeping - ICD9: 780.50, ICD10: G47.9 - May try Trazodone 1/2 to 1 tablet prior to bed. - Medication education and instructions provided. - TRAZODONE 50 MG TABLET Follow-up in 3 months or sooner as needed. Discussed treatment plan and patient voices understanding. Patient's questions answered appropriately. Medications and potential side effects were discussed and patient voices understanding. Karrie Rosario APRN.JULIO This note was partially generated using [employer] voice recognition system. Note was reviewed for accuracy. There may be minor misspellings or grammar miscues with [employer] voice recognition. documented in this encounter [facility] 11-09-2023 Note HNO ID: [id number] Author: KARRIE ROSARIO APRN.JULIO Service: ? Author Type: Nurse Practitioner Type: Progress Notes Filed: 11/09/2023 17:39 Note Text: This is a 62 year old male who presents today with: Patient presents with: Follow Up: 3 month follow up HISTORY OF PRESENT ILLNESS: Erick Serna is a 62 year old male. Patient presents with: Follow Up: 3 month follow up 3 month follow up DM: Reports overall feeling well. Medication side effects: No. Home sugar checks: Has not been checking Hypoglycemic spells: No. Watching diet: Trying to work on watching diet but due to work will eat late. Likes sweets. Unexpected weight loss: No. Polyuria, polydipsia: No. Vision Changes: No. Foot lesions or numbness or pain: No. Taking Metformin 1000 mg BID, amaryl 4 mg, 2 tablets daily. A1C went from 7.3 to 8.6 Sleep: Some difficulty sleeping, over thinking. Refers that he has had some increased stress at work. Denies any increased sadness, anxiety, or SI/Hi. Has tried Tylenol PM but wasn't sure if he could take this care home. HTN: Taking Lisinopril 2.5 mg for kidney protection. Migraines: Using Imitrex 100 mg prn. Stable. Lipids: Taking atorvastatin 20 mg daily. Watching diet. PAST MEDICAL HISTORY: PAST MEDICAL HISTORY Diagnosis Date Back pain Essential hypertension Hypercholesteremia Other and unspecified hyperlipidemia Type II or unspecified type diabetes mellitus without mention of complication, not stated as uncontrolled PAST SURGICAL HISTORY Procedure Laterality Date APPENDECTOMY 1990 COLONOSCOPY FLX DX W/COLLJ SPEC WHEN PFRMD Colonoscopy PAST SURGICAL HISTORY OF 05/23/2002 VENTERAL HERNIA REPAIR ALLERGIES Patient has no known allergies. MEDICATIONS Current Outpatient Medications Medication Sig simvastatin (ZOCOR) 20 mg tablet take 1 tablet by mouth daily at bedtime lisinopril 2.5 mg tablet take 1 tablet by mouth once daily glimepiride (AMARYL) 4 mg tablet TAKE 2 TABLETS BY MOUTH DAILY WITH BREAKFAST metFORMIN (GLUCOPHAGE) 1,000 mg tablet take 1 tablet by mouth twice daily with meals SUMAtriptan (IMITREX) 100 mg tablet Take 1 tablet by mouth as needed for migraine headache (see administration instructions). benzonatate (TESSALON PERLES) 100 mg capsule Take 1 capsule by mouth three times daily as needed for cough. (Patient not taking: Reported on 12/29/2022) blood sugar diagnostic (BLOOD GLUCOSE TEST) test strip Test blood sugar(s) 1 times daily. Dx: Type 2 DM - Controlled E11.9 Insulin: No aspirin, enteric coated (ASPIRIN LOW DOSE) 81 mg EC tablet Take 1 tablet by mouth once daily. No current facility-administered medications for this visit. FAMILY HISTORY Problem Relation Age of Onset Diabetes Father No Ocular Disease No Family History Social History Tobacco Use Smoking status: Never Smokeless tobacco: Never Vaping Use Vaping Use: Never used Substance Use Topics Alcohol use: No Drug use: No REVIEW OF SYSTEMS GENERAL: No weight loss, malaise or fevers/chills HEENT: Negative for frequent or significant headaches, No changes in hearing or vision. NECK: Negative for lumps, goiter, pain and significant neck swelling RESPIRATORY: Negative for cough, hemoptysis, wheezing, dyspnea or shortness of breath CARDIOVASCULAR: Negative for chest pain, leg swelling, orthopnea, or palpitations GI: No nausea, vomiting, or diarrhea/constipation. No hematochezia/melena. No heartburn or reflux symptoms. : No history of dysuria, frequency or incontinence MUSCULOSKELETAL: Negative for joint pain or swelling. SKIN: Negative for lesions, rash, and itching ENDOCRINE: Negative for cold or heat intolerance, polyuria, polydipsia and goiter NEURO: No history of headaches, syncope, paralysis, seizures or tremors MOOD: Negative for depression, anxiety, or suicidal ideation. + Difficulty Sleeping EXAM: BP 110/70 Pulse 82 Resp 16 Wt 79.8 kg (176 lb) SpO2 97% BMI 24.55 kg/m? PHYSICAL EXAM: General Appearance: Well appearing, alert, in no acute distress, well-hydrated, well nourished. Skin: Skin color, texture, turgor normal, no suspicious rashes or lesions. Head: Normocephalic, no masses, lesions, tenderness or abnormalities. Eyes: Anicteric sclera. Extraocular movements are intact. Lungs: Lungs clear to auscultation. No wheezing, rhonchi, rales. Heart: RRR without murmur, gallop, or rubs. No ectopy. Extremities: No deformities, edema, skin discoloration, clubbing or cyanosis. Good capillary refill. Peripheral Pulses: Normal, Capillary refill <2secs, strong peripheral pulses, Pulses palpable. Neurologic: Gait normal. Reflexes normal and symmetric. Sensation grossly intact. Mood: Pleasant, good eye contact, engaged. Latest Ref Rn 11/05/2023 Protein, Total 6.3 - 8.0 g/dL 6.5 Albumin 3.9 - 4.9 g/dL 4.1 Calcium 8.5 - 10.2 mg/dL 8.6 Bilirubin, Total 0.2 - 1.3 mg/dL 1.3 Alkaline Phosphatase 38 - 113 U/ (more content not included)... [facility] 11-09-2023 Instructions Karrie Rosario APRN.[place] MACHINE OPERATOR - 11/09/2023 3:35 PM EDT Start Actos 15 mg daily Continue to take all medication as prescribed. Work on eating a low carb diet. Increase protein, veggies, and stay active. May try Trazodone 1/2 tab-1 tablet 30 minutes prior to bed. Stay hydrated Get repeat labs in 3 months prior to next visit. documented in this encounter [facility] 10-17-2023 Miscellaneous Notes Formattin g of this note is different from the original. The following approved medication requests have been transmitted electronically. Requested Prescriptions Pending Prescriptions Disp Refills simvastatin (ZOCOR) 20 mg tablet [Pharmacy Med Name: simvastatin 20 mg tablet] 90 tablet 3 Sig: take 1 tablet by mouth daily at bedtime lisinopril 2.5 mg tablet 90 tablet 3 Sig: take 1 tablet by mouth once daily glimepiride (AMARYL) 4 mg tablet [Pharmacy Med Name: glimepiride 4 mg tablet] 180 tablet 3 Sig: TAKE 2 TABLETS BY MOUTH DAILY WITH BREAKFAST metFORMIN (GLUCOPHAGE) 1,000 mg tablet [Pharmacy Med Name: metformin 1,000 mg tablet] 180 tablet 3 Sig: take 1 tablet by mouth twice daily with meals Cal Ellison APRN.JULIO Patient has been identified by name and date of : Yes Patient phones for refill(s): Requested Prescriptions Pending Prescriptions Disp Refills simvastatin (ZOCOR) 20 mg tablet [Pharmacy Med Name: simvastatin 20 mg tablet] 90 tablet 3 Sig: take 1 tablet by mouth daily at bedtime lisinopril 2.5 mg tablet 90 tablet 3 Sig: take 1 tablet by mouth once daily glimepiride (AMARYL) 4 mg tablet [Pharmacy Med Name: glimepiride 4 mg tablet] 180 tablet 3 Sig: TAKE 2 TABLETS BY MOUTH DAILY WITH BREAKFAST metFORMIN (GLUCOPHAGE) 1,000 mg tablet [Pharmacy Med Name: metformin 1,000 mg tablet] 180 tablet 3 Sig: take 1 tablet by mouth twice daily with meals Date of last office visit in primary care: 07/27/2023 Date of next office visit in primary care: 11/09/2023 Please advise. Thank you. López Roa LPN. documented in this encounter [facility] 03-30-2023 Instructions Karrie Rosario APRN.JULIO - 03/30/2023 6:11 PM EDT Continue to take all medication as prescribed. Continue to work on eating a low carb diet. Recommend low carb bread/tortilla for sandwiches. May try Pork Rinds to replace chips or air popped popcorn. Low sugar or keto ice cream for dessert. Continue to stay well hydrated. Monitor fasting sugars. Get repeat labs in 3 months prior to office visit. Follow up in 3 month or sooner as needed. documented in this encounter [facility] 03-30-2023 History of Presen t illness Narrative This is a 62 year old male who presents today with: Patient presents with: Follow Up: 3 month follow up HISTORY OF PRESENT ILLNESS: Erick Serna is a 62 year old male. Patient presents with: Follow Up: 3 month follow up 3 month follow up DM: Reports overall feeling well. Medication side effects: No. Home sugar checks: Fasting 118-180's. Refers that higher sugars seem to be related to eating late and having dessert. Hypoglycemic spells: No. Watching diet: Trying to work on watching diet but due to work will eat late. Likes sweets. Unexpected weight loss: No. Polyuria, polydipsia: No. Vision Changes: No. Foot lesions or numbness or pain: No. Taking Metformin 1000 mg BID, amaryl 4 mg, 2 tablets daily. A1C went from 7.9 to 8.2. HTN: Taking Lisinopril 2.5 mg for kidney protection. Migraines: Using Imitrex 100 mg prn. Stable. Lipids: Taking atorvastatin 20 mg daily. Watching diet. PAST MEDICAL HISTORY: PAST MEDICAL HISTORY Diagnosis Date Back pain Essential hypertension Hypercholesteremia Other and unspecified hyperlipidemia Type II or unspecified type diabetes mellitus without mention of complication, not stated as uncontrolled PAST SURGICAL HISTORY Procedure Laterality Date APPENDECTOMY 1990 COLONOSCOPY FLX DX W/COLLJ SPEC WHEN PFRMD Colonoscopy PAST SURGICAL HISTORY OF 05/23/2002 VENTERAL HERNIA REPAIR ALLERGIES Patient has no known allergies. MEDICATIONS Current Outpatient Medications Medication Sig SUMAtriptan (IMITREX) 100 mg tablet Take 1 tablet by mouth as needed for migraine headache (see administration instructions). benzonatate (TESSALON PERLES) 100 mg capsule Take 1 capsule by mouth three times daily as needed for cough. (Patient not taking: Reported on 12/29/2022) glimepiride (AMARYL) 4 mg tablet Take 2 tablets by mouth daily with breakfast. blood sugar diagnostic (BLOOD GLUCOSE TEST) test strip Test blood sugar(s) 1 times daily. Dx: Type 2 DM - Controlled E11.9 Insulin: No simvastatin (ZOCOR) 20 mg tablet Take 1 tablet by mouth daily at bedtime. lisinopril 2.5 mg tablet Take 1 tablet by mouth once daily. metFORMIN (GLUCOPHAGE) 1,000 mg tablet Take 1 tablet by mouth twice daily with meals. aspirin, enteric coated (ASPIRIN LOW DOSE) 81 mg EC tablet Take 1 tablet by mouth once daily. No current facility-administered medications for this visit. FAMILY HISTORY Problem Relation Age of Onset Diabetes Father No Ocular Disease No Family History Social History Tobacco Use Smoking status: Never Smokeless tobacco: Never Vaping Use Vaping Use: Never used Substance Use Topics Alcohol use: No Drug use: No REVIEW OF SYSTEMS GENERAL: No weight loss, malaise or fevers/chills HEENT: Negative for frequent or significant headaches, No changes in hearing or vision. NECK: Negative for lumps, goiter, pain and significant neck swelling RESPIRATORY: Negative for cough, hemoptysis, wheezing, dyspnea or shortness of breath CARDIOVASCULAR: Negative for chest pain, leg swelling, orthopnea, or palpitations GI: No nausea, vomiting, or diarrhea/constipation. No hematochezia/melena. No heartburn or reflux symptoms. : No history of dysuria, frequency or incontinence MUSCULOSKELETAL: Negative for joint pain or swelling. SKIN: Negative for lesions, rash, and itching ENDOCRINE: Negative for cold or heat intolerance, polyuria, polydipsia and goiter NEURO: No history of headaches, syncope, paralysis, seizures or tremors MOOD: Negative for depression, anxiety, or suicidal ideation. EXAM: BP 124/88 Pulse 89 Resp 16 Wt 77.1 kg (170 lb) SpO2 97% BMI 23.71 kg/m PHYSICAL EXAM: General Appearance: Well appearing, alert, in no acute distress, well-hydrated, well nourished. Skin: Skin color, texture, turgor normal, no suspicious rashes or lesions. Head: Normocephalic, no masses, lesions, tenderness or abnormalities. Eyes: Anicteric sclera. Extraocular movements are intact. Lungs: Lungs clear to auscultation. No wheezing, rhonchi, rales. Heart: RRR without murmur, gallop, or rubs. No ectopy. Extremities: No deformities, edema, skin discoloration, clubbing or cyanosis. Good capillary refill. Peripheral Pulses: Normal, Capillary refill <2secs, strong peripheral pulses, Pulses palpable. Neurologic: Gait normal. Sensation grossly intact. ASSESSMENT/PLAN: 1. Controlled type 2 diabetes mellitus without complication, without long-term current use of insulin (HCC) - ICD9: 250.00, ICD10: E11.9 (primary diagnosis) - Worsening control - Continue current medications - Counseled on healthy diet and regular exercise - Discussed need for and benefit of weight loss. BMI 23.71 kg/(m^2) - Discussed making strict lifestyle changes to help glucose. - Went into great detail about eating low carb diet. - Track fasting glucose at home. - Get repeat labs in 3 months prior to next office visit. - COMP METABOLIC PANEL - HGB A1C 2. Migraine without aura, intractable, without status migrainosus - ICD9: 346.11, ICD10: G43.019 - Stable. 3. Mixed hyperlipidemia - ICD9: 272.2, ICD10: E78.2 - Controlled - Continue to take current medication. - Counseled on healthy diet and regular exercise Follow up in 3 months or sooner as needed. Discussed treatment plan and patient voices understanding. Patient's questions answered appropriately. Medications and potential side effects were discussed and patient voices understanding. Karrie Rosario APRN.JULIO This note was partially generated using [employer] voice recognition system. Note was reviewed for accuracy. There may be minor misspellings or grammar miscues with [employer] voice recognition. documented in this encounter [facility] 12-29-2022 History of Presen t illness Narrative This is a 62 year old male who presents today with: Patient presents with: Follow Up: 3 month and labs HISTORY OF PRESENT ILLNESS: Erick Serna is a 62 year old male. Patient presents with: Follow Up: 3 month and labs Here in the office for 3 month follow up. DM: Reports overall feeling well. Medication side effects: No. Home sugar checks: Has checked after meals in the evening, 150-160's. Has not been checking fasting sugars. Hypoglycemic spells: No. Watching diet: Yes Unexpected weight loss: No. Polyuria, polydipsia: No. Vision Changes: No. Foot lesions or numbness or pain: No. Taking Metformin 1000 mg BID, amaryl 4 mg, 2 tablets daily. A1C went from 8.2 to 7.9. Due for eye exam, will schedule appointment. Has been trying to cut back on sweets. Has lost 15 lbs since September! HTN: Taking Lisinopril 2.5 mg for kidney protection. Migraines: Using Imitrex 100 mg prn. Stable. Lipids: Taking atorvastatin 20 mg daily. Watching diet. PAST MEDICAL HISTORY: PAST MEDICAL HISTORY Diagnosis Date Back pain Essential hypertension Hypercholesteremia Other and unspecified hyperlipidemia Type II or unspecified type diabetes mellitus without mention of complication, not stated as uncontrolled PAST SURGICAL HISTORY Procedure Laterality Date APPENDECTOMY 1990 COLONOSCOPY FLX DX W/COLLJ SPEC WHEN PFRMD Colonoscopy PAST SURGICAL HISTORY OF 05/23/2002 VENTERAL HERNIA REPAIR ALLERGIES Patient has no known allergies. MEDICATIONS Current Outpatient Medications Medication Sig SUMAtriptan (IMITREX) 100 mg tablet Take 1 tablet by mouth as needed for migraine headache (see administration instructions). benzonatate (TESSALON PERLES) 100 mg capsule Take 1 capsule by mouth three times daily as needed for cough. glimepiride (AMARYL) 4 mg tablet Take 2 tablets by mouth daily with breakfast. blood sugar diagnostic (BLOOD GLUCOSE TEST) test strip Test blood sugar(s) 1 times daily. Dx: Type 2 DM - Controlled E11.9 Insulin: No simvastatin (ZOCOR) 20 mg tablet Take 1 tablet by mouth daily at bedtime. lisinopril 2.5 mg tablet Take 1 tablet by mouth once daily. metFORMIN (GLUCOPHAGE) 1,000 mg tablet Take 1 tablet by mouth twice daily with meals. aspirin, enteric coated (ASPIRIN LOW DOSE) 81 mg EC tablet Take 1 tablet by mouth once daily. No current facility-administered medications for this visit. FAMILY HISTORY Problem Relation Age of Onset Diabetes Father No Ocular Disease No Family History Social History Tobacco Use Smoking status: Never Smokeless tobacco: Never Vaping Use Vaping Use: Never used Substance Use Topics Alcohol use: No Drug use: No REVIEW OF SYSTEMS GENERAL: No weight loss, malaise or fevers/chills HEENT: Negative for frequent or significant headaches, No changes in hearing or vision. NECK: Negative for lumps, goiter, pain and significant neck swelling RESPIRATORY: Negative for cough, hemoptysis, wheezing, dyspnea or shortness of breath CARDIOVASCULAR: Negative for chest pain, leg swelling, orthopnea, or palpitations GI: No nausea, vomiting, or diarrhea/constipation. No hematochezia/melena. No heartburn or reflux symptoms. : No history of dysuria, frequency or incontinence MUSCULOSKELETAL: Negative for joint pain or swelling. SKIN: Negative for lesions, rash, and itching ENDOCRINE: Negative for cold or heat intolerance, polyuria, polydipsia and goiter NEURO: No history of headaches, syncope, paralysis, seizures or tremors MOOD: Negative for depression, anxiety, or suicidal ideation. EXAM: BP 110/80 Pulse 99 Resp 16 Wt 75.8 kg (167 lb) SpO2 97% BMI 23.29 kg/m PHYSICAL EXAM: General Appearance: Well appearing, alert, in no acute distress, well-hydrated, well nourished. Skin: Skin color, texture, turgor normal, no suspicious rashes or lesions. Head: Normocephalic, no masses, lesions, tenderness or abnormalities. Eyes: Anicteric sclera. Extraocular movements are intact. Lungs: Lungs clear to auscultation. No wheezing, rhonchi, rales. Heart: RRR without murmur, gallop, or rubs. No ectopy. Extremities: No deformities, edema, skin discoloration, clubbing or cyanosis. Good capillary refill. Peripheral Pulses: Normal, Capillary refill <2secs, strong peripheral pulses, Pulses palpable. Neurologic: Gait normal. Reflexes normal and symmetric. Sensation grossly intact. Component Latest Ref Rng & Units 12/25/2022 Protein, Total 6.3 - 8.0 g/dL 6.7 Albumin 3.9 - 4.9 g/dL 4.4 Calcium 8.5 - 10.2 mg/dL 8.9 Bilirubin, Total 0.2 - 1.3 mg/dL 0.8 Alkaline Phosphatase 38 - 113 U/L 70 AST 14 - 40 U/L 19 ALT 10 - 54 U/L 11 Glucose 74 - 99 mg/dL 132 (H) BUN 9 - 24 mg/dL 19 Creatinine 0.73 - 1.22 mg/dL 1.25 (H) Sodium 136 - 144 mmol/L 140 Potassium 3.7 - 5.1 mmol/L 4.7 Chloride 97 - 105 mmol/L 103 CO2 22 - 30 mmol/L 26 Anion Gap 9 - 18 mmol/L 11 eGFR >=60 mL/min/1.73m 65 Creatinine, Ur Random (UCRR) 20.0 - 300.0 mg/dL 280.1 Albumin, Urine Random mg/L 24.2 Albumin/Creat Ratio <30 mg/g 9 Hemoglobin A1C 4.3 - 5.6 % 7.9 (H) Estimated Average Glucose mg/dL 180 ASSESSMENT/PLAN: 1. Controlled type 2 diabetes mellitus without complication, without long-term current use of insulin (HCC) - ICD9: 250.00, ICD10: E11.9 (primary diagnosis) - Improving control - Continue current medications - Counseled on healthy diet and regular exercise - Discussed need for and benefit of weight loss. BMI 23.29 kg/(m^2) - Denied wanting to make any medication adjustments at this time, will continue to work on lifestyle changes at home. - Get repeat labs in 3 months prior to next office visit. - HGB A1C - COMP METABOLIC PANEL 2. Migraine without aura, intractable, without status migrainosus - ICD9: 346.11, ICD10: G43.019 - Stable, continue current medication prn. 3. Mixed hyperlipidemia - ICD9: 272.2, ICD10: E78.2 - to be determined upon return of lab results - Continue current medication. Follow-up in 3 months or sooner as needed. Discussed treatment plan and patient voices understanding. Patient's questions answered appropriately. Medications and potential side effects were discussed and patient voices understanding. Karrie Rosario APRN.[place] MACHINE OPERATOR This note was partially generated using [employer] recognition system. Note was reviewed for accuracy. There may be minor misspellings or grammar miscues with [employer] voice recognition. documented in this encounter [facility] 12-29-2022 Instructions Karrie Rosario APRN.CNP - 12/29/2022 5:59 PM EDT Get repeat labs in 3 month prior to next office visit. Continue to take medication as prescribed. Continue to monitor fasting sugars first thing in the morning prior to eating breakfast. Work on eating low carb diet, increase protein, veggies, and get some form of exercise. Follow up in 3 months or sooner as needed. Due for eye exam. documented in this encounter [facility] 11-08-2022 Miscellaneous Notes Formattin g of this note is different from the original. The following approved medication requests have been transmitted electronically. Requested Prescriptions Signed Prescriptions Disp Refills SUMAtriptan (IMITREX) 100 mg tablet 9 tablet 5 Sig: Take 1 tablet by mouth as needed for migraine headache (see administration instructions). Authorizing Provider: KARRIE ROSARIO APRN.CNP The following approved medication requests have been transmitted electronically. Requested Prescriptions Pending Prescriptions Disp Refills SUMAtriptan (IMITREX) 100 mg tablet 9 tablet 5 Sig: Take 1 tablet by mouth as needed for migraine headache (see administration instructions). Karrie Rosario APRN.CNP Call to pt and notified him that his Rx's have already been sent in and pt notified. Is asking for Imitrex to be sent in. Pended Rx. Please send this into pharmacy. Divya Etienne Ma Patient has been identified by name and date of : Yes Patient asking for 3 month prescription refills on all of his medications. Patient did not have the names of the medications. RX INSTRUCTIONS: Patient aware RX will be sent to pharmacy. No need to notify patient. Shamika Chen documented in this encounter [facility] 10-13-2022 Miscellaneous Notes Formattin g of this note might be different from the original. Patient notified and verbalized understanding of instructions given.Grace Nixon LPN Please notify patient tested positive for Covid 19 Follow the CDC guidelines for isolation: 1. Everyone, regardless of vaccination status, should stay home for 5 days. 2. If you have no symptoms or your symptoms are resolving after 5 days, you can leave your house. 3. Continue to wear a mask around others for 5 additional days. If you have a fever, continue to stay home until your fever resolves, even if it is longer than 5 days. Please monitor your symptoms, and for any worrisome symptoms, call your primary care provider or schedule a visit with [facility]. A test is not recommended to return to work/school when meeting the above criteria. -The office note is not clear on duration of symptoms. Unclear if candidate for antiviral treatment. Can call and discuss with pcp if wants antiviral treatment for covid. documented in this encounter [facility] 10-12-2022 History of Presen t illness Narrative This note was created using [employer]. Subjective Erick Serna is a 61 year old male. HPI 61-year-old male presents for cough, fever, congestion x2 days. Patient states that he has been having an intermittent cough for the past 2 months. He states he gets worse when he goes outside in the cold weather. He reports that yesterday he was outside in the cold again and started getting a cough. Today he has a low-grade fever. He states that he has had some nasal congestion since yesterday. No vomiting or diarrhea. No chest pain. He does report some intermittent shortness of breath when he has the cough. He states he took cough medicine this morning which helped a little bit. States the cough is dry. He has had bronchitis in the past. No history of COPD or asthma. He is not a smoker. PAST MEDICAL HISTORY Diagnosis Date Back pain Essential hypertension Hypercholesteremia Other and unspecified hyperlipidemia Type II or unspecified type diabetes mellitus without mention of complication, not stated as uncontrolled PAST SURGICAL HISTORY Procedure Laterality Date APPENDECTOMY 1990 COLONOSCOPY FLX DX W/COLLJ SPEC WHEN PFRMD Colonoscopy PAST SURGICAL HISTORY OF 05/23/2002 VENTERAL HERNIA REPAIR ALLERGIES Patient has no known allergies. MEDICATIONS glimepiride (AMARYL) 4 mg tablet Take 2 tablets by mouth daily with breakfast. blood sugar diagnostic (BLOOD GLUCOSE TEST) test strip Test blood sugar(s) 1 times daily. Dx: Type 2 DM - Controlled E11.9 Insulin: No simvastatin (ZOCOR) 20 mg tablet Take 1 tablet by mouth daily at bedtime. lisinopril 2.5 mg tablet Take 1 tablet by mouth once daily. metFORMIN (GLUCOPHAGE) 1,000 mg tablet Take 1 tablet by mouth twice daily with meals. SUMAtriptan (IMITREX) 100 mg tablet Take 1 tablet by mouth as needed for migraine headache (see administration instructions). aspirin, enteric coated (ASPIRIN LOW DOSE) 81 mg EC tablet Take 1 tablet by mouth once daily. FAMILY HISTORY Problem Relation Age of Onset Diabetes Father No Ocular Disease No Family History Social History Tobacco Use Smoking status: Never Smokeless tobacco: Never Vaping Use Vaping Use: Never used Substance Use Topics Alcohol use: No Drug use: No Review of Systems Constitutional: Positive for fever. Negative for chills. HENT: Positive for congestion. Negative for sore throat. Respiratory: Positive for cough. Negative for shortness of breath. Gastrointestinal: Negative for diarrhea and vomiting. Objective BP 122/82 Pulse 92 Temp (!) 38 C (100.4 F) (Tympanic) Resp 20 Wt 82.9 kg (182 lb 12.8 oz) SpO2 98% BMI 25.50 kg/m Physical Exam Vitals and nursing note reviewed. Constitutional: General: He is not in acute distress. Appearance: Normal appearance. He is not toxic-appearing. HENT: Right Ear: Tympanic membrane and ear canal normal. Left Ear: Tympanic membrane and ear canal normal. Nose: Nose normal. Mouth/Throat: Mouth: Mucous membranes are moist. Eyes: Conjunctiva/sclera: Conjunctivae normal. Cardiovascular: Rate and Rhythm: Normal rate and regular rhythm. Pulmonary: Effort: Pulmonary effort is normal. Breath sounds: Normal breath sounds. Skin: General: Skin is warm and dry. Neurological: Mental Status: He is alert. Assessment and Plan ASSESSMENT/PLAN: 1. Acute cough - ICD9: 786.2, ICD10: R05.1 (primary diagnosis) - XR CHEST 2V FRONTAL/LAT - Chest x-ray no acute findings - COVID WITH FLUA+B, ROUTINE 2. Bronchitis - ICD9: 490, ICD10: J40 -Cough for 2 months, with associated shortness of breath and occasional wheezing -Rx for prednisone -Rx Dung Reyes Diagnosis and treatment plan were discussed and questions were answered to the patient's satisfaction. Pt acknowledged understanding of concepts and follow up plan. Specific signs and symptoms that would indicate the need for higher level of care were discussed in detail warranting prompt ER evaluation. DEAN Ayala documented in this encounter [facility] 09-22-2022 Instructions Karrie Rosario APRN.CNP - 09/22/2022 6:15 PM EST Get repeat labs and urine testing in 3 months prior to next office visit. Continue to take all medication as prescribed. Continue to eat a low carb diet, increase protein, veggies, and get some form of exercise. Follow up in 3 months or sooner as needed. documented in this encounter [facility] 09-22-2022 History of Presen t illness Narrative This is a 61 year old male who presents today with: Patient presents with: Follow Up: 6 month with labs HISTORY OF PRESENT ILLNESS: Erick Serna is a 61 year old male. Patient presents with: Follow Up: 6 month with labs Here in the office for 6-month follow-up. DM: Reports overall feeling well. Medication side effects: No. Home sugar checks: Checking random, non-fasting 140 Hypoglycemic spells: No. Watching diet: Yes.Working on diet. Unexpected weight loss: Yes. Polyuria, polydipsia: No. Vision Changes: No. Foot lesions or numbness or pain: No. Taking metformin 1000 mg twice daily, Amaryl 4 mg, 2 tablets daily. A1c has gone up from 7.7 to 8.2. Refers he hasn't ate the best due to the holidays. He does not like vegetables. Staying active at work. HTN: Taking lisinopril 2.5 mg daily for kidney protection. Migraine: Using Imitrex 100 mg as needed. Haven't needed medication for some time. Lipid: Taking simvastatin 20 mg daily. Working on diet. Tolerating medication well, denies any myalgias or leg pains Vaccines: Denies wanting any vaccines at this time. PAST MEDICAL HISTORY: PAST MEDICAL HISTORY Diagnosis Date Back pain Essential hypertension Hypercholesteremia Other and unspecified hyperlipidemia Type II or unspecified type diabetes mellitus without mention of complication, not stated as uncontrolled PAST SURGICAL HISTORY Procedure Laterality Date APPENDECTOMY 1990 COLONOSCOPY FLX DX W/COLLJ SPEC WHEN PFRMD Colonoscopy PAST SURGICAL HISTORY OF 05/23/2002 VENTERAL HERNIA REPAIR ALLERGIES Patient has no known allergies. MEDICATIONS Current Outpatient Medications Medication Sig glimepiride (AMARYL) 4 mg tablet Take 2 tablets by mouth daily with breakfast. blood sugar diagnostic (BLOOD GLUCOSE TEST) test strip Test blood sugar(s) 1 times daily. Dx: Type 2 DM - Controlled E11.9 Insulin: No SUMAtriptan (IMITREX) 100 mg tablet Take 1 tablet by mouth as needed for migraine headache (see administration instructions). simvastatin (ZOCOR) 20 mg tablet Take 1 tablet by mouth daily at bedtime. lisinopril 2.5 mg tablet Take 1 tablet by mouth once daily. metFORMIN (GLUCOPHAGE) 1,000 mg tablet Take 1 tablet by mouth twice daily with meals. aspirin, enteric coated (ASPIRIN LOW DOSE) 81 mg EC tablet Take 1 tablet by mouth once daily. No current facility-administered medications for this visit. FAMILY HISTORY Problem Relation Age of Onset Diabetes Father No Ocular Disease No Family History Social History Tobacco Use Smoking status: Never Smokeless tobacco: Never Vaping Use Vaping Use: Never used Substance Use Topics Alcohol use: No Drug use: No REVIEW OF SYSTEMS GENERAL: No weight loss, malaise or fevers/chills HEENT: Negative for frequent or significant headaches, No changes in hearing or vision. NECK: Negative for lumps, goiter, pain and significant neck swelling RESPIRATORY: Negative for cough, hemoptysis, wheezing, dyspnea or shortness of breath CARDIOVASCULAR: Negative for chest pain, leg swelling, orthopnea, or palpitations GI: No nausea, vomiting, or diarrhea/constipation. No hematochezia/melena. No heartburn or reflux symptoms. : No history of dysuria, frequency or incontinence MUSCULOSKELETAL: Negative for joint pain or swelling. SKIN: Negative for lesions, rash, and itching ENDOCRINE: Negative for cold or heat intolerance, polyuria, polydipsia and goiter NEURO: No history of headaches, syncope, paralysis, seizures or tremors MOOD: Negative for depression, anxiety, or suicidal ideation. EXAM: BP 136/82 Pulse 89 Resp 16 Wt 80.7 kg (178 lb) SpO2 99% BMI 24.83 kg/m Component Latest Ref Rng & Units 09/21/2022 Protein, Total 6.3 - 8.0 g/dL 6.7 Albumin 3.9 - 4.9 g/dL 4.2 Calcium 8.5 - 10.2 mg/dL 8.6 Bilirubin, Total 0.2 - 1.3 mg/dL 0.9 Alkaline Phosphatase 38 - 113 U/L 79 AST 14 - 40 U/L 19 ALT 10 - 54 U/L 20 Glucose 74 - 99 mg/dL 205 (H) BUN 9 - 24 mg/dL 22 Creatinine 0.73 - 1.22 mg/dL 1.27 (H) Sodium 136 - 144 mmol/L 137 Potassium 3.7 - 5.1 mmol/L 5.0 Chloride 97 - 105 mmol/L 100 CO2 22 - 30 mmol/L 26 Anion Gap 9 - 18 mmol/L 11 eGFR >=60 mL/min/1.73m 64 Cholesterol, Total <200 mg/dL 158 Triglyceride <150 mg/dL 82 HDL Cholesterol >39 mg/dL 53 Non HDL Cholesterol <130 mg/dL 105 Fasting Time hrs 13 VLDL Cholesterol <30 mg/dL 16 TC:HDL Ratio <5.10 2.98 LDL Cholesterol <100 mg/dL 89 LDL:HDL Ratio <2.54 1.68 Hemoglobin A1C 4.3 - 5.6 % 8.2 (H) Estimated Average Glucose mg/dL 189 PHYSICAL EXAM: General Appearance: Well appearing, alert, in no acute distress, well-hydrated, well nourished. Skin: Skin color, texture, turgor normal, no suspicious rashes or lesions. Head: Normocephalic, no masses, lesions, tenderness or abnormalities. Eyes: Anicteric sclera. Extraocular movements are intact. Lungs: Lungs clear to auscultation. No wheezing, rhonchi, rales. Heart: RRR without murmur, gallop, or rubs. No ectopy. Extremities: No deformities, edema, skin discoloration, clubbing or cyanosis. Good capillary refill. Musculoskeletal: No joint swelling, deformity, or tenderness. Peripheral Pulses: Normal, Capillary refill <2secs, strong peripheral pulses, Pulses palpable. Neurologic: Gait normal. Sensation grossly intact. ASSESSMENT/PLAN: 1. Controlled type 2 diabetes mellitus without complication, without long-term current use of insulin (HCC) - ICD9: 250.00, ICD10: E11.9 (primary diagnosis) worsening control - Continue current medications - Encouraged regular aerobic exercise and weight loss - Denied wanting to make any medication adjustments at this time, would like to work on lifestyle changes. - Work on eating a low carb diet, increase protein, vegetables, and get some form exercise. - Get repeat labs and urine testing in 3 months prior to next OV. - GLIMEPIRIDE 4 MG TABLET - BLOOD GLUCOSE TEST STRIPS - METFORMIN 1,000 MG TABLET - HGB A1C - COMP METABOLIC PANEL - ALBUMIN/CREAT RATIO RND UR 2. Mixed hyperlipidemia - ICD9: 272.2, ICD10: E78.2 - good control - Continue current medication. - Encouraged following a low fat, low cholesterol diet. 3. Migraine without aura and without status migrainosus, not intractable - ICD9: 346.10, ICD10: G43.009 - Stable, continue current medication. Follow-up in 3 months or sooner as needed. Discussed treatment plan and patient voices understanding. Patient's questions answered appropriately. Medications and potential side effects were discussed and patient voices understanding. Krarie Rosario APRN.[place] MACHINE OPERATOR This note was partially generated using [employer] voice recognition system. Note was reviewed for accuracy. There may be minor misspellings or grammar miscues with [employer] voice recognition. documented in this encounter [facility] 09-20-2022 Miscellaneous Notes Formattin g of this note might be different from the original. Lab orders have been placed for upcoming appointment. Karrie Rosario APRN.CNP documented in this encounter [facility] 03-22-2022 Miscellaneous Notes Formattin g of this note might be different from the original. Orders signed. Karrie Rosario APRN.CNP Pt scheduled an appt on 03/24/22. Pended orders. Please complete and advise pt. Divya Etienne Ma Patient requesting lab work has appointment on 03/24 Thank you . Me documented in this encounter [facility] 01-09-2022 Instructions Karrie Rosario APRN.CNP - 01/09/2022 9:31 AM EDT 1.) Xray was negative for any abnormalities. 2.) May use NSAIDS such as ibuprofen, 600-800 mg every 6-8 hours as needed. 3.) May apply ice to the area. 4.) Try to rest the arm. 5.) Follow up with PCP if pain does not improve. documented in this encounter [facility] 01-09-2022 History of Presen t illness Narrative Radiology Service Progress Note PATIENT NAME: Erick Serna DATE OF SERVICE: January 09, 2022 TIME: 8:52 AM PATIENT IDENTITY VERIFICATION COMPLETED USING TWO (2) IDENTIFIERS: Name and Date of confirmed by patient verbally. FALL SCREENING: Has the patient had 2 falls in the last year or 1 fall with injury or currently using an Ambulatory Assistive Device (Walker, Cane, Wheelchair, Crutches, etc.)? No PATIENT GENDER DATA: Male PATIENT RELEVANT IMPLANT DATA REVIEWED: Not Applicable RADIOLOGY DEPARTMENT: General X-ray: Exam(s) Completed: Upper Extremity X-Ray(s): Elbow, right PERIPHERAL IV DATA: Not applicable SIGNED BY: RT Mao(R) January 09, 2022 8:52 AM documented in this encounter [facility] 01-09-2022 History of Presen t illness Narrative This is a 61 year old male who presents today with: Patient presents with: Pain: right elbow and shoulder pain x4 days, no injury HISTORY OF PRESENT ILLNESS: Erick Serna is a 61 year old male. Patient presents with: Pain: right elbow and shoulder pain x4 days, no injury Here in urgent care for right elbow and shoulder pain. Refers that a couple years ago at work was lifting a pipe above his head and had severe pain. Has not been very bothersome recently. Noticed at work yesterday got sharp pain in medial aspect of right forearm. Pain is sharp that waxes and wanes. Worse with certain movements. Took NSAIDS without much benefit. PAST MEDICAL HISTORY: PAST MEDICAL HISTORY Diagnosis Date Back pain Essential hypertension Hypercholesteremia Other and unspecified hyperlipidemia Type II or unspecified type diabetes mellitus without mention of complication, not stated as uncontrolled PAST SURGICAL HISTORY Procedure Laterality Date APPENDECTOMY 1990 COLONOSCOPY FLX DX W/COLLJ SPEC WHEN PFRMD Colonoscopy PAST SURGICAL HISTORY OF 05/23/2002 VENTERAL HERNIA REPAIR ALLERGIES Patient has no known allergies. MEDICATIONS Current Outpatient Medications Medication Sig glimepiride (AMARYL) 4 mg tablet Take 2 tablets by mouth daily with breakfast. blood sugar diagnostic (BLOOD GLUCOSE TEST) test strip Test blood sugar(s) 1 times daily. Dx: Type 2 DM - Controlled E11.9 Insulin: No SUMAtriptan (IMITREX) 100 mg tablet Take 1 tablet by mouth as needed for migraine headache (see administration instructions). simvastatin (ZOCOR) 20 mg tablet Take 1 tablet by mouth daily at bedtime. lisinopril 2.5 mg tablet Take 1 tablet by mouth once daily. metFORMIN (GLUCOPHAGE) 1,000 mg tablet Take 1 tablet by mouth twice daily with meals. aspirin, enteric coated (ASPIRIN LOW DOSE) 81 mg EC tablet Take 1 tablet by mouth once daily. No current facility-administered medications for this visit. FAMILY HISTORY Problem Relation Age of Onset Diabetes Father No Ocular Disease No Family History Social History Tobacco Use Smoking status: Never Smoker Smokeless tobacco: Never Used Vaping Use Vaping Use: Never used Substance Use Topics Alcohol use: No Drug use: No REVIEW OF SYSTEMS GENERAL: No weight loss, malaise or fevers/chills HEENT: Negative for frequent or significant headaches, No changes in hearing or vision. NECK: Negative for lumps, goiter, pain and significant neck swelling RESPIRATORY: Negative for cough, hemoptysis, wheezing, dyspnea or shortness of breath CARDIOVASCULAR: Negative for chest pain, leg swelling, orthopnea, or palpitations GI: No nausea, vomiting, or diarrhea/constipation. No hematochezia/melena. No heartburn or reflux symptoms. : No history of dysuria, frequency or incontinence MUSCULOSKELETAL: + Rt shoulder/elbow pain SKIN: Negative for lesions, rash, and itching ENDOCRINE: Negative for cold or heat intolerance, polyuria, polydipsia and goiter NEURO: No history of headaches, syncope, paralysis, seizures or tremors MOOD: Negative for depression, anxiety, or suicidal ideation. EXAM: BP 130/80 Pulse 92 Temp 36.7 C (98 F) Resp 16 Wt 81.1 kg (178 lb 12.8 oz) SpO2 99% BMI 24.94 kg/m PHYSICAL EXAM: General Appearance: Well appearing, alert, in no acute distress, well-hydrated, well nourished. Head: Normocephalic, no masses, lesions, tenderness or abnormalities. Eyes: Anicteric sclera. Extraocular movements are intact. Extremities: No deformities, edema, skin discoloration, clubbing or cyanosis. Good capillary refill. Musculoskeletal: Tenderness noted on the right medial aspect of elbow. Full ROM, no swelling or color change noted. Peripheral Pulses: Normal, Capillary refill <2secs, strong peripheral pulses, Pulses palpable. ASSESSMENT/PLAN: 1. Right elbow pain - ICD9: 719.42, ICD10: M25.521 (primary diagnosis) - Xray Negative for any fracture. - XR ELBOW SPECIAL VIEWS AP/LAT/OTHER RIGHT 2. Muscle strain - ICD9: 848.9, ICD10: T14.8XXA - Negative xray, symptoms consistent with muscle strain. - May use NSAIDS, ice, and compression as needed. - Follow up with PCP if pain does not improve. Follow up as needed. Discussed treatment plan and patient voices understanding. Patient's questions answered appropriately. Medications and potential side effects were discussed and patient voices understanding. Karrie Rosario APRN.CNP This note was partially generated using [employer] voice recognition system. Note was reviewed for accuracy. There may be minor misspellings or grammar miscues with [employer] voice recognition. documented in this encounter [facility] 12-30-2021 Instructions Karrie Rosario APRN.CNP - 12/30/2021 7:20 AM EDT 1.) Sutures removed without any difficulty. 2.) watch for signs of infection or tissue necrosis. Increased redness, pus, or fever/chills. 3.) If healing skin continues to turn black please contact the office. May need to see ortho. 4.) Follow up as needed. Keep upcoming 6 month appointment. Get labs completed about 1 week prior to appointment. documented in this encounter [facility] 12-30-2021 History of Presen t illness Narrative This is a 61 year old male who presents today with: Patient presents with: Acute Visit: Left finger sutures removel HISTORY OF PRESENT ILLNESS: Erick Serna is a 61 year old male. Patient presents with: Acute Visit: Left finger sutures removel Here in the office for suture removal. 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 Went [facility] ER for repair. 7 sutures present. 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 No wound discharge, fever, or chills. PAST MEDICAL HISTORY: PAST MEDICAL HISTORY Diagnosis Date Back pain Essential hypertension Hypercholesteremia Other and unspecified hyperlipidemia Type II or unspecified type diabetes mellitus without mention of complication, not stated as uncontrolled PAST SURGICAL HISTORY Procedure Laterality Date APPENDECTOMY 1990 COLONOSCOPY FLX DX W/COLLJ SPEC WHEN PFRMD Colonoscopy PAST SURGICAL HISTORY OF 05/23/2002 VENTERAL HERNIA REPAIR ALLERGIES Patient has no known allergies. MEDICATIONS Current Outpatient Medications Medication Sig glimepiride (AMARYL) 4 mg tablet Take 2 tablets by mouth daily with breakfast. blood sugar diagnostic (BLOOD GLUCOSE TEST) test strip Test blood sugar(s) 1 times daily. Dx: Type 2 DM - Controlled E11.9 Insulin: No SUMAtriptan (IMITREX) 100 mg tablet Take 1 tablet by mouth as needed for migraine headache (see administration instructions). simvastatin (ZOCOR) 20 mg tablet Take 1 tablet by mouth daily at bedtime. lisinopril 2.5 mg tablet Take 1 tablet by mouth once daily. metFORMIN (GLUCOPHAGE) 1,000 mg tablet Take 1 tablet by mouth twice daily with meals. aspirin, enteric coated (ASPIRIN LOW DOSE) 81 mg EC tablet Take 1 tablet by mouth once daily. No current facility-administered medications for this visit. FAMILY HISTORY Problem Relation Age of Onset Diabetes Father No Ocular Disease No Family History Social History Tobacco Use Smoking status: Never Smoker Smokeless tobacco: Never Used Vaping Use Vaping Use: Never used Substance Use Topics Alcohol use: No Drug use: No REVIEW OF SYSTEMS GENERAL: No weight loss, malaise or fevers/chills HEENT: Negative for frequent or significant headaches, No changes in hearing or vision. NECK: Negative for lumps, goiter, pain and significant neck swelling RESPIRATORY: Negative for cough, hemoptysis, wheezing, dyspnea or shortness of breath CARDIOVASCULAR: Negative for chest pain, leg swelling, orthopnea, or palpitations GI: No nausea, vomiting, or diarrhea/constipation. No hematochezia/melena. No heartburn or reflux symptoms. : No history of dysuria, frequency or incontinence MUSCULOSKELETAL: Negative for joint pain or swelling. SKIN: + healing laceration left index finger. ENDOCRINE: Negative for cold or heat intolerance, polyuria, polydipsia and goiter NEURO: No history of headaches, syncope, paralysis, seizures or tremors MOOD: Negative for depression, anxiety, or suicidal ideation. EXAM: BP 110/80 Pulse 91 Resp 16 Wt 78.9 kg (174 lb) SpO2 97% BMI 24.27 kg/m PHYSICAL EXAM: General Appearance: Well appearing, alert, in no acute distress, well-hydrated, well nourished. Skin: + 7 sutures present on left distal index finger. Crusting noted with dark brown areas. No erythema/discharge. Head: Normocephalic, no masses, lesions, tenderness or abnormalities. Eyes: Anicteric sclera. Extraocular movements are intact. Lungs: Lungs clear to auscultation. No wheezing, rhonchi, rales. Heart: RRR without murmur, gallop, or rubs. No ectopy. Extremities: No deformities, edema, skin discoloration, clubbing or cyanosis. Good capillary refill. Peripheral Pulses: Normal, Capillary refill <2secs, strong peripheral pulses, Pulses palpable. 7 sutures removed on left index finger without difficulty. Patient tolerated procedure well. ASSESSMENT/PLAN: 1. Visit for suture removal - ICD9: V58.32, ICD10: Z48.02 (primary diagnosis) - Sutures removed without difficulty. 2. Injury of left index finger, initial encounter - ICD9: 959.5, ICD10: S69.92XA - May continue to cover the left index finger when at work. - Instructed patient to contact the office if dark colored areas on fingers does not improve or gets worse, may need to see Ortho. 3. Controlled type 2 diabetes mellitus without complication, without long-term current use of insulin ([facility]) - ICD9: 250.00, ICD10: E11.9 - Get labs completed prior to next office visit. - COMP METABOLIC PANEL - HGB A1C Follow-up as needed or sooner if symptoms get worse or do not improve Discussed treatment plan and patient voices understanding. Patient's questions answered appropriately. Medications and potential side effects were discussed and patient voices understanding. Karrie Rosario APRN.JULIO This note was partially generated using [employer] recognition system. Note was reviewed for accuracy. There may be minor misspellings or grammar miscues with [employer] voice recognition. documented in this encounter [facility] 12-17-2021 Miscellaneous Notes Patient notified of PCP recommendations, verbalizes understanding of instructions. Garry Gonsales LPN Noted; I agree with using tylenol and ibuprofen/naprosyn as needed for pain Cisco Koroma MD Patient calling to let PCP know he was seen in ER today due to cut top of left index finger ~80% off. He has seven sutures to be removed in 10 days. 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 He states he was not given any pain medication and it's beginning to throb. Advised he can try OTC medication such as Ibuprofen, Aleve or Acetaminophen. Advised patient will send note to PCP for recommendation. Ivet Hi RN documented in this encounter [facility] 07-15-2008 History of Past i llness Narrative Problem Noted Date Resolved Date Screening for unspecified condition 07/15/2008 08/28/2010 Abdominal pain, other specified site 02/21/2007 08/28/2010 documented as of this encounter (statuses as of 12/17/2021) [facility] History of Past illness Narrative* Problem Noted Date Resolved Date Screening for unspecified condition 07/15/2008 08/28/2010 Abdominal pain, other specified site 02/21/2007 08/28/2010 documented as of this encounter (statuses as of 12/30/2021) [facility] History of Past illness Narrative* Problem Noted Date Resolved Date Screening for unspecified condition 07/15/2008 08/28/2010 Abdominal pain, other specified site 02/21/2007 08/28/2010 documented as of this encounter (statuses as of 01/09/2022) [facility] History of Past illness Narrative* Problem Noted Date Resolved Date Screening for unspecified condition 07/15/2008 08/28/2010 Abdominal pain, other specified site 02/21/2007 08/28/2010 documented as of this encounter (statuses as of 03/22/2022) [address] History of Past illness Narrative* Problem Noted Date Resolved Date Screening for unspecified condition 07/15/2008 08/28/2010 Abdominal pain, other specified site 02/21/2007 08/28/2010 documented as of this encounter (statuses as of 09/20/2022) [address] History of Past illness Narrative* Problem Noted Date Resolved Date Screening for unspecified condition 07/15/2008 08/28/2010 Abdominal pain, other specified site 02/21/2007 08/28/2010 documented as of this encounter (statuses as of 09/23/2022) [address] History of Past illness Narrative* Problem Noted Date Resolved Date Screening for unspecified condition 07/15/2008 08/28/2010 Abdominal pain, other specified site 02/21/2007 08/28/2010 documented as of this encounter (statuses as of 10/12/2022) [address] History of Past illness Narrative* Problem Noted Date Resolved Date Screening for unspecified condition 07/15/2008 08/28/2010 Abdominal pain, other specified site 02/21/2007 08/28/2010 documented as of this encounter (statuses as of 10/13/2022) [address]2008 History of Past illness Narrative* Problem Noted Date Resolved Date Screening for unspecified condition 07/15/2008 08/28/2010 Abdominal pain, other specified site 02/21/2007 08/28/2010 documented as of this encounter (statuses as of 11/08/2022) [address] History of Past illness Narrative* Problem Noted Date Resolved Date Screening for unspecified condition 07/15/2008 08/28/2010 Abdominal pain, other specified site 02/21/2007 08/28/2010 documented as of this encounter (statuses as of 12/30/2022) [address] History of Past illness Narrative* Problem Noted Date Diagnosed Date Resolved Date Screening for unspecified condition 07/15/2008 08/28/2010 Abdominal pain, other specified site 02/21/2007 08/28/2010 documented as of this encounter (statuses as of 03/31/2023) [address] History of Past illness Narrative* Problem Noted Date Diagnosed Date Resolved Date Screening for unspecified condition 07/15/2008 08/28/2010 Abdominal pain, other specified site 02/21/2007 08/28/2010 documented as of this encounter (statuses as of 10/17/2023) [address] History of Past illness Narrative* Problem Noted Date Diagnosed Date Resolved Date Screening for unspecified condition 07/15/2008 08/28/2010 Abdominal pain, other specified site 02/21/2007 08/28/2010 documented as of this encounter (statuses as of 10/25/2023) [address] History of Past illness Narrative* Problem Noted Date Diagnosed Date Resolved Date Screening for unspecified condition 07/15/2008 08/28/2010 Abdominal pain, other specified site 02/21/2007 08/28/2010 documented as of this encounter (statuses as of 11/10/2023) [facility] noteNo assessment information availableWSumma [facility] Work Phone: Evaluation note* Diagnosis Visit for suture removal- Primary Encounter for removal of sutures Injury of left index finger, initial encounter Controlled type 2 diabetes mellitus without complication, without long-term current use of insulin ([facility]) documented in this encounter [facility] note* Diagnosis Right elbow pain- Primary Pain in joint, upper arm Muscle strain Unspecified site of sprain and strain documented in this encounter [facility] note* Diagnosis Controlled type 2 diabetes mellitus without complication, without long-term current use of insulin (HCC)- Primary Mixed hyperlipidemia documented in this encounter [facility] note* Diagnosis Controlled type 2 diabetes mellitus without complication, without long-term current use of insulin (HCC)- Primary Mixed hyperlipidemia documented in this encounter [facility] note* Diagnosis Controlled type 2 diabetes mellitus without complication, without long-term current use of insulin (HCC)- Primary Mixed hyperlipidemia Migraine without aura and without status migrainosus, not intractable Migraine without aura, without mention of intractable migraine without mention of status migrainosus documented in this encounter [facility] note* Diagnosis Acute cough- Primary Bronchitis Bronchitis, not specified as acute or chronic [facility] Diagnosis Migraine without aura, intractable, without status migrainosus [facility] Diagnosis Controlled type 2 diabetes mellitus without complication, without long-term current use of insulin (HCC)- Primary Migraine without aura, intractable, without status migrainosus Mixed hyperlipidemia [facility] Diagnosis Controlled type 2 diabetes mellitus without complication, without long-term current use of insulin (HCC)- Primary Migraine without aura, intractable, without status migrainosus Mixed hyperlipidemia [facility] Diagnosis Controlled type 2 diabetes mellitus without complication, without long-term current use of insulin ([facility]) [facility]* Diagnosis Controlled type 2 diabetes mellitus without complication, without long-term current use of insulin (HCC)- Primary Hypertension, essential Unspecified essential hypertension Mixed hyperlipidemia Migraine without aura, intractable, without status migrainosus Difficulty sleeping Sleep disturbance, unspecified [facility] Diagnosis Controlled type 2 diabetes mellitus without complication, without long-term current use of insulin (HCC)- Primary Hypertension, essential Unspecified essential hypertension Mixed hyperlipidemia Migraine without aura, intractable, without status migrainosus Difficulty sleeping Sleep disturbance, unspecified Type 2 diabetes mellitus without retinopathy (HCC) Type II or unspecified type diabetes mellitus without mention of complication, not stated as uncontrolled documented in this encounter [facility] note* Diagnosis Acute cough [facility] Diagnosis Right elbow pain Pain in joint, upper arm [facility]* Diagnosis Tremor- Primary Abnormal involuntary movements Controlled type 2 diabetes mellitus without complication, without long-term current use of insulin (HCC) Hypertension, essential Unspecified essential hypertension Mixed hyperlipidemia Migraine without aura, intractable, without status migrainosus Difficulty sleeping Sleep disturbance, unspecified Encounter for immunization Need for other specified prophylactic vaccination against single bacterial disease [facility] Diagnosis Controlled type 2 diabetes mellitus without complication, without long-term current use of insulin (HCC)- Primary Mixed hyperlipidemia documented in this encounter [facility] note* Diagnosis Controlled type 2 diabetes mellitus without complication, without long-term current use of insulin (HCC) documented in this encounter [facility] note* Diagnosis Tremor- Primary Abnormal involuntary movements Controlled type 2 diabetes mellitus without complication, without long-term current use of insulin (HCC) Hypertension, essential Unspecified essential hypertension Mixed hyperlipidemia Migraine without aura, intractable, without status migrainosus documented in this encounter [facility] Discharge instructions Additional Instructions Keep the wound clean and dry. Do not soak it in bath water or dishwater. If it gets wet or dirty clean and dry it well. Ice and elevate to decrease pain and swelling. If our dressing stays dry and clean leave it on for for 5 days then change and clean daily. Remove the sutures in 10 days. We can do that, you can do it or your primary care physician's office. Any signs of infection such as pus, redness, streaks or fever return. If this takes it will heal nicely. If it does not the skin will dry up eventually come off and it will just be a larger wound that will take longer to heal.[facility] Work Phone: [facility] for referral (narrative)* Diagnostic Procedure Only (Urgent) - Closed Specialty Diagnoses / Procedures Referred By Contac t Referred To Contact XR IMAGING Diagnoses Right elbow pain Procedures XR ELBOW SPECIAL VIEWS AP/LAT/OTHER RIGHT RADEX ELBOW COMPLETE MINIMUM 3 VIEWS Karrie Rosario APRN.[place] [employer] [address] [id number] Xr Imaging Referral ID Status Reason Start Date Expiration Date V isits Requested Visits Authorized [id number] Closed Auto-Generate d Referral 01/09/2022 02/08/2023 1 1 [facility] for referral (narrative)* Diagnostic Procedure Only (Urgent) - Closed Specialty Diagnoses / Procedures Referred By Contac t Referred To Contact XR IMAGING Diagnoses Right elbow pain Procedures XR ELBOW SPECIAL VIEWS AP/LAT/OTHER RIGHT RADEX ELBOW COMPLETE MINIMUM 3 VIEWS Karrie Rosario APRN.CNP [address] [place] [address] [place] [address] Referral ID Status Reason Start Date Expiration Date V isits Requested Visits Authorized [id number] Closed Auto-Generate d Referral 01/09/2022 02/08/2023 1 1 [facility]* Diagnostic Procedure Only (Urgent) - Closed Specialty Diagnoses / Procedures Referred By Cassie t Referred To Contact XR IMAGING Diagnoses Right elbow pain Procedures XR ELBOW SPECIAL VIEWS AP/LAT/OTHER RIGHT RADEX ELBOW COMPLETE MINIMUM 3 VIEWS Karrie Rosario APRN.CNP [address] [place] [address] [place] [address] Referral ID Status Reason Start Date Expiration Date V isits Requested Visits Authorized [id number] Closed Auto-Generate d Referral 01/09/2022 02/08/2023 1 1 [facility] Advance Directives No Advanced Directives Records Found Advance Directive Response Recorded Date/ Time Living Will No December 16, 2021 1 1:00am Power of Repairer Evaporator No December 16, 2021 11:00am Advance Directive Response Recorded Date/ Time Living Will No May 13 10:57pm Power of Repairer Evaporator No May 13, 2022 10:57pm Chief Complaint and Reason for Visit Chief Complaint L RIB PAIN Health Concerns Infection Onset Date Last Indicated Resolved Time COVID-19 Rule-Out 10/12/2022 10/12/2022 Infection Onset Date Last Indicated Resolved Time COVID-19 Confirmed 10/12/2022 10/12/2022 Reason for Referral Specialty Diagnoses / Procedures Referred By Cassie t Referred To Contact Neurology Diagnoses Tremor Procedures CONSULT TO NEUROLOGY OFFICE/OUTPATIENT [facility] MDM 60 MINUTES Karrie Rosario APRN.CNP [address] [place] [address] Referral ID Status Reason Start Date Expiration Date Visits Requested Visits Authorized [id number] Authorized PCP Requested Referral 06/06/2024 06/06/2025 1 1 Summary Purpose Family History No Family History Records FoundNo Family History Records Found Additional Source Comments Goals (unrecognized section and content) Goals may be documented in a n alternate sectionGoals may be documented in an alternate section Source Comments (unrecognize d section and content) In the event this informatio n is protected by the Federal Confidentiality of Alcohol and Drug Abuse Patient Records regulations: The Federal rules restrict any use of the information to criminally investigate or prosecute any alcohol or drug abuse patient.[facility] the event this information is protected by the Federal Confidentiality of Alcohol and Drug Abuse Patient Records regulations: The Federal rules restrict any use of the information to criminally investigate or prosecute any alcohol or drug abuse patient.[facility] the event this information is protected by the Federal Confidentiality of Alcohol and Drug Abuse Patient Records regulations: The Federal rules restrict any use of the information to criminally investigate or prosecute any alcohol or drug abuse patient.[facility] HealthIn the event this information is protected by the Federal Confidentiality of Alcohol and Drug Abuse Patient Records regulations: The Federal rules restrict any use of the information to criminally investigate or prosecute any alcohol or drug abuse patient.[facility] HealthIn the event this information is protected by the Federal Confidentiality of Alcohol and Drug Abuse Patient Records regulations: The Federal rules restrict any use of the information to criminally investigate or prosecute any alcohol or drug abuse patient.[facility] HealthIn the event this information is protected by the Federal Confidentiality of Alcohol and Drug Abuse Patient Records regulations: The Federal rules restrict any use of the information to criminally investigate or prosecute any alcohol or drug abuse patient.[facility] HealthIn the event this information is protected by the Federal Confidentiality of Alcohol and Drug Abuse Patient Records regulations: The Federal rules restrict any use of the information to criminally investigate or prosecute any alcohol or drug abuse patient.[facility] HealthIn the event this information is protected by the Federal Confidentiality of Alcohol and Drug Abuse Patient Records regulations: The Federal rules restrict any use of the information to criminally investigate or prosecute any alcohol or drug abuse patient.[facility] HealthIn the event this information is protected by the Federal Confidentiality of Alcohol and Drug Abuse Patient Records regulations: The Federal rules restrict any use of the information to criminally investigate or prosecute any alcohol or drug abuse patient.[facility] HealthIn the event this information is protected by the Federal Confidentiality of Alcohol and Drug Abuse Patient Records regulations: The Federal rules restrict any use of the information to criminally investigate or prosecute any alcohol or drug abuse patient.[facility] HealthIn the event this information is protected by the Federal Confidentiality of Alcohol and Drug Abuse Patient Records regulations: The Federal rules restrict any use of the information to criminally investigate or prosecute any alcohol or drug abuse patient.[facility] HealthIn the event this information is protected by the Federal Confidentiality of Alcohol and Drug Abuse Patient Records regulations: The Federal rules restrict any use of the information to criminally investigate or prosecute any alcohol or drug abuse patient.[facility] HealthIn the event this information is protected by the Federal Confidentiality of Alcohol and Drug Abuse Patient Records regulations: The Federal rules restrict any use of the information to criminally investigate or prosecute any alcohol or drug abuse patient.[facility] HealthIn the event this information is protected by the Federal Confidentiality of Alcohol and Drug Abuse Patient Records regulations: The Federal rules restrict any use of the information to criminally investigate or prosecute any alcohol or drug abuse patient.[facility] HealthIn the event this information is protected by the Federal Confidentiality of Alcohol and Drug Abuse Patient Records regulations: The Federal rules restrict any use of the information to criminally investigate or prosecute any alcohol or drug abuse patient.[facility] HealthIn the event this information is protected by the Federal Confidentiality of Alcohol and Drug Abuse Patient Records regulations: The Federal rules restrict any use of the information to criminally investigate or prosecute any alcohol or drug abuse patient.[facility] HealthIn the event this information is protected by the Federal Confidentiality of Alcohol and Drug Abuse Patient Records regulations: The Federal rules restrict any use of the information to criminally investigate or prosecute any alcohol or drug abuse patient.[facility] HealthIn the event this information is protected by the Federal Confidentiality of Alcohol and Drug Abuse Patient Records regulations: The Federal rules restrict any use of the information to criminally investigate or prosecute any alcohol or drug abuse patient.[facility] HealthIn the event this information is protected by the Federal Confidentiality of Alcohol and Drug Abuse Patient Records regulations: The Federal rules restrict any use of the information to criminally investigate or prosecute any alcohol or drug abuse patient.[facility] HealthIn the event this information is protected by the Federal Confidentiality of Alcohol and Drug Abuse Patient Records regulations: The Federal rules restrict any use of the information to criminally investigate or prosecute any alcohol or drug abuse patient.[facility] HealthIn the event this information is protected by the Federal Confidentiality of Alcohol and Drug Abuse Patient Records regulations: The Federal rules restrict any use of the information to criminally investigate or prosecute any alcohol or drug abuse patient.[facility] HealthIn the event this information is protected by the Federal Confidentiality of Alcohol and Drug Abuse Patient Records regulations: The Federal rules restrict any use of the information to criminally investigate or prosecute any alcohol or drug abuse patient.[facility] HealthIn the event this information is protected by the Federal Confidentiality of Alcohol and Drug Abuse Patient Records regulations: The Federal rules restrict any use of the information to criminally investigate or prosecute any alcohol or drug abuse patient.[facility] Reason for Visit (unrecogniz ed section and content) Reason Comments Patient Question Reason Comments Acute Visit Left finger sutures removel Reason Comments Pain right elbow and shou lder pain x4 days, no injury Reason Comments Orders Requesting lab work Reason Comments Orders Reason Comments Follow Up 6 month with labs Reason Comments Cough Cough, chest congest ion, SOB, fever and bodyaches x 2 months but got worse last night Reason Comments Results Reason Onset Date Comments Refill Request 11/08/2022 Reason Comments Follow Up 3 month and labs Reason Comments Follow Up 3 month follow up Reason Comments Refill Request Reason Comments Erroneous encounter-disregard Reason Comments Follow Up 3 month follow up wi th labs Reason Comments Follow Up 3 month follow up an d labs Reason Comments Low Blood Sugar Reason Comments Patient Request Reason Comments Results Labs Reason Onset Date Comments Refill Request 09/26/2024 Reason Comments Follow Up 3 month Care Teams (unrecognized sec tion and content) Vehicle Safety Inspector Relationship Specialty Start Date End Date Cisco Koroma MD [address] [place] [address] PCP - General 08/27/09 Vehicle Safety Inspector Relationship Specialty Start Date End Date Cisco Koroma MD [address] [place] [address] PCP - General 08/27/09 Vehicle Safety Inspector Relationship Specialty Start Date End Date Cisco Koroma MD [address] [place] [address] PCP - General 08/27/09 Vehicle Safety Inspector Relationship Specialty Start Date End Date Cisco Koroma MD [address] [place] [address] PCP - General 08/27/09 Vehicle Safety Inspector Relationship Specialty Start Date End Date Cisco Koroma MD [address] [place] [address] PCP - General 08/27/09 Vehicle Safety Inspector Relationship Specialty Start Date End Date Cisco Koroma MD [address] [place] [address] PCP - General 08/27/09 Vehicle Safety Inspector Relationship Specialty Start Date End Date Cisco Koroma MD [address] [place] [address] PCP - General 08/27/09 Vehicle Safety Inspector Relationship Specialty Start Date End Date Cisco Koroma MD [address] [place] [address] PCP - General 08/27/09 Vehicle Safety Inspector Relationship Specialty Start Date End Date Cisco Koroma MD [address] [place] [address] PCP - General 08/27/09 Vehicle Safety Inspector Relationship Specialty Start Date End Date Cisco Koroma MD [address] [place] [address] PCP - General 08/27/09 Vehicle Safety Inspector Relationship Specialty Start Date End Date Cisco Koroma MD [address] [place] [address] PCP - General 08/27/09 Vehicle Safety Inspector Relationship Specialty Start Date End Date Cisco Koroma MD [address] [place] [address] PCP - General 08/27/09 Vehicle Safety Inspector Relationship Specialty Start Date End Date Cisco Koroma MD [address] [place] [address] PCP - General 08/27/09 Vehicle Safety Inspector Relationship Specialty Start Date End Date Cisco Koroma MD [address] [place] [address] PCP - General 08/27/09 Vehicle Safety Inspector Relationship Specialty Start Date End Date Cisco Koroma MD [address] [place] [address] PCP - General 08/27/09 Vehicle Safety Inspector Relationship Specialty Start Date End Date Cisco Koroma MD [address] [place] [address] PCP - General 08/27/09 Karrie Rosario APRN.[place] [employer]INE [employer]PER[employer] [address] [place] [address] [employer] [facility] 07/08/24 Vehicle Safety Inspector Relationship Specialty Start Date End Date Cisco Koroma MD [address] [place] [address] PCP - General 08/27/09 Karrie Rosario APRN.[place] [employer] OPERATOR [address] [place] [address] [employer] Family [facility] 07/08/24 Cal Ellison APRN.[place] [employer] OPERATOR [address] [place] [address] [employer] Family [facility] 07/17/24 Vehicle Safety Inspector Relationship Specialty Start Date End Date Cisco Koroma MD [address] [place] [address] PCP - General 08/27/09 Karrie Rosario APRN.[place] [employer]INE OPERATOR [address] [place] [address] [employer] Family [facility] 07/08/24 Cal Ellison APRN.[place] [employer]INE OPERATOR [address] [place] [address] [facility] 07/17/24 Vehicle Safety Inspector Relationship Specialty Start Date End Date Cisco Koroma MD [address] [place] [address] PCP - General 08/27/09 Karrie Rosario, LANDY.[place] [employer] OPERATOR [address] [place] [address] [facility]24 Cal Ellison APRN.[place] [employer] OPERATOR [address] [place] [address] [facility] 07/17/24 Vehicle Safety Inspector Relationship Specialty Start Date End Date Cisco Koroma MD [address] [place] [address] PCP - General 08/27/09 Karrie Rosario APRN.[place] [employer] OPER[employer] [address] [place] [address] [facility] 07/08/24 Cal Ellison APRN.[place] [employer] O[employer] [address] [place] [address] [facility] 07/17/24 (unrecognized sect ion and content) No Status Records FoundNo Status Records Found INFORMATION SOURCE (unrecogn ized section and content) DATE CREATED AUTHOR 10/28/2024 [facility] DATE CREATED AUTHOR AUTHOR'S HARJIT ATION 04/09/2025 [facility] FOR RECORDS PERTAINING TO PATIENTS WHO ARE OR HAVE BEEN ENROLLED IN A CHEMICAL DEPENDENCY/SUBSTANCEABUSE PROGRAM, SOME INFORMATION MAY BE OMITTED. This clinical summary was aggregated from multiple sources. Caution should be exercised in using it in the provision of clinical care. This summary normalizes information from multiple sources, and as a consequence, information in this document may materially change the coding, format and clinical context of patient data. In addition, data may be omitted in some cases. CLINICAL DECISIONS SHOULD BE BASED ON THE PRIMARY CLINICAL RECORDS. [employer] [facility]. provides no warranty or guarantee of the accuracy or completeness of information in this document.
[2025-04-13 10:12] LABS: Creatinine, Urine (random) 69.30 mg/dL (39.00-259.00); Microalbumin,Random Urine < 12.0 mg/L (<20 mg/L)
[2025-04-13 10:23] LABS: AST(SGOT) 17 U/L (<=37); Alanine Aminotransfer ALT/SGPT 14 U/L (<=46); Albumin, Serum 4.3 g/dL (3.4-4.8); Alkaline Phosphatase 67 U/L (40-129); Anion Gap 11 (5-15); BUN 23 mg/dL (4-19); BUN/Creat Ratio 19.8 RATIO (10-20); Calcium,Total 9.1 mg/dL (7.6-11.0); Carbon Dioxide 24.6 mmol/L (21.0-32.0); Chloride 104 mmol/L (98-108); Cholesterol 157 mg/dL (<=200); Globulin 2.4 g/dL (2.2-4.2); Glucose 175 mg/dL (70-99); Low Density Lipoprotein Calc. 79 mg/dL; Potassium 4.3 mmol/L (3.3-5.1); Triglycerides 63 mg/dL; Very Low Density Lipoprotein 13 mg/dL (5-40); cholesterol:hdl ratio screen 2.39
== END | disposition home or self-care (01) ==
PROVIDERS: PCP Family Medicine; Referring Provider Nurse Practitioner Family; Visit Provider Nurse Practitioner Family
DX: E11.9 Type 2 diabetes mellitus without complications (principal); E78.5 Hyperlipidemia, unspecified
CPT/HCPCS: 36415; 80053; 80061; 82043; 82570; 83036